=== PATIENT | female | born 1970 | race Caucasian/White ===

== ENCOUNTER 2020-06-26 12:10 | Outpatient (CLI) | payer MEDICARE, MEDICAID, SELFPAY ==
--- NOTE | 2020-06-26 12:26 | XRR_ITS ---
PROCEDURE INFORMATION: Exam: XR Chest, 2 Views Exam date and time: 06/26/2020 12:39 PM Age: 49 years old Clinical indication: Other: Hemoptysis; Prior surgery; Surgery type: Port; Patient HX: Lymphoma TECHNIQUE: Imaging protocol: XR of the chest Views: 2 views. COMPARISON: CR Chest 1 [place] [id number] 11/19/2018 3:25 PM FINDINGS: Lungs: Unremarkable. No consolidation. Pleural space: Unremarkable. No pleural effusion. No pneumothorax. Heart/Mediastinum: Unremarkable. No cardiomegaly. Bones/joints: Unremarkable. XR/XR chest 2V* [id number] IMPRESSION: No acute findings.
== END 2020-06-26 12:11 | disposition home or self-care (01) ==
PROVIDERS: PCP Family Medicine; Visit Provider Family Medicine
DX: R04.2 Hemoptysis (principal)
CPT/HCPCS: 71046

== ENCOUNTER 2020-07-06 11:19 | Outpatient (CLI) | payer MEDICARE, MEDICAID, SELFPAY ==
--- NOTE | 2020-07-06 11:27 | CT_ITS ---
WS: [id number] CT CHEST TECHNIQUE: Contrast enhanced CT of the chest with coronal and sagittal reformatted images. CLINICAL INFORMATION: HEMOPTYSIS COMPARISON: None. DLP: 555.[address] scans at [facility] use at least one of these dose optimization techniques: automat ed exposure control; mA and/or kV adjustment per patient size (includes targeted exams where dose is matched to clinical indication); or iterative reconstruction. FINDINGS: Cavitating thick-walled fluid-filled lesion in the superior segment right lower lobe posterior medial ly with air locules. Lobulated lesion measures approximately 1.5 x 2.5 x 2.3 CM. Small amount of surr ounding infiltrate. Additional adjacent small satellite nodules. Small amount of associated pleural t hickening. Mild chronic emphysematous changes. Slight bibasilar atelectasis. No other suspicious pulmonary paren chymal abnormalities. Normal caliber thoracic aorta. Proximal main pulmonary arteries are normal. A f ew prominent right hilar, peribronchial and AP window lymph nodes upper limits of normal. No axillary lymphadenopathy. Adrenal glands are normal. Mild diffuse fatty infiltration liver. CT/CT chest w con* [id number] IMPRESSION: 1. Cavitating centrally necrotic intraparenchymal mass in the super segment ri ght lower lobe posterior medially. Lesion measures 1.5 x 2.5 x 2.3 cm with a fe w locules of air. Primary consideration is pulmonary abscess. Additional consid erations include cavitary neoplasm, and fungal or granulomatous infection. Chang mmend correlation with clinical symptoms and follow-up to resolution. 2. A few prominent right hilar, peribronchial, and AP window lymph nodes upper limits of normal. 3. Mild chronic emphysematous changes. 4. Mild diffuse fatty infiltration liver.
[2020-07-06] MEDS: iohexol 300 mg/mL 100 mL Btl IV (11:56)
== END 2020-07-06 11:20 | disposition home or self-care (01) ==
PROVIDERS: PCP Family Medicine; Visit Provider Family Medicine
DX: R04.2 Hemoptysis (principal); R91.8 Other nonspecific abnormal finding of lung field; K76.0 Fatty (change of) liver, not elsewhere classified
CPT/HCPCS: 71260; Q9967

== ENCOUNTER 2020-08-10 09:50 | Outpatient (CLI) | payer MEDICARE, MEDICAID, SELFPAY ==
--- NOTE | 2020-08-10 09:58 | XR_ITS ---
WS: [id number] HIP WITH PELVIS LEFT TECHNIQUE: 3 views of the left hip with pelvis CLINICAL INFORMATION: LEFT HIP PAIN COMPARISON: None. FINDINGS: Osteopenia. Postoperative changes intramedullary warren and screw fixation left hip and proximal femur. No evidence of hardware loosening. Distal femoral warren is intact. XR/XR hip LT 2-3V wo/w pel* [id number] IMPRESSION: Stable intramedullary warren and screw fixation left hip and proximal femur. No ev idence of hardware loosening.
== END 2020-08-10 09:51 | disposition home or self-care (01) ==
PROVIDERS: PCP Family Medicine; Visit Provider Family Medicine
DX: M25.552 Pain in left hip (principal)
CPT/HCPCS: 73502

== ENCOUNTER → 2020-12-08 12:56 | Outpatient (BNVA) | payer MEDICARE, MEDICAID, SELFPAY | PROVIDERS: PCP Family Medicine; Visit Provider Internal Medicine Pulmonary Disease | DX: R06.02 Shortness of breath (principal); Z20.822 Contact with and (suspected) exposure to COVID-19 | CPT/HCPCS: 87635 ==

== ENCOUNTER 2020-12-14 13:24 | Outpatient (CLI) | payer MEDICARE, MEDICAID, SELFPAY ==
--- NOTE | 2020-12-14 13:30 | CT_ITS ---
WS: [id number] CT CHEST WITHOUT INTRAVENOUS CONTRAST HISTORY: Resolution of pneumonia vs mass lesion in RLL TECHNIQUE: Contiguous 5 mm axial imaging performed on the thorax. Coronal and sagittal reformats are submitted. All CT scans at [facility] use at least one of these dose optimization techniq ues: automated exposure control; mA and/or kV adjustment per patient size (includes targeted exams wh ere dose is matched to clinical indication); or iterative reconstruction. CONTRAST: None DLP: 515.55 mGy.cm COMPARISON: 07/06/2020 Lungs and central airway: There is been significant improvement in the recently described cavitary le radha in the RIGHT lower lobe. There is a small amount of scarring with pleural thickening and tetheri ng at the abscess site. No residual cavity or nodule. Stable 2 mm partially calcified nodule in the R IGHT lower lobe. No suspicious masses. No effusion. Pleura: Normal. No pleural effusion. Heart and pericardium: Normal size heart with no pericardial effusion. Mediastinum and viki: No mediastinum or hilar adenopathy. Vessels: Mild atherosclerosis aorta. Normal size pulmonary artery. Chest wall and lower neck: No soft tissue masses. Upper abdomen: No change. Osseous structures: No destructive process. CT/CT chest wo con [id number] IMPRESSION: 1. Resolution of the cavitary lesion in the RIGHT lower lobe seen on 0 consistent with an abscess. There is very minimal parenchymal scar remaining. 2. No adenopathy.
--- NOTE | 2020-12-14 14:44 | PFTS_ITS ---
Date of Study:12/14/20 Date of Dictation: MECHANICS: Forced vital capacity (FVC) is reduced. Forced expiratory volume in one second (FEV1) is normal. FEV1/FVC is normal. FLOW VOLUME LOOP: Normal. LUNG VOLUMES: Not measured DIFFUSING CAPACITY FOR CARBON MONOXIDE: Moderately reduced INTERPRETATION: The prebronchodilator spirometry is consistent with mild restriction. Lung volumes are not measured. Gas exchange (DLCO) is moderately reduced. MTDD
== END 2020-12-14 13:25 | disposition home or self-care (01) ==
LOC: RAD 13:27
PROVIDERS: PCP Family Medicine; Visit Provider Internal Medicine Pulmonary Disease
DX: J44.9 Chronic obstructive pulmonary disease, unspecified (principal); Z71.6 Tobacco abuse counseling; F17.200 Nicotine dependence, unspecified, uncomplicated; R91.8 Other nonspecific abnormal finding of lung field; J69.0 Pneumonitis due to inhalation of food and vomit; C14.0 Malignant neoplasm of pharynx, unspecified
CPT/HCPCS: 71250; 94010; 94729

== ENCOUNTER 2021-03-05 07:58 | Outpatient (CLI) | payer MEDICARE, MEDICAID, SELFPAY ==
--- NOTE | 2021-03-05 08:00 | CT_ITS ---
WS: [id number] CT ANGIOGRAPHY OF THE ABDOMINAL AORTA WITH RUNOFF TO THE ANKLES HISTORY: I25.10 - Atherosclerotic heart disease of [place] coronary... TECHNIQUE: Arterial injection is performed during imaging to evaluate the aorta and runoff vessels to the ankles. MIP and volume rendering imaging has also been performed. All images are reviewed. All C T scans at [facility] use at least one of these dose optimization techniques: automated ex posure control; mA and/or kV adjustment per patient size (includes targeted exams where dose is match ed to clinical indication); or iterative reconstruction. Contrast: Omnipaque 300; 75 mL IV. DLP: 1242.26 mGycm COMPARISON: None available. Abdominal aorta: Moderate atherosclerotic plaque in the suprarenal aorta. Below the level of the wisam l arteries there is significant intimal thickening measuring up to 7 mm along the LEFT lateral aorta. Complete occlusion of the distal aorta just prior to the bifurcation. RIGHT lower extremity arterial system: Dense calcified plaque and the common iliac artery is occluded . Reconstitution with flow identified in the internal iliac artery. There is reconstitution of rn utilization management um al iliac flow into the femoral artery over the acetabulum. There is calcified plaque with narrowing n ear 50% involving the femoral artery. Deep profunda and SFA are intact. Popliteal artery is intact. T here is three-vessel runoff to the ankle but the caliber of the vessels is small. LEFT lower extremity arterial system: LEFT common iliac artery is occluded with heavy calcified plaqu e. Reconstitution through smaller collaterals in the internal iliac artery. There is reconstitution i nto the LEFT femoral artery over the acetabulum. Small amount of calcified plaque in the common femor al artery. Deep profunda and SFA are intact although small caliber. Three-vessel runoff to the ankle but the arteries are small caliber. Chronic emphysematous changes at the lung bases. Heart is normal size. Liver, spleen, gallbladder, pa ncreas, adrenals and kidneys are negative for acute process or mass. No adenopathy or ascites or flui d. Moderate constipation. No GI tract obstruction. Normal urinary bladder. Fatty atrophy of the RIGHT va stus medialis. Intramedullary warren in the LEFT femur. CT/CT angio abd aorta runof [id number] IMPRESSION: 1. 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 2. Collateral reconstitution bilaterally in the distal common femoral arteries . 3. Three-vessel runoff to the ankles but the vessels are small caliber.
[2021-03-05] MEDS: iohexol 350 mg/mL 100 mL Btl IV (08:46)
== END 2021-03-05 07:59 | disposition home or self-care (01) ==
PROVIDERS: PCP Family Medicine; Visit Provider Internal Medicine Cardiovascular Disease
DX: I25.10 Atherosclerotic heart disease of native coronary artery without angina pectoris (principal); I73.9 Peripheral vascular disease, unspecified; I74.5 Embolism and thrombosis of iliac artery; I74.09 Other arterial embolism and thrombosis of abdominal aorta
CPT/HCPCS: 75635; Q9967

== ENCOUNTER → 2021-07-06 14:21 | Outpatient (BNVA) | payer MEDICARE, MEDICAID, SELFPAY | PROVIDERS: PCP Family Medicine; Visit Provider Surgery | DX: Z20.822 Contact with and (suspected) exposure to COVID-19 (principal) | CPT/HCPCS: 87635 ==

== ENCOUNTER 2021-07-11 09:37 | Day surgery (SDC) | payer MEDICARE, MEDICAID, SELFPAY ==
[2021-07-09 13:45] VITALS: BMI 21.5
--- NOTE | 2021-07-11 09:58 | ANES.PREANE2 ---
Pre-Anesthetic Assessment Pre-Anesthetic Assessment: Height/Weight: Height 1.57 m Weight 53.524 kg Preop Diagnosis: Screening colonoscopy Proposed Procedure: Operation Date: 07/11/21 10:45 Proposed Procedures p Colonoscopy 32304 Z12.11(Not Applicable) - Richard Meneses MD Was Beta Milly taken within 24 hours: Yes Was Clonidine taken within 24 hours: N/A Social: Social History: Tobacco and No alcohol Exam: Pre-Anes Outpt Exam: alert, oriented x 3 and regular rate & rhythm Airway: Submandibular: WNL Cervical ROM: WNL MP: 2 Dentition: Chipped Additional comments: Poor dentition Pulmonary: Pulmonary: COPD and Sleep apnea CV/HEM: CV/HEM: Anemia, CAD (stent), HTN and PVD GI: GI: GERD Metabolic: Metabolic: Hyperlipidemia Musc/skel: Comments: uses walker Neuropsych: Neuropsych: Neuropathy Anesthetic Plan: ASA status: 3 Anesthesia: MAC Risk of > 500 ml blood loss (7ml/kg in children): No PFSH Anesthesia PFSH: Medical History CAD (coronary artery disease) GERD (gastroesophageal reflux disease) History of femoral angiogram HTN (hypertension) Hypothyroidism Peripheral arterial disease Seizure disorder Throat cancer Surgical History H/O tubal ligation Family History Mother Osteoarthritis Sister Thyroid disease Social History Smoking and tobacco status: current every day smoker cigarettes Packs smoked per day: 0.5 Years cigarettes smoked: 37 Quit status (tobacco): considering quitting Second hand smoke exposure: Yes Smoking risk assessment/counseling performed?: Yes Alcohol intake: current Alcohol intake frequency: few times a week Caregiver/support person: Yes Lives independently: Yes Household members: none Housing: Manufactured/Mobile home Marital status: / Current occupational status: disabled Pets and animals: Yes History of recent travel: No Current gender identity: Female Data Anesthesia Cardiac Studies: No Data to Display
[2021-07-11 10:17] VITALS: BP 107/71; PULSE 115; RESP 18; TEMP 36.1; O2SAT 95
--- NOTE | 2021-07-11 10:24 | P.HP_ITS ---
Same Day Surgery H&P Indication for Procedure/HPI DATE OF PROCEDURE: July 11, 2021 CHIEF COMPLAINT/INDICATIONFOR SURGICAL PROCEDURE: Screening colonoscopy PREOP DIAGNOSIS: Screening colonoscopy PLANNED PROCEDRUE: Operation Date: 07/11/21 10:45 Proposed Procedures p Colonoscopy 65875 Z12.11(Not Applicable) - Richard Meneses MD ROS May 17, 2021 This is a pleasant 50 years old female patient referred to my practice to discuss screening colonoscopy. Patient denies any bleeding per rectum or hist ory of colon cancer yet she reports that she has history of lymphoma., Patient is referred for further evaluation for colonoscopy Interim history July 11, 2021. Patient comes today for screening colonoscopy Medications/Allergies* Home Medications Medication Instructions Recorded Confirmed Type alprazolam 2 mg tablet 2 mg PO BID 07/24/20 07/11/21 History cetirizine 10 mg capsule 10 mg PO DAILY 07/24/20 07/11/21 History clopidogrel 75 mg tablet 75 mg PO DAILY 07/24/20 07/11/21 History colchicine 0.6 mg tablet 0.6 mg PO DAILY 07/24/20 07/11/21 History cyclobenzaprine 10 mg tablet 10 mg PO TID 07/24/20 07/11/21 History ferrous sulfate 325 mg (65 mg 325 mg PO DAILY 07/24/20 07/11/21 History iron) tablet levothyroxine 112 mcg capsule 112 mcg PO DAILY 07/24/20 07/11/21 History mirtazapine 15 mg tablet 15 mg PO DAILY 07/24/20 07/11/21 History montelukast 10 mg tablet 10 mg PO DAILY 07/24/20 07/11/21 History omeprazole magnesium 20 mg 20 mg PO DAILY 07/24/20 07/11/21 History capsule,delayed release oxybutynin chloride 5 mg tablet 5 mg PO DAILY 07/24/20 07/11/21 History oxycodone 80 mg tablet,crush 80 mg PO BID 07/24/20 07/11/21 History resistant,extended release 12 hr prenat.vits,daniela,kza-nfaz-lpfyx 1 tab PO DAILY 07/24/20 07/11/21 History promethazine 25 mg tablet 25 mg PO TID PRN 07/24/20 07/11/21 History albuterol sulfate 90 mcg/actuation 2 inh INHALATION Q4H PRN 10/10/20 07/11/21 History breath activated powder inhaler oxycodone 15 mg tablet 15 mg PO Q4H PRN 10/10/20 07/11/21 History oxycodone 30 mg tablet 30 mg PO Q4H PRN 10/10/20 07/11/21 History oxycodone myristate 27 mg capsule 27 mg PO BID 10/10/20 07/11/21 History sprinkle extended release 12hr(DON'T CRUSH) potassium chloride 20 mEq 20 meq PO TID tab 11/29/20 07/11/21 History tablet,extended release bupropion HCl 100 mg tablet,12 hr 100 mg PO BID 12/27/20 07/11/21 History sustained-release gabapentin 1 unit PO DAILY 04/25/21 07/11/21 History Allergies/Adverse Reactions Allergy/AdvReac Type Severity Reaction Status Date / Time adhesive Allergy Unknown rash Verified 07/11/21 10:25 amoxicillin Allergy Unknown rash Verified 07/11/21 10:25 aspirin Allergy Unknown Verified 07/11/21 10:25 hydroxyzine Allergy rash Verified 07/11/21 10:25 morphine Allergy Unknown Verified 07/11/21 10:25 nicotine [From Nicotrol] Allergy Unknown Verified 07/11/21 10:25 nitrofurantoin Allergy ALGY-Wheezi Verified 07/11/21 10:25 [From Macrobid] ng petrolatum,white Allergy rash Verified 07/11/21 10:25 [From Vaseline] vancomycin Allergy rash Verified 07/11/21 10:25 Pertinent History/Comorbid Conditions* Medical History (Updated 05/20/21 @ 09:52 by Richard Meneses MD) CAD (coronary artery disease) GERD (gastroesophageal reflux disease) History of femoral angiogram HTN (hypertension) Hypothyroidism Peripheral arterial disease Seizure disorder Throat cancer Surgical History (Updated 01/24/21 @ 15:14 by Alexandra Alcala MD) H/O tubal ligation Family History (Updated 07/24/20 @ 16:20 by Chaz Read LPN) Osteoarthritis Mother Thyroid disease Sister Social History Smoking and tobacco status: current every day smoker cigarettes Packs smoked per day: 0.5 Years cigarettes smoked: 37 Quit status (tobacco): considering quitting Second hand smoke exposure: Yes Smoking risk assessment/counseling performed?: Yes Alcohol intake: current Alcohol intake frequency: few times a week Caregiver/support person: Yes Lives independently: Yes Household members: none Housing: Manufactured/Mobile home Marital status: / Current occupational status: disabled Pets and animals: Yes History of recent travel: No Current gender identity: Female Pertinent Exam Findings alert, oriented x 3, regular rate & rhythm and procedure specific exam findings (Abdominal examination nontender nondistended soft) Recommendations Surgery/Procedure today (Colonoscopy with possible biopsy) Coding Level of Care Code Acute Family Engagement Specialist for Luc Rivers
[2021-07-11] MEDS: sodium chloride 0.9% 1,000 ML 30 ML IV (10:25)
[2021-07-11 11:36] VITALS: BP 105/68; PULSE 105; RESP 16; TEMP 36.1; O2SAT 93
[2021-07-11 12:00] VITALS: BP 101/73; PULSE 97; RESP 18; O2SAT 92
--- NOTE | 2021-07-11 12:52 | ANES.PREANE2 ---
Pre-Anesthetic Assessment Pre-Anesthetic Assessment: Height/Weight: Height 1.57 m Weight 53.524 kg Temp Pulse Resp BP Pulse Ox 97.0 F L 97 18 101/73 92 07/11/21 11:36 07/11/21 12:00 07/11/21 12:00 07/11/21 12:00 07/11/21 12:00 Preop Diagnosis: Screening colonoscopy Proposed Procedure: Operation Date: 07/11/21 10:45 Proposed Procedures p Colonoscopy 03188 Z12.11(Not Applicable) - Richard Meneses MD Was Beta Milly taken within 24 hours: N/A Was Clonidine taken within 24 hours: N/A Last intake: Intake Last Liquid Date 07/10/21 Last Liquid Time 00:00 Last Solid Date 07/09/21 Last Solid Time 00:00 PFSH Anesthesia PFSH: Medical History CAD (coronary artery disease) GERD (gastroesophageal reflux disease) History of femoral angiogram HTN (hypertension) Hypothyroidism Peripheral arterial disease Seizure disorder Throat cancer Surgical History H/O tubal ligation Family History Mother Osteoarthritis Sister Thyroid disease Social History Smoking and tobacco status: current every day smoker cigarettes Packs smoked per day: 0.5 Years cigarettes smoked: 37 Quit status (tobacco): considering quitting Second hand smoke exposure: Yes Smoking risk assessment/counseling performed?: Yes Alcohol intake: current Alcohol intake frequency: few times a week Caregiver/support person: Yes Lives independently: Yes Household members: none Housing: Manufactured/Mobile home Marital status: / Current occupational status: disabled Pets and animals: Yes History of recent travel: No Current gender identity: Female Data Anesthesia Cardiac Studies: No Data to Display
--- NOTE | 2021-07-11 12:53 | ANE.PACU2 ---
Inpatient post-anesthesia follow up: Airway intact: Yes Vital signs: Temperature 97.0 F Pulse Rate 97 Respiratory Rate 18 Blood Pressure 101/73 Pulse Oximetry 92 Oxygen Delivery Me thod Room Air Oxygen Flow Rate Fraction of Inspir ed Oxygen Hydration adequate: Yes Nausea and vomiting: No Mental status: Baseline
== END 2021-07-11 12:26 | disposition home or self-care (01) ==
PROVIDERS: PCP Family Medicine; Visit Provider Surgery
PROC: 0DJD8ZZ Inspection of Lower Intestinal Tract, Via Natural or Artificial Opening Endoscopic (ICD-10-PCS; CPT 45378; principal; 2021-07-11 10:45)
DX: Z12.11 Encounter for screening for malignant neoplasm of colon (principal); I25.10 Atherosclerotic heart disease of native coronary artery without angina pectoris; K21.9 Gastro-esophageal reflux disease without esophagitis; I10 Essential (primary) hypertension; E03.9 Hypothyroidism, unspecified; Z85.89 Personal history of malignant neoplasm of other organs and systems; F17.210 Nicotine dependence, cigarettes, uncomplicated; J44.9 Chronic obstructive pulmonary disease, unspecified; G47.30 Sleep apnea, unspecified; Z95.5 Presence of coronary angioplasty implant and graft; E78.5 Hyperlipidemia, unspecified
CPT/HCPCS: 96360; 96361; G0121; J2704; J7030

== ENCOUNTER → 2021-07-23 16:20 | Outpatient (BNVA) | payer MEDICARE, MEDICAID, SELFPAY | PROVIDERS: PCP Family Medicine; Visit Provider Internal Medicine Pulmonary Disease | DX: Z20.822 Contact with and (suspected) exposure to COVID-19 (principal) | CPT/HCPCS: 87635 ==

== ENCOUNTER 2021-08-21 08:11 | Outpatient (CLI) | payer MEDICARE, MEDICAID, SELFPAY ==
[2021-08-21 08:30] VITALS: BMI 21.4
--- NOTE | 2021-08-21 08:32 | ECG_ITS ---
[facility] Test Date: 2021-08-21 Pat Name: Amanda Hutchinson Department: Room: Gender: Female It Support Analyst: : 1970 Requested By: Alexandra Alcala Order Number: [id number] Alexx MD: Alexandra Alcala M.D. Interpretive Statements NAME OF STUDY: LEXISCAN SESTAMIBI STRESS TEST INDICATION: Chest Pain; Shortness of Breath PROCEDURE: At the baseline, the blood pressure was 109/75 mmHg, oxygen saturation 93% with a heart rate of of 101 bpm. The electrocardiogram showed sinus tachycardia, normal axis. Poor anterior R wave progression. The Lexiscan was infused over a period of 20 seconds. A total of 0.4 milligrams of Lexiscan was infused. The stress phase was continued for a total of 5 minutes. Heart rate at the end of the stress phase was 119 bpm, oxygen saturation 93% with a blood pressure of 114/58 mmHg. The EKG at the peak infusion revealed sinus tachycardia with no significant ST-T wave changes. Sestamibi was injected 20 seconds after the Lexiscan infusion. Blood pressure at the end of the recovery phase was 109/56 mmHg, oxygen saturation 93% with a heart rate of 120 beats per minute. CONCLUSION: 1. No significant EKG changes with the LexiScan infusion. 2. No LexiScan induced chest pain or cardiac arrhythmia. 3. Normal blood pressure and heart rate response. 4. Sestamibi/sestamibi perfusion scan pending; see separate report. Electronically Signed On 08-24-2021 13:27:12 EMPLOYEE RELATIONS REPRESENTATIVE by Alexandra Alcala M.D. [id number]
--- NOTE | 2021-08-21 08:32 | NMCV_ITS ---
NM man perf SPECT r/s* [id number] Amanda Hutchinson Age: 50 Gender: F : 1970 Exam Date: 08/21/2021 08:32 Ordering Phys: Alexandra Alcala MD ([email or web address]) Technologist: ELIECER Vilchis Exam Location: [facility] Indications: HYPERTENSION STRESS TEST Please see separate stress test report in [facility] for full findings IMAGE PROTOCOL Rest/Stress 1 Lexiscan Day Radiopharmaceutical Dose (mCi) Administration Site Administered by Rest: Tc-99m 10.6 IV ELIECER Vilchis Sestamibi Stress:Tc-99m 32.5 IV ELIECER Villareal Sestamibi Rest: 21-Aug-2021 60 Discovery 630 Stress: 21-Aug-2021 30 Discovery 630 0.4mg Lexiscan. Images obtained in supine and prone position. SPECT RESULTS Technical Quality: Excellent Raw Data Analysis: Normal Image Corrections: No attenuation or motion correction applied Summed Stress Score: 8 Summed Rest Score: 4 Summed Difference Score: 4 PERFUSION FINDINGS Small sized perfusion abnormality of mild severity of apical inferior, apical lateral and apical jason on rest images with mild reversibility in apical lateral wall. There is improved tracer uptake on prone stress images. FUNCTIONAL RESULTS (calculated via Gated SPECT) Stress Image LV EF (%): 64 Stress EDV (mL):67 TID: 1.05 Stress ESV (mL):24 FUNCTIONAL FINDINGS: The left ventricle is normal in size. Transient Ischemia Dilatation of 1.1. There is normal left ventricular systolic function. The left ventricular ejection fraction is normal with a value of 64%. There is normal left ventricular wall thickening with no regional wall motion abnormality. IMPRESSIONS 1. Small sized perfusion abnormality of mild severity of apical inferior, apical lateral and apical jason. 2. This likely represent attenuation artifact. Old myocardial infarction in left anterior descending artery territory with mild johnnie-infarct ischemia cannot be completely ruled out. 3. Overall left ventricular systolic function is normal without regional wall motion abnormalities. 4. The left ventricular ejection fraction is normal with a value of 64%. 5. EKG portion of the study will be reported separately. Alexandra Alcala MD (Electronically Signed) Final Date: 23 August 2021 17:41 S
[2021-08-21] MEDS: regadenoson 0.4 Mg/5 ml Syringe IVP (10:23)
[2021-08-21 10:40] VITALS: BP 115/68; PULSE 120
== END 2021-08-21 08:12 | disposition home or self-care (01) ==
PROVIDERS: PCP Family Medicine; Visit Provider Internal Medicine Cardiovascular Disease
DX: R07.9 Chest pain, unspecified (principal); R06.02 Shortness of breath
CPT/HCPCS: 78452; 93017; A9500; J2785

== ENCOUNTER → 2022-03-08 09:29 | Outpatient (BNVA) | payer MEDICARE, MEDICAID, SELFPAY | PROVIDERS: PCP Family Medicine; Visit Provider Internal Medicine Pulmonary Disease | DX: J44.9 Chronic obstructive pulmonary disease, unspecified (principal); C14.0 Malignant neoplasm of pharynx, unspecified; J98.4 Other disorders of lung; R05.8 Other specified cough; F17.210 Nicotine dependence, cigarettes, uncomplicated; I10 Essential (primary) hypertension; K21.9 Gastro-esophageal reflux disease without esophagitis; E03.9 Hypothyroidism, unspecified | CPT/HCPCS: 99214 ==

== ENCOUNTER 2022-05-08 13:07 | Outpatient (CLI) | payer MEDICARE, MEDICAID, SELFPAY ==
--- NOTE | 2022-05-08 14:31 | PFTS_ITS ---
Date of Study:05/08/22 Date of Dictation: MECHANICS: Forced vital capacity (FVC) is reduced. Forced expiratory volume in one second (FEV1) is normal. FEV1/FVC is normal. FLOW VOLUME LOOP: Hesitation throughout the expiratory limb of flow volume loop. LUNG VOLUMES: Total lung capacity (TLC) is normal. Residual volume (RV) is increased. DIFFUSING CAPACITY FOR CARBON MONOXIDE: Moderately reduced. INTERPRETATION: The prebronchodilator spirometry is consistent with moderate restriction. The postbronchodilator spirometry is consistent with mild restriction. The patient had a significant postbronchodilator response. Lung volumes are consistent with air trapping. Gas exchange (DLCO) is moderately reduced. MTDD
== END 2022-05-08 13:08 | disposition home or self-care (01) ==
LOC: RT 13:09
PROVIDERS: PCP Family Medicine; Visit Provider Internal Medicine Pulmonary Disease
DX: J98.4 Other disorders of lung (principal); J44.9 Chronic obstructive pulmonary disease, unspecified
CPT/HCPCS: 94060; 94618; 94726; 94729

== ENCOUNTER → 2022-06-24 15:15 | Outpatient (BNVA) | payer MEDICARE, MEDICAID, SELFPAY | PROVIDERS: PCP Family Medicine; Visit Provider Internal Medicine Pulmonary Disease | DX: R06.02 Shortness of breath (principal); J44.9 Chronic obstructive pulmonary disease, unspecified; J98.4 Other disorders of lung; F17.210 Nicotine dependence, cigarettes, uncomplicated; R05.8 Other specified cough; I73.9 Peripheral vascular disease, unspecified; I25.10 Atherosclerotic heart disease of native coronary artery without angina pectoris; I74.5 Embolism and thrombosis of iliac artery; I74.09 Other arterial embolism and thrombosis of abdominal aorta; R13.10 Dysphagia, unspecified; Z85.819 Personal history of malignant neoplasm of unspecified site of lip, oral cavity, and pharynx; Z92.21 Personal history of antineoplastic chemotherapy | CPT/HCPCS: 99214 ==

== ENCOUNTER 2022-08-08 09:56 | Outpatient (CLI) | payer MEDICARE, MEDICAID, SELFPAY ==
--- NOTE | 2022-08-08 10:00 | CT_ITS ---
WS: [id number] LDCT LUNG CANCER SCREENING TECHNIQUE: Noncontrast CT of the chest with coronal and sagittal reformatted images. CLINICAL INFORMATION: lung screenin COMPARISON: CT chest November 16, 2020 DLP: 75.07 mGy.cm DIvol: Mean CTDIvol: 1.60 (mGy) All CT scans at [facility] use at least one of these dose optimization techniques: automat ed exposure control; mA and/or kV adjustment per patient size (includes targeted exams where dose is matched to clinical indication); or iterative reconstruction. FINDINGS: Moderate chronic emphysematous changes. No acute pulmonary infiltrates. No focal pneumonia or pleural fluid. Bibasilar atelectasis. No suspicious pulmonary parenchymal opacities. Aortic calcification. N o mediastinal or hilar lymphadenopathy. Coronary calcification. Normal GE junction. Adrenal glands are normal. CT/CT lung screening [id number] IMPRESSION: LUNG-RADS: 1-Negative FOLLOW UP: 12 Month: Continue annual screening with LDCT
== END 2022-08-08 09:57 | disposition home or self-care (01) ==
LOC: RAD 09:57
PROVIDERS: PCP Family Medicine; Visit Provider Internal Medicine Pulmonary Disease
DX: Z12.2 Encounter for screening for malignant neoplasm of respiratory organs (principal); F17.210 Nicotine dependence, cigarettes, uncomplicated
CPT/HCPCS: 71271

== ENCOUNTER → 2022-11-12 14:21 | Outpatient (BNVA) | payer MEDICARE, MEDICAID, SELFPAY | PROVIDERS: PCP Family Medicine; Visit Provider Nurse Practitioner Family | DX: I10 Essential (primary) hypertension (principal); I73.9 Peripheral vascular disease, unspecified; F17.210 Nicotine dependence, cigarettes, uncomplicated | CPT/HCPCS: 99214 ==

== ENCOUNTER → 2022-11-27 14:19 | Outpatient (BNVA) | payer MEDICARE, MEDICAID, SELFPAY | PROVIDERS: PCP Family Medicine; Referring Provider Family Medicine; Visit Provider Orthopaedic Surgery | DX: M87.052 Idiopathic aseptic necrosis of left femur (principal) | CPT/HCPCS: 73502; 99213 ==

== ENCOUNTER → 2023-03-11 15:15 | Outpatient (BNVA) | payer MEDICARE, MEDICAID, SELFPAY | PROVIDERS: PCP Family Medicine; Visit Provider Internal Medicine Pulmonary Disease | DX: J44.9 Chronic obstructive pulmonary disease, unspecified (principal); J98.4 Other disorders of lung; F17.210 Nicotine dependence, cigarettes, uncomplicated; R05.8 Other specified cough; Z85.89 Personal history of malignant neoplasm of other organs and systems; R49.0 Dysphonia; I73.9 Peripheral vascular disease, unspecified; I25.10 Atherosclerotic heart disease of native coronary artery without angina pectoris | CPT/HCPCS: 99214 ==

== ENCOUNTER → 2023-04-29 13:46 | Outpatient (BNVA) | payer MEDICARE, MEDICAID, SELFPAY | PROVIDERS: PCP Family Medicine; Visit Provider Internal Medicine Cardiovascular Disease | DX: I73.9 Peripheral vascular disease, unspecified (principal); E03.9 Hypothyroidism, unspecified; I10 Essential (primary) hypertension; I25.10 Atherosclerotic heart disease of native coronary artery without angina pectoris; J44.9 Chronic obstructive pulmonary disease, unspecified; F17.210 Nicotine dependence, cigarettes, uncomplicated | CPT/HCPCS: 99214 ==

== ENCOUNTER 2023-05-21 12:54 | Outpatient (CLI) | payer MEDICARE, MEDICAID, SELFPAY ==
--- NOTE | 2023-05-21 13:45 | USCV_ITS ---
Amanda Hutchinson Age: 52 Gender: F : 1970 Exam Date: 05/21/2023 13:15 Ordering Phys: Alexandra Alcala MD ([email or web address]) Technologist: MARCELLO [place] [facility] [place]ication: aneurysm HISTORY: No known history of aortic aneurysm Diameter (cm) AP x Transverse x Length Velocity (cm/s) Waveform Prox Aorta: 1.70 x 1.61 x 63.30 Mid Aorta: 1.84 x 1.86 x 83.00 Distal Aorta: 1.88 x 1.81 x 53.10 Right Iliac Prox: 0.79 x 1.07 x 90.70 Left Iliac Prox: 0.83 x 1.18 x 92.50 Stent Prox Landing x x Aneurysmal Sac Max x x Lt Lat Sac Dim Rt Lat Sac Dim Stent Dist Landing x x Right Iliac Stent x x Left Iliac Stent x x Right Renal Art Left Renal Art FINDINGS: Comparison: none available. No evidence of abdominal aortic or bilateral iliac aneurysm. No significant stenosis noted in the abdominal aorta. There is no evidence of a right common iliac artery aneurysm. There is no evidence of a left common iliac artery aneurysm. CONCLUSIONS No evidence of abdominal aortic or bilateral iliac aneurysm. Dr. Kaitlin Mercado DO (Electronically Signed) Final Date: 21 May 2023 16:03 S
--- NOTE | 2023-05-21 14:30 | USR_ITS ---
PROCEDURE INFORMATION: Exam: US Duplex Bilateral Lower Extremity Arteries Exam date and time: 05/21/2023 1:25 PM Age: 52 years old Clinical indication: Leg, lower; Bilateral; Patient HX: Cold and painful lower extremities. Patient states arterial cleaning into iliacs ; Additional info: Pvd TECHNIQUE: Imaging protocol: Real-time ultrasound scan of the arteries of the bilateral lower extremities with 2-D joyner scale, color Doppler flow and spectral waveform analysis. Images documented and saved. [id number](s) are provided. COMPARISON: No recent ultrasound comparison studies currently available. Lower extremity runoff report of 03/05/2021. Hip radiograph report of 11/27/2022. FINDINGS: Right external iliac artery: The systolic velocity measurement is 73 cm/s. No occlusion or significant stenosis is currently appreciated. There is a history of previous occlusion with collateralization to the common femoral from the inferior epigastric and abdominal wall vessels. Consider also if there is interval intervention as there is some subtle wall undulation. Right common femoral artery: The systolic velocity measurement is 71 cm/s. No occlusion or significant stenosis is appreciated. Right profunda femoris artery: Not included. Right superficial femoral artery: The systolic velocity measurement is 97 cm/s. No occlusion or significant stenosis is appreciated. Right popliteal artery: The systolic velocity measurement is 73 cm/s. No occlusion or significant stenosis is appreciated. Right calf/foot arteries: The systolic velocity measurement is 113 cm/s. No occlusion or significant stenosis is appreciated. The provided right ankle-brachial index is 1.16. Left external iliac artery: The systolic velocity measurement is 76 cm/s. No occlusion or significant stenosis is currently appreciated. There is history of previous occlusion with collateralization to the common femoral from the inferior epigastric and abdominal wall vessels. Consider also if there is interval intervention as there is some subtle wall undulation. Left common femoral artery: The systolic velocity measurement is 79 cm/s. No occlusion or significant stenosis is appreciated. Left profunda femoris artery: Not included. Left superficial femoral artery: The systolic velocity measurement is 135 cm/s. No occlusion or significant stenosis is appreciated. Left popliteal artery: The systolic velocity measurement is 73 cm/s. No occlusion or significant stenosis is appreciated. Left calf/foot arteries: The systolic velocity measurement is 71 cm/s. No occlusion or significant stenosis is appreciated. The provided left ankle-brachial index is 1.18. Soft tissues: No subcutaneous fluid collections are appreciated. Other findings: No other significant interval changes are appreciated. US/[place] [id number] IMPRESSION: There is patent overall lower extremity arterial color Doppler flow with relatively triphasic waveform appearance bilaterally. No focal velocity doubling to indicate localized hemodynamically significant stenosis is currently appreciated.
== END 2023-05-21 12:55 | disposition home or self-care (01) ==
PROVIDERS: PCP Family Medicine; Visit Provider Internal Medicine Cardiovascular Disease
DX: I73.9 Peripheral vascular disease, unspecified (principal); I71.9 Aortic aneurysm of unspecified site, without rupture; M79.605 Pain in left leg; M79.604 Pain in right leg
CPT/HCPCS: 93925; 93978

== ENCOUNTER → 2023-06-30 10:12 | Outpatient (BNVA) | payer MEDICARE, MEDICAID, SELFPAY | PROVIDERS: PCP Family Medicine; Visit Provider Specialist | DX: M25.552 Pain in left hip; T84.84XA Pain due to internal orthopedic prosthetic devices, implants and grafts, initial encounter; Y83.8 Other surgical procedures as the cause of abnormal reaction of the patient, or of later complication, without mention of misadventure at the time of the procedure; Y79.2 Prosthetic and other implants, materials and accessory orthopedic devices associated with adverse incidents | CPT/HCPCS: 73502; 99204 ==

== ENCOUNTER 2023-07-07 14:22 | Outpatient (CLI) | payer MEDICARE, MEDICAID, SELFPAY ==
--- NOTE | 2023-07-07 14:28 | CT_ITS ---
WS: [id number] CT chest w con* [id number] HISTORY: HX OF NON HODGKIN'S LYMPHOMA/LUNG NODULE TECHNIQUE: Axial imaging performed through the thorax. Coronal and sagittal reformats are submitted. All CT scans at [facility] use at least one of these dose optimization techniques: automated exposure control; mA and/or kV adjustment per patient size (includes targeted exams where dose is mat ched to clinical indication); or iterative reconstruction. CONTRAST: Omnipaque 350; 100 mL IV. DLP: 284.95 mGy.cm COMPARISON: 08/08/2022 and 12/14/2020 Lungs and central airway: Hyperinflated lungs, no mass or nodule. Pleura: Normal. No pleural effusion. Heart and pericardium: Normal size heart with no pericardial effusion. Mediastinum and viki: There are a few small mediastinal and hilar lymph nodes. These lymph nodes are similar in size as compared to 08/08/2022. Largest lymph nodes measure 10 mm. Vessels: Mild atherosclerosis aorta. No aneurysm. Normal size pulmonary artery. Chest wall and lower neck: No soft tissue masses. Upper abdomen: Normal. Osseous structures: No destructive process. IMPRESSION: 1. Mild emphysema. No mass or nodule. No pneumonia. 2. Stable mediastinal and hilar lymph nodes. No enlarged lymph nodes.
[2023-07-07] MEDS: iohexol 350 mg/mL 500 mL Btl (per mL) IV (14:51)
== END 2023-07-07 14:23 | disposition home or self-care (01) ==
LOC: RAD 14:23
PROVIDERS: PCP Family Medicine; Visit Provider Family Medicine
DX: Z85.72 Personal history of non-Hodgkin lymphomas (principal); R91.1 Solitary pulmonary nodule; J43.9 Emphysema, unspecified
CPT/HCPCS: 71260; Q9967

== ENCOUNTER 2023-07-16 09:10 | Outpatient (CLI) | payer MEDICARE, MEDICAID, SELFPAY ==
--- NOTE | 2023-07-16 09:30 | NM_ITS ---
WS: [id number] THREE-PHASE BONE SCAN HISTORY: post op left hip complications; poss avascular necrosis COMPARISON: Radiographs LEFT hip 06/30/2023, prior bone scan 07/26/2013 Patient is is injected with 24.6 mCi Tc99m HDP intravenously. Immediate angiographic phase imaging is performed over the area of concern. Static blood pool imaging also performed. Two-hour whole-body sc intigrams performed in anterior and posterior projections. Additional large field of view imaging sub mitted as necessary. Normal angiographic and static blood pool imaging. No photopenic defect or areas of increased uptake. On the delayed imaging there is focal area of increased uptake involving the superior lateral LEFT fe moral head at the site of the radiographic abnormality. There is an adjacent gamma nail through the L EFT femoral neck. Mild photopenic defect at the site of the gamma nail. Osteoarthritic type changes at the knees and the ankles. More severe uptake involving the LEFT distal tibia. Mild LEFT AC joint arthritis. Mild facet joint arthritis LEFT cervical spine near the C3-4 le sofie. Normal soft tissue uptake. Normal renal uptake. IMPRESSION: 1. Focal moderately intense uptake involving the superior lateral LEFT femoral head at the site of th e radiographic abnormality. This is probably the reparative phase of osteonecrosis. There is no photo penic defect at this site. 2. Additional multi joint areas of osteoarthritic disease most significant at the knees and ankles.
== END 2023-07-16 09:11 | disposition home or self-care (01) ==
LOC: RAD 09:11
PROVIDERS: PCP Family Medicine; Visit Provider Specialist
DX: T81.9XXA Unspecified complication of procedure, initial encounter (principal); Y83.8 Other surgical procedures as the cause of abnormal reaction of the patient, or of later complication, without mention of misadventure at the time of the procedure
CPT/HCPCS: 78315; A9561

== ENCOUNTER → 2023-07-28 13:59 | Outpatient (BNVA) | payer MEDICARE, MEDICAID, SELFPAY | PROVIDERS: PCP Family Medicine; Visit Provider Nurse Practitioner | DX: M87.052 Idiopathic aseptic necrosis of left femur; M16.52 Unilateral post-traumatic osteoarthritis, left hip | CPT/HCPCS: 99214 ==

== ENCOUNTER 2023-08-27 13:09 | Outpatient (CLI) | payer MEDICARE, MEDICAID, SELFPAY ==
--- NOTE | 2023-08-27 13:15 | CT_ITS ---
WS: [id number] LDCT LUNG CANCER SCREENING TECHNIQUE: Noncontrast CT of the chest with coronal and sagittal reformatted images. CLINICAL INFORMATION: Screening COMPARISON: CT lung screening [address] chest 2022 DLP: 51.11 mGy.cm DIvol: Mean CTDIvol: 0.90 (mGy),Mean CTDIvol: 1.00 (mGy) All CT scans at [facility] use at least one of these dose optimization techniques: automat ed exposure control; mA and/or kV adjustment per patient size (includes targeted exams where dose is matched to clinical indication); or iterative reconstruction. FINDINGS: Moderate chronic emphysematous changes. Tiny nodule LEFT upper lobe anteriorly. Slight bibasilar atel ectasis. Calcite granuloma RIGHT lower lobe. No new suspicious pulmonary parenchymal opacities. A few prominent anterior mediastinal and parabronchial lymph nodes unchanged from previous. No axillary ly mphadenopathy. Aortic calcification. No mediastinal or hilar lymphadenopathy. Coronary calcification. Tiny esophagea l hiatal hernia. Adrenal glands are normal. IMPRESSION: CT/CT lung screening [id number] LUNG-RADS: 1-Negative FOLLOW UP: 12 Month: Continue annual screening with LDCT
== END 2023-08-27 13:10 | disposition home or self-care (01) ==
LOC: RAD 13:09
PROVIDERS: PCP Family Medicine; Visit Provider Internal Medicine Pulmonary Disease
DX: Z12.2 Encounter for screening for malignant neoplasm of respiratory organs (principal); F17.200 Nicotine dependence, unspecified, uncomplicated
CPT/HCPCS: 71271

== ENCOUNTER → 2023-09-24 10:10 | Outpatient (BNVA) | payer MEDICARE, MEDICAID, SELFPAY | PROVIDERS: PCP Family Medicine; Visit Provider Nurse Practitioner | DX: M25.562 Pain in left knee (principal); S83.412A Sprain of medial collateral ligament of left knee, initial encounter; X50.1XXA Overexertion from prolonged static or awkward postures, initial encounter; Z46.89 Encounter for fitting and adjustment of other specified devices | CPT/HCPCS: 73562; 97760; 99214; L1812 ==

== ENCOUNTER 2023-09-24 11:22 | Outpatient (CLI) | payer MEDICARE, MEDICAID, SELFPAY | END 2023-09-24 11:23 | disposition home or self-care (01) | LOC: SPT 11:23 | PROVIDERS: PCP Family Medicine; Visit Provider Nurse Practitioner | DX: Z46.89 Encounter for fitting and adjustment of other specified devices (principal); M25.562 Pain in left knee | CPT/HCPCS: 97760; 99214; L1812 ==

== ENCOUNTER → 2023-10-17 11:37 | Outpatient (BNVA) | payer MEDICARE, MEDICAID, SELFPAY | PROVIDERS: PCP Family Medicine; Visit Provider Specialist | DX: M16.52 Unilateral post-traumatic osteoarthritis, left hip (principal); M87.052 Idiopathic aseptic necrosis of left femur | CPT/HCPCS: 73502; 99214 ==

== ENCOUNTER → 2023-10-30 14:01 | Outpatient (BNVA) | payer MEDICARE, MEDICAID, SELFPAY | PROVIDERS: PCP Family Medicine; Visit Provider Nurse Practitioner | DX: M17.12 Unilateral primary osteoarthritis, left knee (principal); S83.412A Sprain of medial collateral ligament of left knee, initial encounter; X50.1XXA Overexertion from prolonged static or awkward postures, initial encounter | CPT/HCPCS: 99213 ==

== ENCOUNTER 2023-11-17 11:49 | Outpatient (CLI) | payer MEDICARE, MEDICAID, SELFPAY ==
[2023-11-17 12:35] LABS: Basophils % 0.5 %; Eosinophils # 0.1 10^3/uL (0.0-0.8); Eosinophils % 1.3 %; Hematocrit 36.9 % (36-47); Lymphocytes # 3.5 10^3/uL (0.8-4.8); Lymphocytes % 42.3 %; Mean Corpuscular HGB Conc 32.2 g/dL (30-55); Mean Corpuscular Hemoglobin 29.2 pg (27-33); Mean Corpuscular Volume 90.4 fl (85-98); Mean Platelet Volume 9.1 fL (7.4-10.4); Monocytes # 0.7 10^3/uL (0.2-0.9); Monocytes % 7.9 %; Neutrophils # 3.92 10^3/uL (1.8-7.7); Neutrophils % 47.9 %; Nucleated Red Blood Cells % 0 %; Platelet Count 240 10^3/cmm (157-399); Red Blood Count 4.08 10^6/uL (3.85-5.65); Red Cell Distribution Width 13.9 % (12.1-15.1)
[2023-11-17 12:36] LABS: Add Urine Microscopic? NO; Charge for UA Resulting for Rev
[2023-11-17 12:39] LABS: Bilirubin Urine Neg (Negative); Blood Urine Neg (Negative); Glucose Urine UA Norm (Normal); Ketones Urine Negative (Negative); Leukocyte Esterase Urine Negative (Negative); Nitrate Urine Negative (Negative); Protein Urine Neg (Negative); Specific Gravity, Urine 1.005 (1.005-1.030); Urine Appearance Clear (CLEAR); Urine Color Yellow (Yellow); Urobilinogen Urine Neg (Negative); pH Urine 6.5 (5-7)
[2023-11-17 12:58] LABS: Alanine Aminotransferase 28 U/L (0-33); Alkaline Phosphatase 151 U/L (35-105); Anion Gap 14.8 (5-19); Aspartate Amino Transferase 22 U/L (0-32); Blood Urea Nitrogen 14 mg/dL (6-20); Calcium 9.4 mg/dL (8.5-10.5); Carbon Dioxide 23 mmol/L (22-29); Chloride 106 mmol/L (98-107); Globulin 3.7 g/dL (1.3-4.6); Glomerular Filtration Rate 87.9 mL/min (90-130); Glucose 84 mg/dL (65-115); Osmolality Calculated 290 mOsm/kg (285-295); Potassium 3.8 mmol/L (3.5-5.1); Sodium 140 mmol/L (136-145); Total Bilirubin 0.3 mg/dL (0.15-1.2); Total Protein 7.7 g/dL (6.6-8.7)
[2023-11-17 13:17] LABS: Chol HDL Ratio 3.09 mg/dL (0.0-4.40); Cholesterol 139 mg/dL (0-200); HDL Cholesterol 45 mg/dL (60-100); Iron 50 ug/dL (37-145); LDL Cholesterol Calculated 78 mg/dL (50-129); LDL HDL Ratio 1.73 RATIO (0.00-3.22); Percent Saturation 16.7 % (20-50); Thyroid Stimulating Hormone 2.02 uIU/mL (0.27-4.20); Total Iron Binding Capacity 298 mcg/dl; Triglycerides 79 mg/dL (0-150); Unsaturated Iron Binding 248 ug/dL (112-347); Vitamin B12 1347 pg/mL (232-1245)
== END 2023-11-17 11:50 | disposition home or self-care (01) ==
PROVIDERS: Nurse Practitioner; Absent Provider Family Medicine; PCP Family Medicine; Visit Provider Specialist
DX: E78.2 Mixed hyperlipidemia (principal); I10 Essential (primary) hypertension; I73.9 Peripheral vascular disease, unspecified; I25.10 Atherosclerotic heart disease of native coronary artery without angina pectoris; F17.210 Nicotine dependence, cigarettes, uncomplicated; M25.552 Pain in left hip; M25.551 Pain in right hip; M25.562 Pain in left knee; M25.561 Pain in right knee; E89.0 Postprocedural hypothyroidism; Z95.1 Presence of aortocoronary bypass graft
CPT/HCPCS: 80053; 80061; 81003; 82607; 83540; 83550; 84443; 85025; 99214

== ENCOUNTER → 2023-12-01 14:59 | Outpatient (BNVA) | payer MEDICARE, MEDICAID, SELFPAY | PROVIDERS: PCP Family Medicine; Visit Provider Family Medicine | DX: Z01.818 Encounter for other preprocedural examination (principal); Z79.899 Other long term (current) drug therapy | CPT/HCPCS: 81003 ==

== ENCOUNTER → 2023-12-02 07:11 | Outpatient (BNVA) | payer MEDICARE, MEDICAID, SELFPAY | PROVIDERS: PCP Family Medicine; Visit Provider Family Medicine | DX: Z01.818 Encounter for other preprocedural examination (principal); R82.71 Bacteriuria | CPT/HCPCS: 87086 ==

== ENCOUNTER 2023-12-08 11:57 | Outpatient (CLI) | payer MEDICARE, MEDICAID, SELFPAY ==
--- NOTE | 2023-12-08 11:59 | MM_ITS ---
WS: [id number] BILATERAL 3D TOMOSYNTHESIS DIGITAL SCREENING MAMMOGRAPHY WITH CAD CLINICAL INFORMATION: SCREENING HISTORY: Screening mammogram. No current complaints. COMPARISON: 2012 TECHNIQUE: Bilateral CC and MLO views. FINDINGS: Scattered fibroglandular densities bilaterally. No suspicious focal mass, asymmetry, calcifications, or architectural distortion. No evidence of malignancy. Vascular calcification. IMPRESSION: MM/[place] [id number] BI-RADS: 2-Benign FOLLOW UP: 1 Year Follow-up Recommend return to annual screening mammography.
== END 2023-12-08 11:58 | disposition home or self-care (01) ==
LOC: RAD 11:58
PROVIDERS: PCP Family Medicine; Visit Provider Family Medicine
DX: Z12.31 Encounter for screening mammogram for malignant neoplasm of breast (principal)
CPT/HCPCS: 77063; 77067

== ENCOUNTER 2023-12-09 16:13 | Inpatient (IN) | payer MEDICARE, MEDICAID, SELFPAY ==
[2023-12-09] VITALS (21 sets, daily range): BP systolic 85–134; BP diastolic 53–95; PULSE 84–99; RESP 11–23; TEMP 36.2–36.7; O2SAT 93–99; BMI 22.4; BMI 22.8
[2023-12-09] MEDS: sodium chloride 0.9% 1,000 ML 30 ML IV (11:32)
[2023-12-09] MEDS: CELEcoxib 200 mg Capsule 400 MG PO (11:33)
[2023-12-09] MEDS: acetaminophen 1,000 MG/100 ML PIGGYBACK 400 MG IV ×2 (11:33→18:01)
[2023-12-09] MEDS: gabapentin 300 mg Capsule PO (11:33)
--- NOTE | 2023-12-09 11:41 | P.ANESASSM_ITS ---
Pre-Anesthetic Assessment Height/Weight: Height 1.57 m Temp Pulse Resp BP Pulse Ox O2 Del Method 97.4 F L 99 16 116/65 95 Room Air 12/09/23 11:25 12/09/23 11:25 12/09/23 11:25 12/09/23 11:25 12/09/23 11:25 12/09/23 11:25 Operation Date: 12/09/23 12:25 Proposed Procedures p Hardware Removal Trochanteric Nail Gamma Nail Removal(Left) - Nayana Cerna MD s Hip Arthroplasty Revision Total Hip Arthroplasty Revision/ revision to left total hip arthroplasty with revision components(Left) - Nayana Cerna MD Familial anesthetic complications: NOne Was Beta Milly taken within 24 hours: N/A Was Clonidine taken within 24 hours: N/A Last intake: Intake Last Liquid Date 12/08/23 Last Liquid Time 20:00 Last Solid Date 12/08/23 Last Solid Time 19:00 Social Tobacco (encouraged smoking cessation) and No alcohol Airway Mallampati: Class II Dentition: other (missing) Pulmonary Chronic Obstructive Pulmonary Disease CV/HEM Coronary Artery Disease (stent 7 years ago - negative angiogram since, but difficult study, no complaints of CP, YOUNG, or syncope), Hypertension and Peripheral Vascular Disease Perfusion scan 2020 IMPRESSIONS 1. Small sized perfusion abnormality of mild severity of apical inferior, apical lateral and apical jason. 2. This likely represent attenuation artifact. Old myocardial infarction in left anterior descending artery territory with mild johnnie-infarct ischemia cannot be completely ruled out. 3. Overall left ventricular systolic function is normal without regional wall motion abnormalities. 4. The left ventricular ejection fraction is normal with a value of 64%. 5. EKG portion of the study will be reported separately. stress test 2020 CONCLUSION: 1. No significant EKG changes with the LexiScan infusion. 2. No LexiScan induced chest pain or cardiac arrhythmia. 3. Normal blood pressure and heart rate response. 4. Sestamibi/sestamibi perfusion scan pending; see separate report. GI Gastroesophageal Reflux Disease Metabolic Hyperlipidemia and Thyroid Disease [facility] [place] Anesthetic Plan ASA status: 3 Anesthesia: General Risk of > 500 ml blood loss (7ml/kg in children): Yes, adequate IV access and fluids planned Medications/Allergies Home Medications Medication Instructions Recorded Confirmed Last Taken Type cetirizine 10 mg capsule 10 mg PO DAILY 07/24/20 12/09/23 12/08/23 History clopidogrel 75 mg tablet 75 mg PO DAILY 07/24/20 12/09/23 12/03/23 History montelukast 10 mg tablet 10 mg PO DAILY 07/24/20 12/09/23 12/08/23 History promethazine 25 mg tablet 25 mg PO TID PRN Nausea And 07/24/20 12/09/23 12/08/23 History Vomiting albuterol sulfate 90 mcg/actuation 2 inh inhalation Q4H PRN Shortness 10/10/20 12/09/23 12/07/23 History breath activated powder inhaler Of Breath oxycodone 15 mg tablet 15 mg PO Q4H PRN Pain 10/10/20 12/09/23 12/09/23 History oxycodone myristate 27 mg capsule 27 mg PO BID 10/10/20 12/09/23 12/08/23 History sprinkle extended release 12hr(DON'T CRUSH) (Xtampza ER) guaifenesin 100 mg/5 mL oral 100 mg (5 mL) PO Q4H PRN cough 10/03/21 12/09/23 Unknown Rx liquid (Mucinex Fast-Max Chest #500 mL Congestion) fluticasone fur. 100 mcg-umeclid 1 inh inhalation DAILY #60 ea 02/11/22 12/09/23 12/08/23 Rx 62.5 mcg-vilant 25 mcg inhalat.powder (Trelegy Ellipta) ipratropium 0.5 mg-albuterol 3 mg 3 ml inhalation Q4H PRN wheezing 03/08/22 12/09/23 12/07/23 Rx (2.5 mg base)/3 mL nebulization #90 mL soln levothyroxine 112 mcg capsule 100 mcg PO DAILY 03/08/22 12/09/23 12/08/23 History naloxone 4 mg/actuation nasal 1 ea intranasal PRN PRN overdose 03/11/22 12/09/23 Unknown History spray (Narcan) nitroglycerin 0.4 mg sublingual 0.4 mg sublingual Q5M PRN chest 03/11/2211/20 Unknown Rx tablet pain #25 tabs acapella device #1 ea 06/25/22 12/09/23 Unknown Rx tizanidine 4 mg tablet 4 mg PO TID 03/11/23 12/09/23 12/08/23 History alprazolam 2 mg tablet 2 mg PO DAILY PRN Anxiety 04/29/23 12/09/23 12/07/23 History aspirin 81 mg tablet,delayed 81 mg PO DAILY 04/29/23 12/09/23 12/03/23 History release (Adult Low Dose Aspirin) bupropion HCl 100 mg tablet,12 hr 150 mg PO BID 04/29/23 12/09/23 12/08/23 History sustained-release (Wellbutrin SR) cholecalciferol (vitamin D3) 25 25 mcg PO DAILY 04/29/23 12/09/23 12/07/23 History mcg (1,000 unit) capsule colchicine 0.6 mg tablet (Colcrys) 0.6 mg PO BID 04/29/23 12/09/23 12/08/23 History gabapentin 800 mg tablet 800 mg PO TID 04/29/23 12/09/23 12/08/23 History metoprolol tartrate 25 mg tablet 50 mg PO BID 04/29/23 12/09/23 12/09/23 History mirtazapine 15 mg tablet 7.5 mg PO DAILY 04/29/23 12/09/23 12/08/23 History multivitamin 1 tab PO DAILY 04/29/23 12/09/23 12/08/23 History omeprazole magnesium 20 mg 20 mg PO BID 04/29/23 12/09/23 12/08/23 History capsule,delayed release Hinged Knee Brace #1 ea 09/24/23 12/09/23 Unknown Rx Bedside Commode #1 ea 12/03/23 12/09/23 Unknown Rx cilostazol 100 mg tablet 100 mg PO BID 12/08/23 12/09/23 12/08/23 History simvastatin 40 mg tablet 40 mg PO DAILY 12/08/23 12/09/23 12/08/23 History Allergies Allergy/AdvReac Type Severity Reaction Status Date / Time adhesive Allergy Unknown rash Verified 12/09/23 11:20 amoxicillin Allergy Unknown rash Verified 12/09/23 11:20 aspirin Allergy Unknown Verified 12/09/23 11:20 hydroxyzine Allergy rash Verified 12/09/23 11:20 morphine Allergy Unknown Verified 12/09/23 11:20 nicotine [From Nicotrol] Allergy Unknown Verified 12/09/23 11:20 nitrofurantoin Allergy ALGY-Wheezi Verified 12/09/23 11:20 [From Macrobid] ng petrolatum,white Allergy rash Verified 12/09/23 11:20 [From Vaseline] vancomycin Allergy rash Verified 12/09/23 11:20 Current Medications Generic Name Dose Route Start Last Admin Trade Name Freq PRN Reason Stop Dose Admin Sodium Chloride 1,000 mls @ 30 mls/hr 12/09/23 11:30 12/09/23 11:32 Sodium Chloride 0.9% IV 12/10/23 11:29 30 mls/hr .Q24H YONI Administration PFSH Anesthesia Medical History Primary osteoarthritis of left knee Injury caused by twisting MCL sprain of left knee Left anterior knee pain Osteoarthritis of left hip Seizure disorder GERD (gastroesophageal reflux disease) Hypothyroidism HTN (hypertension) Peripheral arterial disease History of femoral angiogram CAD (coronary artery disease) Throat cancer Surgical History H/O tubal ligation Family History Mother Osteoarthritis Sister Thyroid disease Social History Smoking and tobacco/nicotine status: current every day tobacco/nicotine user (0.5 ppd) cigarettes Packs smoked per day: 0.5 Years cigarettes smoked: 37 Quit status (tobacco/nicotine): considering quitting Second hand smoke exposure: Yes Alcohol intake: current Alcohol intake frequency: few times a week Substance/Drug Use: never Caregiver/support person: Yes Lives independently: Yes Household members: none Housing: Manufactured/Mobile home Marital status: / Current occupational status: disabled Pets and animals: Yes Do you think of yourself as: Straight/Heterosexual Current gender identity: Female Agree to transfusion: No Data Anesthesia Cardiac Studies: Sestamibi Stress Test (Cardiology) 08/21
--- NOTE | 2023-12-09 12:09 | W.PM.OPSUD ---
Surgery/Procedure H&P Update DATE OF PROCEDURE: December 09, 2023 DATE H&P PERFORMED: 11/25/23 H&P UPDATE INFORMATION: I have reviewed H&P completed within last 30 days, I have examined patient prior to procedure, No changes to prior documentation and H&P is in [facility] date indicated PLANNED PROCEDURE: Operation Date: 12/09/23 12:25 Proposed Procedures p Hardware Removal Trochanteric Nail Gamma Nail Removal(Left) - Nayana Cerna MD s Hip Arthroplasty Revision Total Hip Arthroplasty Revision/ revision to left total hip arthroplasty with revision components(Left) - Nayana Cerna MD Related Problem List Diagnoses (1) Avascular necrosis of bone of left hip: (2) Retained orthopedic hardware: Gamma nail.
[2023-12-09] MEDS: ceFAZolin 2,000 MG in sodium chloride 0.9% (plus) 50 ML 100 MG IV ×2 (13:03→20:12)
[2023-12-09] MEDS: ceFAZolin 1,000 mg SDV 1000 MG IRRIGATION (13:58)
[2023-12-09] MEDS: tranexamic acid 1,000 mg/10mL SDV 1000 MG IV (14:01)
--- NOTE | 2023-12-09 15:58 | P.OP_ITS ---
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 Post-op diagnosis: Avascular necrosis left femoral head with painful retained hardware Contracted adductor tendon Post-op findings: Avascular necrosis left femoral head with collapsed femoral head and normal- appearing acetabular cartilage Contracted adductor tendon Procedure done: Left hip arthroplasty with revision components following removal of gamma 3 nail, long, and with supplemental adductor tenotomy Implants: The Tres total hip system with the nondenominational modular hip system with a size 155 stem by 16 mm diameter, a 21 mm proximal cone with +0 and V40, a size 43 mm outer diameter by 26 mm inner diameter universal head bipolar component and a 26 mm +0 chrome cobalt femoral head Specimens removed/disposition: Femoral head, disposed of Pathology: None Surgeon: Nayana Cerna MD Recreation Therapy Aides Teacher: Miranda Green, nurse practitioner, who services were required for positioning, exposure, manipulation, retraction, and closure Anesthesia: General (Intubated, ASA 3) Estimated blood loss (mL): 130 IV fluids (mL): 1,500 Urine output (mL): 150 Complications: None Findings: Pristine appearing acetabular cartilage with avascular necrosis and deformity of the femoral head Condition: stable Disposition: PACU (Then to floor for postoperative rehabilitation and pain management) Brief History: This 52-year-old woman presents today with complaints of severe left hip pain. She previously had an intertrochanteric fracture in 2019 which underwent open reduction internal fixation with a long trochanteric nail by Dr. Hatch. The pain had been in her left hip since the time of her surgery. She was seen in my office and had difficulty standing and walking secondary to the pain. Previously, she had discussed left total hip arthroplasty with Dr. Hatch, and was interested in pursuing this route. At the time she was seen in the office, she was having significant issues with activities of daily living. She wished to proceed with removal of hardware and revision hip arthroplasty. In the office, consents were signed and questions were answered. Procedure: This 52-year-old woman was brought to the operating theater. She was transferred to the operating room table and administered a general anesthesia, intubated, ASA 3. Following induction of adequate anesthesia, the patient was placed in a full lateral position and held in place with a pegboard. The patient's left lower extremity was then prepped and draped in the usual fashion utilizing DuraPrep.? It was draped free. Following prepping and draping, a surgical pause was performed.? At the time of surgical pause, we identified the site and side of surgery.? We also identified the patient and preoperative surgical markings.?Confirmation was made of equipment availability.? Additionally, the patient's preoperative IV antibiotic, Ancef 2 g, and TXA administration was confirmed as well.? X-rays were also reviewed. Following the surgical pause, attention was directed to the site of the palpable distal screw in the gamma nail. Previous incision had been marked while the patient was in the preoperative holding area. This was entered after prepping and draping. Was able to place a screwdriver into the screw and the screw was r emoved uneventfully. Following removal of the distal screw, the stockinette was extended above the knee and wrapped in place as for routine hip arthroplasty. At that point, incision was made in a posterior lateral fashion. The patient's previous incisions including placement of the long gamma nail and the incision for the lag screw were incorporated into the current incision. Initially, attention was directed to the gamma nail. We remove the setscrew from the proximal aspect of the nail. We then removed the lag screw uneventfully under direct visualization. Once the lag screw had been removed, the jig system was placed onto the proximal aspect of the nail under direct visualization, and the nail was removed uneventfully. At this point, attention was directed then to the revision hip arthroplasty portion of the surgical procedure. Hemostasis was obtained using electrocautery. The tensor fascia aleah was identified and incised longitudinally.? Sciatic nerve was identified and protected throughout the surgical procedure.? A Charnley U retractor was placed after the tensor fascia aleah had been incised longitudinally, and the sciatic nerve had been identified.? The hip was inte rnally rotated, and the piriformis muscle was identified and tagged. Piriformis muscle along with the remaining short external rotators were then incised from the posterior aspect of the hip joint.? These were retracted posteriorly.? The capsule was entered in a T-type fashion with the edges being tagged, and subsequently the hip was dislocated.? The labrum was excised with further excision accomplished once the femoral head was removed.? Following hip dislocation, a femoral neck osteotomy was accomplished in the appropriate position.? The head was measured, but it was quite deformed.? We then evaluated the acetabulum. Cartilage in the acetabulum was noted to be pristine, and given the patient's age, the decision was made to place a universal bipolar head component rather than reaming the acetabulum and placing a total hip acetabular component. Trials were accomplished from the bipolar set. The universal head component chosen was a 43 mm outer diameter. The acetabulum was noted to be quite shallow, but it was felt that given her age, reaming of the acetabulum is not appropriate nor was total hip arthroplasty. Therefore we elected to proceed with the bipolar component. Plans were still made for the nondenominational modular hip stem as this was felt to bypass concerns from the patient's previous gamma nail in the potential for fracture following its removal from the trochanter and also removal of the lag screw. Attention was directed to the proximal femur.? The proximal femur was lifted out of the wound.? A canal finder was passed after the box chisel.? The reamer was used to lateralize.? Sequential reamers were then placed into the femur with some difficulty. There was noted to be a block at the area of the patient's previous lag screw but we were able to perforate this block and placed the reamers sequentially. We reamed with a size 16 reamer, and therefore, the stem chosen was a 155 mm x 16 mm stem. This was impacted into the wound and was felt to be solid. Following this, reaming was accomplished proximally to ream for the proximal cone. We reamed to a size 21 [address] to [address] a +0. A trial was accomplished with a 21 mm cone, +0, and femoral heads were trialed including the 43 and 44 at both a +0 and +4 mm offset. The +4 mm offset was noted to be very tight. Even with a +0 offset, there was noted to be tightness to the adductor tendon which precluded the patient from being able to adductor the leg. Additionally, the flexor tendons were noted to be quite tight. Stability was noted to be acceptable but marginal secondary to the shallowness of the patient's acetabulum, but again, it was felt that it would be more stable following the adductor tenotomy. Leg lengths were felt to be appropriately restored with this construct. We did have stability with 90 degrees of flexion and 80 degrees of internal rotation. We were also able to accomplish 20 degrees of adduction. Therefore, trial components were removed after the hip was dislocated.? The 21 mm +0 cone was impacted into position and screw was placed to tighten these 2 components together. Following this, we placed a +0 mm x 26 mm femoral head into the 43 mm outer diameter bipolar head component and impacted this into position. The hip was reduced and placed through range of motion. At that time, attention was directed to closure. Closure was accomplished with 0 Vicryl in the capsular tissues.? Piriformis was reattached with 0 Vicryl as well.? Tensor fascia aleah was closed with 0 Vicryl in an interrupted fashion.? The subcutaneous tissues were closed with combi nation of 0 Vicryl and 2-0 Monocryl.? Gelfoam thrombin mixture was placed into the wound as well.? The skin was closed with a running 3-0 Monocryl followed by Dermabond Prineo and Silverlon. The distal dressing was also covered with a Silverlon dressing. The patient was placed in an abduction pillow.? Patient was transferred to her bed where she was placed in a supine position while in the abduction pillow. The left leg was removed from the abduction pillow. The groin was prepped with Betadine, and an adductor tenotomy was accomplished with a 12 blade. This was an open adductor tenotomy. This gave much better range of motion of the hip, and a dressing was placed and the patient was placed back into the abductor pillow. Patient was then transferred to the PACU in satisfactory condition. She will be discharged to the floor for postoperative rehabilitation and pain management. There were no complications and no specimens. Related Problem List Diagnoses (1) Avascular necrosis of bone of left hip: (2) Retained orthopedic hardware:
[2023-12-09] MEDS: fentaNYL 50 mcg/mL INJ 2mL IVP (16:45)
--- NOTE | 2023-12-09 16:46 | XRR_ITS ---
PROCEDURE INFORMATION: Exam: XR Pelvis Exam date and time: 12/09/2023 3:50 PM Age: 52 years old Clinical indication: Device placement; Other: Surinder; Prior surgery; Surgery date: Post-operative (0-2 days); Additional info: S/P surinder, low ap pelvis TECHNIQUE: Imaging protocol: Radiologic exam of the pelvis. Views: 1 or 2 view. COMPARISON: CR XR hip LT 2-3V wo/w pel* [id number] 10/17/2023 11:38 AM FINDINGS: Bones/joints: A left hip prosthesis is well seated and well aligned. Soft tissues: Unremarkable. XR/XR pelvis 1-2V* [id number] IMPRESSION: Intact hip prosthesis
--- NOTE | 2023-12-09 16:50 | XRR_ITS ---
PROCEDURE INFORMATION: Exam: XR Left Femur Exam date and time: 12/09/2023 3:52 PM Age: 52 years old Clinical indication: Device placement; Joint replacement hardware; Prior surgery; Surgery date: Post-operative (0-2 days); Surgery type: Lt femoral nail; Additional info: Status post revision hip arthroplasty TECHNIQUE: Imaging protocol: Radiologic exam of the left femur. Views: 2 views. COMPARISON: CT angio abd aorta runof [id number] 03/05/2021 8:29 AM FINDINGS: Bones/joints: A left hip prosthesis is well seated and well aligned. Soft tissues: Unremarkable. XR/XR femur LT min 2V* [id number] IMPRESSION: Intact prosthesis
--- NOTE | 2023-12-09 17:05 | ANE.PACU2 ---
Inpatient post-anesthesia follow up: Airway intact: Yes Vital signs: Temperature 98.1 F Pulse Rate 100 Respiratory Rate 18 Blood Pressure 112/65 Pulse Oximetry 95 Oxygen Delivery Me thod Room Air Oxygen Flow Rate Fraction of Inspir ed Oxygen Hydration adequate: Yes Nausea and vomiting: No Pain level: 1 Mental status: Baseline
--- NOTE | 2023-12-09 17:18 | P.CONIM_ITS ---
Providers/Reason For Consult 2 Consulting Physician/Specialty*: Dr. Heath/internal medicine Reason for Consult*: Medical comorbidities Attending Physician: Nayana Cerna MD Primary Care Provider: Rose Beaver DO History of Present Illness History of Present Illness Amanda Hernandez is a 52 year old female with past medical history of severe peripheral vascular disease with obstructive distal aortic lesion, s/p aortobifemoral bypass in June 2022, lower extremity blood supply through collaterals, chronic active tobacco abuse, COPD, alcohol abuse, diffuse B-cell lymphoma on treatment with Dr. Lauren, positive stress test in April 2018 followed by a coronary angiogram which was suboptimal because of coronary and radial spasm though was thought to nonsignificant obstructive CAD who follows up with cardiology team as an outpatient who underwent left hip arthroplasty with revision components for avascular necrosis of the left femoral head with painful retained hardware. Hospital service was consulted for medical comorbidities. Patient's OR was unremarkable as per the report and had an external blood loss of 130 cc. Patient states she does not consume alcohol anymore and last drink was more than a year ago, smokes around a pack which lasts for 3 days. Currently denies any nausea vomiting, headache, chest pains. Review of Systems 2 General: Reports: 10 or more systems reviewed and unremarkable except in HPI and below Const: Denies: fever(s), chills, body aches, change in appetite, change in weight, malaise, night sweats, diaphoresis, change in sleep pattern, daytime sleepiness or snoring Eyes: Denies: change in vision, blurry vision, photophobia, eye discomfort or eye discharge ENMT: Denies: throat pain, enlarged tonsils, hoarseness, mouth pain, oral sores, dry mouth, tinnitus, nasal congestion or post nasal drip Card: Denies: chest pain, palpitations, irregular heart rhythm, edema, swelling of feet/ankles, lightheadedness, syncope, pre-syncope, dyspnea on exertion, orthopnea, leg pain with exertion or acrocyanosis Resp: Denies: dyspnea, productive cough, non-productive cough, wheezing, stridor, pain on inspiration, change in phlegm color, hemoptysis or chest congestion GI: Denies: abdominal pain, nausea, vomiting, hematemesis, coffee ground emesis, dysphagia, heartburn, diarrhea, constipation, bloating, GI cramping, change in bowel habits, pain on defecation, hematochezia or melena : Denies: flank pain, dysuria, urinary frequency, urinary urgency, urinary hesitancy, nocturia or hematuria Musc: Denies: neck pain, back pain, extremity pain, joint pain, joint swelling, joint redness, joint stiffness or limited range of motion Neuro: Denies: headache(s), numbness in extremities, weakness in extremities, sensory changes, lack of coordination, difficulty walking, frequent falls, dizziness, vertigo, confusion, Slurred speech present, difficulty communicating thoughts or seizure-like activity Psych: Denies: anxiety, depression, mood swings, panic attacks, hopelessness or irritability Endo: Denies: polyuria, polydipsia, tired all the time, cold intolerance, excessive sweating, flushing or heat intolerance Claude/Lymph: Denies: easy bruising or easy bleeding All/Imm: Denies: tongue swelling, facial swelling or acute wheezing Medications/Allergies Home Medications Medication Instructions Recorded Confirmed Last Taken Type cetirizine 10 mg capsule 10 mg PO DAILY 07/24/20 12/09/23 12/08/23 History clopidogrel 75 mg tablet 75 mg PO DAILY 07/24/20 12/09/23 12/03/23 History montelukast 10 mg tablet 10 mg PO DAILY 07/24/20 12/09/23 12/08/23 History promethazine 25 mg tablet 25 mg PO TID PRN Nausea And 07/24/20 12/09/23 12/08/23 History Vomiting albuterol sulfate 90 mcg/actuation 2 inh inhalation Q4H PRN Shortness 10/10/20 12/09/23 12/07/23 History breath activated powder inhaler Of Breath oxycodone 15 mg tablet 15 mg PO Q4H PRN Pain 10/10/20 12/09/23 12/09/23 History oxycodone myristate 27 mg capsule 27 mg PO BID 10/10/20 12/09/23 12/08/23 History sprinkle extended release 12hr(DON'T CRUSH) (Xtampza ER) guaifenesin 100 mg/5 mL oral 100 mg (5 mL) PO Q4H PRN cough 10/03/21 12/09/23 Unknown Rx liquid (Mucinex Fast-Max Chest #500 mL Congestion) fluticasone fur. 100 mcg-umeclid 1 inh inhalation DAILY #60 ea 02/11/22 12/09/23 12/08/23 Rx 62.5 mcg-vilant 25 mcg inhalat.powder (Trelegy Ellipta) ipratropium 0.5 mg-albuterol 3 mg 3 ml inhalation Q4H PRN wheezing 03/08/22 12/09/23 12/07/23 Rx (2.5 mg base)/3 mL nebulization #90 mL soln levothyroxine 112 mcg capsule 100 mcg PO DAILY 03/08/22 12/09/23 12/08/23 History naloxone 4 mg/actuation nasal 1 ea intranasal PRN PRN overdose 03/11/22 12/09/23 Unknown History spray (Narcan) nitroglycerin 0.4 mg sublingual 0.4 mg sublingual Q5M PRN chest 03/11/22 12/09/23 Unknown Rx tablet pain #25 tabs acapella device #1 ea 06/25/22 12/09/23 Unknown Rx tizanidine 4 mg tablet 4 mg PO TID 03/11/23 12/09/23 12/08/23 History alprazolam 2 mg tablet 2 mg PO DAILY PRN Anxiety 04/29/23 12/09/23 12/07/23 History aspirin 81 mg tablet,delayed 81 mg PO DAILY 04/29/23 12/09/23 12/03/23 History release (Adult Low Dose Aspirin) bupropion HCl 100 mg tablet,12 hr 150 mg PO BID 04/29/23 12/09/23 12/08/23 History sustained-release (Wellbutrin SR) cholecalciferol (vitamin D3) 25 25 mcg PO DAILY 04/29/23 12/09/23 12/07/23 History mcg (1,000 unit) capsule colchicine 0.6 mg tablet (Colcrys) 0.6 mg PO BID 04/29/23 12/09/23 12/08/23 History gabapentin 800 mg tablet 800 mg PO TID 04/29/23 12/09/23 12/08/23 History metoprolol tartrate 25 mg tablet 50 mg PO BID 04/29/23 12/09/23 12/09/23 History mirtazapine 15 mg tablet 7.5 mg PO DAILY 04/29/23 12/09/23 12/08/23 History multivitamin 1 tab PO DAILY 04/29/23 12/09/23 12/08/23 History omeprazole magnesium 20 mg 20 mg PO BID 04/29/23 12/09/23 12/08/23 History capsule,delayed release Hinged Knee Brace #1 ea 09/24/23 12/09/23 Unknown Rx Bedside Commode #1 ea 12/03/23 12/09/23 Unknown Rx cilostazol 100 mg tablet 100 mg PO BID 12/08/23 12/09/23 12/08/23 History simvastatin 40 mg tablet 40 mg PO DAILY 12/08/23 12/09/23 12/08/23 History Allergies Allergy/AdvReac Type Severity Reaction Status Date / Time adhesive Allergy Unknown rash Verified 12/09/23 11:20 amoxicillin Allergy Unknown rash Verified 12/09/23 11:20 aspirin Allergy Unknown Verified 12/09/23 11:20 hydroxyzine Allergy rash Verified 12/09/23 11:20 morphine Allergy Unknown Verified 12/09/23 11:20 nicotine [From Nicotrol] Allergy Unknown Verified 12/09/23 11:20 nitrofurantoin Allergy ALGY-Wheezi Verified 12/09/23 11:20 [From Macrobid] ng petrolatum,white Allergy rash Verified 12/09/23 11:20 [From Vaseline] vancomycin Allergy rash Verified 12/09/23 11:20 PFSH Acute 2 PFSH: Medical History (Updated 12/09/23 @ 17:26 by Terrence Heath MD) Pulmonary artery abnormality Primary osteoarthritis of left knee Injury caused by twisting MCL sprain of left knee Left anterior knee pain Osteoarthritis of left hip Seizure disorder GERD (gastroesophageal reflux disease) Hypothyroidism HTN (hypertension) Peripheral arterial disease History of femoral angiogram CAD (coronary artery disease) Throat cancer Surgical History (Updated 12/09/23 @ 17:26 by Terrence Heath MD) S/P aortobifemoral bypass surgery History of hip surgery H/O tubal ligation Family History Mother Osteoarthritis Sister Thyroid disease Social History Smoking and tobacco/nicotine status: current every day tobacco/nicotine user (0.5 ppd) cigarettes Packs smoked per day: 0.5 Years cigarettes smoked: 37 Quit status (tobacco/nicotine): considering quitting Second hand smoke exposure: Yes Alcohol intake: current Alcohol intake frequency: few times a week Substance/Drug Use: never Caregiver/support person: Yes Lives independently: Yes Household members: none Housing: Manufactured/Mobile home Marital status: / Current occupational status: disabled Pets and animals: Yes Do you think of yourself as: Straight/Heterosexual Current gender identity: Female Agree to transfusion: No Vitals/I&O/Wt Last Vital Signs Temp 97.2 F L 12/09/23 16:26 Pulse 86 12/09/23 17:06 Resp 18 12/09/23 17:06 BP 118/95 12/09/23 17:06 Pulse Ox 96 12/09/23 17:06 O2 Del Method Room Air 12/09/23 17:06 12/09/23 12/09/23 12/09/23 06:59 14:59 22:59 Intake Total 1150 / 1150 550 / 1700 Output Total 430 / 430 Balance 1150 / 1150 120 / 1270 Weight last 48 hrs Weight 55.792 kg Physical Exam 2 Narrative: General: No acute distress, AO x3,drowsy post operative, saturating well on room air HEENT: PERRLA, pupils bilaterally equal and reactive Chest: Normal vesicular breath sounds, no added sounds, equal good air entry bilaterally CVS: S1-S2 regular, no murmurs, no tachycardia, no gallops, no rubs Abdomen: Soft, nontender, no organomegaly, bowel sounds present Neuro: No focal deficits, no facial deformity, AO x3, power 5/5 in all limbs Urinary Catheter Management: Bullard: Cath Placed During This Visit: yes Urinary Catheter Date of Insertion: 12/09/23 Urinary Catheter Time of Insertion: 13:20 Data 12/10/23 05:29 12/10/23 05:29 A&P Assessment and plan (1) Encounter for postoperative care: Post left hip arthroplasty. Monitor hemoglobin. Check CBC, CMP. Monitor blood pressure. Normal saline at 50 cc/h. Physical therapy, weightbearing status, perioperative antibiotics, anticoagulation, diet advancement, pain medication as per primary team. Patient already takes gabapentin 800 mg 3 times daily, oxycodone 15 mg every 4 hours as needed, oxycodone sprinkles 27 mg twice daily at home. For now he will be safe to continue these medications to avoid withdrawal symptoms. Narcan as needed. (2) S/P total left hip arthroplasty: (3) Peripheral arterial disease: Significant past medical history with aortobifemoral bypass. Continue with home dose of aspirin, statin, cilostazol. (4) CAD (coronary artery disease): Qualifiers: Associated angina: without angina Coronary Disease-Associated Artery/Lesion type: [place] artery Hypothyroidism type: unspecified [place] vs. transplanted heart: [place] heart Qualified Code(s): I25.10 - Atherosclerotic heart disease of [place] coronary artery without angina pectoris (5) HTN (hypertension): Goal blood pressure less than 140/90 mmHg. Blood pressure stable. Continue with home dose of metoprolol 50 mg twice daily for now. Qualifiers: Hypertension type: primary hypertension Qualified Code(s): I10 - Essential (primary) hypertension Plan History of alcohol abuse: [facility] protocol History of chronic tobacco use: Nicotine patch as needed. Remove Bullard as early as possible. Full code Liquid diet, advance as per primary team Protonix for PUD prophylaxis Anticoagulation as per primary team Thank you for involving us in care of Ms. Hernandez. Please call back with any questions. Consult Attestations 2 Medical Necessity Statement: As per primary team. Diagnoses Encounter for postoperative care Z48.89 S/P total left hip arthroplasty Z96.642 Peripheral arterial disease I73.9 Coronary artery disease involving [place] coronary artery of [place] heart without angina pectoris I25.10 Associated angina: without angina Coronary Disease-Associated Artery/Lesion type: [place] artery Hypothyroidism type: unspecified [place] vs. transplanted heart: [place] heart Primary hypertension I10 Hypertension type: primary hypertension
[2023-12-09] MEDS: oxyCODONE 5 mg IR Tab/Cap 15 MG PO ×2 (17:31→21:29)
[2023-12-09] MEDS: mupirocin oint 22 gm 1 APPLIC NASAL (17:44)
[2023-12-09] MEDS: buPROPion SR (12 HR) 100 mg Tablet 150 MG PO (17:44)
[2023-12-09] MEDS: cilostazol 100 mg Tablet PO (17:45)
[2023-12-09] MEDS: iron polysaccharide complex 150 mg Capsule PO (17:45)
[2023-12-09] MEDS: colchicine 0.6 mg Tablet 0.599999999999999978 MG PO (17:45)
[2023-12-09] MEDS: metoprolol tartrate 25 mg Tablet 50 MG PO (17:45)
[2023-12-09] MEDS: pantoprazole DR 40 mg Tablet PO (17:45)
[2023-12-09] MEDS: sennosides-docusate Tablet 2 TAB PO (17:45)
[2023-12-09] MEDS: chlorhexidine gluconate 0.12% Btl 473 mL 30 ML MUCOUS MEM ×2 (17:46→20:11)
[2023-12-09 18:28] LABS: Alanine Aminotransferase 16 U/L (0-33); Albumin Level 3.1 g/dL (3.5-5.2); Alkaline Phosphatase 105 U/L (35-105); Anion Gap 14.9 (5-19); Aspartate Amino Transferase 18 U/L (0-32); Blood Urea Nitrogen 12 mg/dL (6-20); Calcium 8.1 mg/dL (8.5-10.5); Carbon Dioxide 20 mmol/L (22-29); Chloride 108 mmol/L (98-107); Creatinine Clr Calc Pharmacy 91.3176; Globulin 3.3 g/dL (1.3-4.6); Glucose 120 mg/dL (65-115); Osmolality Calculated 289 mOsm/kg (285-295); Potassium 3.9 mmol/L (3.5-5.1); Sodium 139 mmol/L (136-145); Total Bilirubin 0.3 mg/dL (0.15-1.2); Total Protein 6.4 g/dL (6.6-8.7)
[2023-12-09 19:06] LABS: Basophils % 0.3 %; Hematocrit 29.1 % (36-47); Lymphocytes # 1.6 10^3/uL (0.8-4.8); Lymphocytes % 13.4 %; Mean Corpuscular Volume 90.7 fl (85-98); Mean Platelet Volume 8.9 fL (7.4-10.4); Monocytes # 0.5 10^3/uL (0.2-0.9); Monocytes % 4.6 %; Neutrophils # 9.51 10^3/uL (1.8-7.7); Neutrophils % 81.4 %; Nucleated Red Blood Cells % 0 %; Platelet Count 217 10^3/cmm (157-399); Red Blood Count 3.21 10^6/uL (3.85-5.65); White Blood Count 11.68 10^3/uL (3.29-11.43)
[2023-12-09] MEDS: tizanidine 4 mg Tablet PO (20:12)
[2023-12-09] MEDS: gabapentin 400 mg Capsule 800 MG PO (20:12)
[2023-12-09] MEDS: budesonide 0.5 mg/2 mL Neb INHALATION (20:49)
[2023-12-09] MEDS: ipratropium-albuterol 3 mL Neb INHALATION (20:49)
[2023-12-09] MEDS: tranexamic acid 1,000 MG/100 ML PREMIX 600 MG IV (21:29)
[2023-12-10] VITALS (9 sets, daily range): BP systolic 93–112; BP diastolic 54–65; PULSE 84–106; RESP 16–18; TEMP 36.4–36.7; O2SAT 94–98; BMI 22.4
[2023-12-10] MEDS: acetaminophen 1,000 MG/100 ML PIGGYBACK 400 MG IV ×2 (02:39→11:33)
[2023-12-10] MEDS: ceFAZolin 2,000 MG in sodium chloride 0.9% (plus) 50 ML 100 MG IV ×2 (05:06→12:57)
[2023-12-10] MEDS: oxyCODONE 5 mg IR Tab/Cap 15 MG PO ×3 (06:01→15:54)
[2023-12-10 06:15] LABS: Basophils % 0.2 %; Hematocrit 26.8 % (36-47); Lymphocytes # 3.2 10^3/uL (0.8-4.8); Lymphocytes % 24.9 %; Mean Corpuscular Volume 90.5 fl (85-98); Mean Platelet Volume 9.1 fL (7.4-10.4); Monocytes # 1.3 10^3/uL (0.2-0.9); Monocytes % 10.3 %; Neutrophils # 8.16 10^3/uL (1.8-7.7); Neutrophils % 64.3 %; Nucleated Red Blood Cells % 0 %; Platelet Count 233 10^3/cmm (157-399); Red Blood Count 2.96 10^6/uL (3.85-5.65); Red Cell Distribution Width 14.4 % (12.1-15.1)
[2023-12-10 06:43] LABS: Alanine Aminotransferase 15 U/L (0-33); Albumin Level 3.1 g/dL (3.5-5.2); Alkaline Phosphatase 98 U/L (35-105); Anion Gap 11.8 (5-19); Aspartate Amino Transferase 21 U/L (0-32); Blood Urea Nitrogen 10 mg/dL (6-20); Calcium 8.8 mg/dL (8.5-10.5); Carbon Dioxide 22 mmol/L (22-29); Chloride 109 mmol/L (98-107); Creatinine Clr Calc Pharmacy 90.6895; Globulin 3.2 g/dL (1.3-4.6); Glucose 101 mg/dL (65-115); Osmolality Calculated 287 mOsm/kg (285-295); Potassium 3.8 mmol/L (3.5-5.1); Sodium 139 mmol/L (136-145); Total Bilirubin 0.2 mg/dL (0.15-1.2); Total Protein 6.3 g/dL (6.6-8.7)
[2023-12-10] MEDS: colchicine 0.6 mg Tablet 0.599999999999999978 MG PO (08:29)
[2023-12-10] MEDS: buPROPion SR (12 HR) 100 mg Tablet 150 MG PO (08:29)
[2023-12-10] MEDS: atorvastatin 40 mg Tablet 20 MG PO (08:29)
[2023-12-10] MEDS: gabapentin 400 mg Capsule 800 MG PO (08:30)
[2023-12-10] MEDS: metoprolol tartrate 25 mg Tablet 50 MG PO (08:30)
[2023-12-10] MEDS: cetirizine 10 mg Tablet PO (08:30)
[2023-12-10] MEDS: clopidogrel 75 mg Tablet PO (08:31)
[2023-12-10] MEDS: levothyroxine 100 mcg Tablet PO (08:31)
[2023-12-10] MEDS: mirtazapine 15 mg Tablet 7.5 MG PO (08:31)
[2023-12-10] MEDS: folic acid 1 mg Tablet PO (08:31)
[2023-12-10] MEDS: montelukast sodium 10 mg Tablet PO (08:31)
[2023-12-10] MEDS: aspirin 81 mg EC Tablet PO (08:31)
[2023-12-10] MEDS: tizanidine 4 mg Tablet PO (08:31)
[2023-12-10] MEDS: iron polysaccharide complex 150 mg Capsule PO (08:31)
[2023-12-10] MEDS: multivitamin therapeutic Tablet 1 TAB PO (08:31)
[2023-12-10] MEDS: cilostazol 100 mg Tablet PO (08:31)
[2023-12-10] MEDS: thiamine 100 mg Tablet PO (08:32)
[2023-12-10] MEDS: chlorhexidine gluconate 0.12% Btl 473 mL 30 ML MUCOUS MEM ×2 (08:32→12:57)
[2023-12-10] MEDS: sennosides-docusate Tablet 2 TAB PO (08:32)
[2023-12-10] MEDS: pantoprazole DR 40 mg Tablet PO (08:32)
[2023-12-10] MEDS: mupirocin oint 22 gm 1 APPLIC NASAL (08:33)
[2023-12-10] MEDS: ipratropium-albuterol 3 mL Neb INHALATION ×2 (08:35→11:40)
[2023-12-10] MEDS: budesonide 0.5 mg/2 mL Neb INHALATION (08:36)
[2023-12-10 09:40] LABS: Add Urine Microscopic? NO; Charge for UA Resulting for Rev
[2023-12-10] MEDS: sodium chloride 0.9% 250 ML IV (09:42)
[2023-12-10 10:07] LABS: Urine Appearance Clear (CLEAR); Urine Color Straw (Yellow)
[2023-12-10 10:08] LABS: Bilirubin Urine Neg (Negative); Blood Urine Neg (Negative); Glucose Urine UA Norm (Normal); Ketones Urine Negative (Negative); Leukocyte Esterase Urine Negative (Negative); Nitrate Urine Negative (Negative); Protein Urine Neg (Negative); Urobilinogen Urine Norm (Negative); pH Urine 7 (5-7)
--- NOTE | 2023-12-10 12:50 | P.PN_ITS ---
Subjective 2 Subjective: No acute vents overnight. Denies any nausea, vomiting, chest pain, headache. Worked with physical therapy. Denies any new complaints. Has remained hemodynamically stable and afebrile than slight soft blood pressure earlier today morning. Vitals/I&O/Wt Last Vital Signs Temp 98.1 F 12/10/23 08:00 Pulse 100 12/10/23 11:42 Resp 18 12/10/23 11:42 BP 112/65 12/10/23 08:00 Pulse Ox 95 12/10/23 11:42 O2 Del Method Room Air 12/10/23 11:42 12/09/23 12/10/23 12/10/23 22:59 06:59 14:59 Intake Total 1280 / 2430 830 / 3260 310 / 310 Output Total 430 / 430 800 / 1230 Balance 850 / 2000 2029 310 / 310 Weight last 48 hrs Weight 55.792 kg Weight 56.699 kg Weight 55.792 kg Physical Exam 2 Narrative: General: No acute distress, AO x3, on room air HEENT: PERRLA, pupils bilaterally equal and reactive Chest: Normal vesicular breath sounds, no added sounds, equal good air entry bilaterally CVS: S1-S2 regular, no murmurs, no tachycardia, no gallops, no rubs Abdomen: Soft, nontender, no organomegaly, bowel sounds present Neuro: No focal deficits, no facial deformity, AO x3, power 5/5 in all limbs Urinary Catheter Management: Bullard: Cath Placed During This Visit: yes, but has since been removed by the nurse Reason for Continuing Indwelling Catheter: Perioperative Use in Selected Surgeries Urinary Catheter Date of Insertion: 12/09/23 Urinary Catheter Time of Insertion: 13:20 Date Urinary Catheter Removed: 12/10/23 Time Urinary Catheter Discontinued: 05:19 Data 12/10/23 05:29 12/10/23 05:29 A&P Assessment and plan (1) Encounter for postoperative care: Post left hip arthroplasty. Monitor hemoglobin. Patient tolerating oral diet well. Stop IV fluids after 250 cc bolus. Hemoglobin slightly low today most likely postoperative. Repeat hemoglobin in next 24 hours. Physical therapy, weightbearing status, perioperative antibiotics, anticoagulation, pain medication as per primary team. Patient already takes gabapentin 800 mg 3 times daily, oxycodone 15 mg every 4 hours as needed, oxycodone sprinkles 27 mg twice daily at home. For now he will be safe to continue these medications to avoid withdrawal symptoms. Narcan as needed. (2) S/P total left hip arthroplasty: (3) Peripheral arterial disease: Significant past medical history with aortobifemoral bypass. Continue with home dose of aspirin, statin, cilostazol. (4) CAD (coronary artery disease): Qualifiers: Hypothyroidism type: unspecified Coronary Disease-Associated Artery/Lesion type: [place] artery [place] vs. transplanted heart: [place] heart Associated angina: without angina Qualified Code(s): I25.10 - Atherosclerotic heart disease of [place] coronary artery without angina pectoris (5) HTN (hypertension): Goal blood pressure less than 140/90 mmHg. Blood pressure stable. Continue with home dose of metoprolol 50 mg twice daily for now. Qualifiers: Hypertension type: primary hypertension Qualified Code(s): I10 - Essential (primary) hypertension Plan History of alcohol abuse: Last alcoholic drink in the last 1 year. History of chronic tobacco use: Nicotine patch as needed. Bullard to be removed today. Full code Cardiac diet. Protonix for PUD prophylaxis Anticoagulation as per primary team Discharge plan: Patient would like to go home with home health on discharge. States she has been disabled for many years she has all the equipment she needs. Will need physical therapy on discharge. Thank you for involving us in care of Ms. Hernandez. Please call back with any questions. Attestations 2 Medical Necessity Statement*: Requires further hospitalization for postoperative care as per primary team. Diagnoses Encounter for postoperative care Z48.89 S/P total left hip arthroplasty Z96.642 Peripheral arterial disease I73.9 Coronary artery disease involving [place] coronary artery of [place] heart without angina pectoris I25.10 Hypothyroidism type: unspecified Coronary Disease-Associated Artery/Lesion type: [place] artery [place] vs. transplanted heart: [place] heart Associated angina: without angina Primary hypertension I10 Hypertension type: primary hypertension
--- NOTE | 2023-12-10 15:58 | PC.NURSE ---
Pt's ride finally here to pick her up. Discharge instructions provided to pt with no questions or concerns at this time. Ice packs and ABD pillow sent with pt as well as loader engineer. All belongings with pt. To private vehicle via wheelchair.
--- NOTE | 2023-12-12 14:58 | PM.DCS ---
Discharge Providers Date of Admission: 12/09/23 16:13 Date of Discharge: December 10, 2023 Attending Provider at Admission: Nayana Cerna MD Attending Provider at Discharge: Nayana Cerna MD Consults: Dr. 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 and Contracted adductor tendon Procedure done: Left hip arthroplasty with revision components following removal of gamma 3 nail, long, and with supplemental adductor tenotomy Implants: The [place] total hip system with the christianity modular hip system with a size 155 stem by 16 mm diameter, a 21 mm proximal cone with +0 and V40, a size 43 mm outer diameter by 26 mm inner diameter universal head bipolar component and a 26 mm +0 chrome cobalt femoral head (3) Peripheral arterial disease: Status: Acute (4) CAD (coronary artery disease): Status: Acute Qualifiers: Associated angina: without angina Coronary Disease-Associated Artery/Lesion type: [place] artery Hypothyroidism type: unspecified [place] vs. transplanted heart: [place] heart Qualified Code(s): I25.10 - Atherosclerotic heart disease of [place] coronary artery without angina pectoris (5) HTN (hypertension): Status: Acute Qualifiers: Hypertension type: primary hypertension Qualified Code(s): I10 - Essential (primary) hypertension Reason for Visit Reason for Visit: M87.052 Brief History: This 52-year-old woman presents today with complaints of severe left hip pain. She previously had an intertrochanteric fracture in 2019 which underwent open reduction internal fixation with a long trochanteric nail by Dr. Hatch. The pain had been in her left hip since the time of her surgery. She was seen in my office and had difficulty standing and walking secondary to the pain. Previously, she had discussed left total hip arthroplasty with Dr. Hatch, and was interested in pursuing this route. At the time she was seen in the office, she was having significant issues with activities of daily living. She wished to proceed with removal of hardware and revision hip arthroplasty. In the office, consents were signed and questions were answered. Hospital Course Hospital Course Patient was admitted under observation status postoperatively following same-day surgery for left total hip arthroplasty with removal of prior gamma nail and placement of revision components for a revision hip arthroplasty. Postoperatively, the patient participated with physical therapy. She was doing well. She did require consultation with the medical service secondary to her multiple medical problems. On the first postoperative day, the patient was doing well. She wished to be discharged to home. She was monitored through the day and discharged in the evening. She will follow-up in the office as scheduled. Of note, there was concern with the anterior femur secondary to the patient's short stature and the straight stem of the femur. She will be touchdown weightbearing until we are able to better assess whether or not the thinning of the anterior cortex will become problematic. She will have home physical therapy. Physical Exam Const: COMMON NORMALS: no acute distress, average body habitus, patient oriented x3 and alert GENERAL APPEARANCE: cooperative and comfortable ORIENTATION/CONSCIOUSNESS: Yes awake HENMT: COMMON NORMALS: normocephalic and atraumatic HEAD & SCALP: normocephalic and atraumatic Eye: GENERAL EYE: appearance normal, both eyes and all related structures Chest: COMMONS NORMALS: normal inspection of the chest Resp: COMMON NORMALS: normal respiratory effort EFFORT & INSPECTION: Yes able to speak in complete sentences and Yes symmetric chest movement Extremity: LEFT LOWER EXTREMITY: Yes hip joint (Dressing is dry and intact.) Left hip: Yes ROM (Not evaluated.), Yes neurovascular exam (Intact distally.) and Yes other ( No tenderness anterior thigh) Neuro: COMMON NORMALS: patient oriented x3 SENSORIUM/ORIENTATION: Yes alert Psych: COMMON NORMALS: mental status grossly normal APPEARANCE: Yes grossly normal ATTITUDE: Yes calm and Yes engaged ATTENTION/CONCENTRATION: Yes attention grossly intact Skin: COMMON NORMALS: no rashes or lesions noted GENERAL SKIN EXAM: no rashes or lesions noted Urinary Catheter Management: Bullard: Cath Placed During This Visit: yes, but has since been removed by the nurse Reason for Continuing Indwelling Catheter: Perioperative Use in Selected Surgeries Urinary Catheter Date of Insertion: 12/09/23 Urinary Catheter Time of Insertion: 13:20 Date Urinary Catheter Removed: 12/10/23 Time Urinary Catheter Discontinued: 05:19 Discharge Data Studies Completed and Pending Completed Studies During Hospitalization Category Date Time Status XR femur LT min 2V* [id number] Routine Exams 12/09/23 16:50 Completed XR pelvis 1-2V* [id number] Routine Exams 12/09/23 16:46 Completed Radiology Impressions Pelvis X-Ray 12/09/23 16:46 IMPRESSION: Intact hip prosthesis Femur X-Ray 12/09/23 16:50 IMPRESSION: Intact prosthesis Laboratory Results WBC 12.70 10^3/uL (3.29-11.43) H 12/10/23 05:29 Corrected WBC Cancelled 12/09/23 18:00 RBC 2.96 10^6/uL (3.85-5.65) L 12/10/23 05:29 Hgb 8.30 g/dL (11.27-16.99) L 12/10/23 05:29 Hct 26.8 % (36-47) L 12/10/23 05:29 MCV 90.5 fl (85-98) 12/10/23 05:29 MCH 28.0 pg (27-33) 12/10/23 05:29 MCHC 31.0 g/dL (30-55) 12/10/23 05:29 RDW 14.4 % (12.1-15.1) 12/10/23 05:29 Plt Count 233 10^3/cmm (157-399) 12/10/23 05:29 MPV 9.1 fL (7.4-10.4) 12/10/23 05:29 Gran % Cancelled 12/09/23 18:00 Neut % (Auto) 64.3 % 12/10/23 05:29 Lymph % (Auto) 24.9 % 12/10/23 05:29 [place] % (Auto) 10.3 % 12/10/23 05:29 Eos % (Auto) 0.0 % 12/10/23 05:29 Baso % (Auto) 0.2 % 12/10/23 05:29 Neut # (Auto) 8.16 10^3/uL (1.8-7.7) H 12/10/23 05:29 Lymph # (Auto) 3.2 10^3/uL (0.8-4.8) 12/10/23 05:29 [place] # (Auto) 1.3 10^3/uL (0.2-0.9) H 12/10/23 05:29 Eos # (Auto) 0.0 10^3/uL (0.0-0.8) 12/10/23 05:29 Baso # (Auto) 0.0 10^3/uL (0.0-0.1) 12/10/23 05:29 Absolute Gran (auto) Cancelled 12/09/23 18:00 Nucleated RBC % (auto) 0 % 12/10/23 05:29 Nucleated RBCs # 0.0 /100WBC 12/10/23 05:29 Sodium 139 mmol/L (136-145) 12/10/23 05:29 Potassium 3.8 mmol/L (3.5-5.1) 12/10/23 05:29 Chloride 109 mmol/L (98-107) H 12/10/23 05:29 Carbon Dioxide 22 mmol/L (22-29) 12/10/23 05:29 Anion Gap 11.8 (5-19) 12/10/23 05:29 BUN 10 mg/dL (6-20) 12/10/23 05:29 Creatinine 0.6 mg/dL (0.5-0.9) 12/10/23 05:29 GFR Calculation 105.0 mL/min (90-130) 12/10/23 05:29 Glucose 101 mg/dL (65-115) 12/10/23 05:29 Calculated Osmolality 287 mOsm/kg (285-295) 12/10/23 05:29 Calcium 8.8 mg/dL (8.5-10.5) 12/10/23 05:29 Total Bilirubin 0.2 mg/dL (0.15-1.2) 12/10/23 05:29 AST 21 U/L (0-32) 12/10/23 05:29 ALT 15 U/L (0-33) 12/10/23 05:29 Alkaline Phosphatase 98 U/L (35-105) 12/10/23 05:29 Total Protein 6.3 g/dL (6.6-8.7) L 12/10/23 05:29 Albumin 3.1 g/dL (3.5-5.2) L 12/10/23 05:29 Globulin 3.2 g/dL (1.3-4.6) 12/10/23 05:29 Urine Color Straw (Yellow) 12/10/23 09:30 Urine Appearance Clear (CLEAR) 12/10/23 09:30 Urine pH 7 (5-7) 12/10/23 09:30 Ur Specific [place] 1.010 (1.005-1.030) 12/10/23 09:30 Urine Protein Neg (Negative) 12/10/23 09:30 Urine Glucose (UA) Norm (Normal) 12/10/23 09:30 Urine Ketones Negative (Negative) 12/10/23 09:30 Urine Blood Neg (Negative) 12/10/23 09:30 Urine Nitrate Negative (Negative) 12/10/23 09:30 Urine Bilirubin Neg (Negative) 12/10/23 09:30 Urine Urobilinogen Norm mg/dL (Negative) 12/10/23 09:30 Ur Leukocyte Esterase Negative (Negative) 12/10/23 09:30 Vitals Last Vital Signs Temp 97.5 F L 12/10/23 14:25 Pulse 106 H 12/10/23 14:25 Resp 18 12/10/23 15:54 BP 93/56 12/10/23 14:25 Pulse Ox 97 12/10/23 14:25 O2 Del Method Room Air 12/10/23 12:00 Discharge Plan Discharge Patient Disposition: Home Health Service Condition: Stable Prescriptions: New acetaminophen 500 mg Tablet 1,000 mg PO Q8H 15 Days Qty: 0 0RF Continued omeprazole magnesium 20 mg capsule,delayed release(DR/EC) 20 mg PO BID montelukast 10 mg tablet 10 mg PO DAILY clopidogrel 75 mg tablet 75 mg PO DAILY cetirizine 10 mg capsule 10 mg PO DAILY promethazine 25 mg tablet 25 mg PO TID PRN (Reason: Nausea And Vomiting) levothyroxine 112 mcg capsule 100 mcg PO DAILY alprazolam 2 mg tablet 2 mg PO DAILY PRN (Reason: Anxiety) mirtazapine 15 mg tablet 7.5 mg PO DAILY colchicine [Colcrys] 0.6 mg tablet 0.6 mg PO BID Xtampza ER 27 mg cap,sprinkl,ER12hr(DONT CRUSH) 27 mg PO BID Rx Instructions: must administer with a meal/food albuterol sulfate 90 mcg/actuation aerosol powdr breath activated 2 inh inhalation Q4H PRN (Reason: Shortness Of Breath) bupropion HCl [Wellbutrin SR] 100 mg tablet sustained-release 12 hr 150 mg PO BID guaifenesin [Mucinex Fast-Max Chest-Congest] 100 mg/5 mL liquid 100 mg PO Q4H PRN (Reason: cough) Qty: 500 2RF naloxone [Narcan] 4 mg/actuation spray,non-aerosol 1 ea intranasal PRN PRN (Reason: overdose) nitroglycerin 0.4 mg tablet, sublingual 0.4 mg sublingual Q5M PRN (Reason: chest pain) Qty: 25 3RF Rx Instructions: do not exceed 3 doses per episode tizanidine 4 mg tablet 4 mg PO TID ipratropium-albuterol 0.5 mg-3 mg(2.5 mg base)/3 mL solution for nebulization 3 ml inhalation Q4H PRN (Reason: wheezing) Qty: 90 3RF (DME) acapella device See Rx Instructions .Route .MEDSUPPLY Qty: 1 0RF Rx Instructions: As directed multivitamin Tablet 1 tab PO DAILY aspirin [Adult Low Dose Aspirin] 81 mg tablet,delayed release (DR/EC) 81 mg PO DAILY cholecalciferol (vitamin D3) 25 mcg (1,000 unit) capsule 25 mcg PO DAILY metoprolol tartrate 25 mg tablet 50 mg PO BID gabapentin 800 mg tablet 800 mg PO TID (DME) Hinged Knee Brace See Rx Instructions .Route .MEDSUPPLY Qty: 1 0RF Rx Instructions: As directed Trelegy Ellipta 100-62.5-25 mcg blister with device 1 inh inhalation DAILY Qty: 60 5RF (DME) Bedside Commode See Rx Instructions .Route .MEDSUPPLY Qty: 1 0RF Rx Instructions: As directed cilostazol 100 mg tablet 100 mg PO BID Rx Instructions: TAKE 1 tab BY MOUTH TWICE A DAY simvastatin 40 mg tablet 40 mg PO DAILY Rx Instructions: TAKE 1 TABLET BY MOUTH DAILY DOSE CHANGE No Action oxycodone 15 mg tablet 15 mg PO Q4H PRN (Reason: Pain) Qty: 10 0RF Discharge Orders: Discharge Order (Routine); Ordered 12/10/23 Ordered By: Nayana Cerna Referrals: [facility] [Outside] Nayana Cerna MD [Physician] - 12/22/23 9:15 am (FOLLOW UP APPOINTMENT IS JANUARY 29 AT 10:30) Rose Beaver DO [Primary Care Provider] - 12/23/23 10:00 am Discharge Diet: Advance as tolerated and Usual diet Discharge Activity: Limit activity as instructed, Use walker/crutches as instructed and As per PT/OT instructions Patient Instructions: Precautions after Total Joint Replacement Surgery (DC), Joint Replacement Surgery (DC), Opioid Safety Activity Restrictions/Additional Instructions: Ice and elevation to left lower extremity. Touchdown weightbearing. Return to office as scheduled. You may shower, but keep dressings in place at this point. Discharge Attestations Time Spent in Discharge Care*: greater than 30 min Specific Discharge Activities: educating patient, documenting/other paperwork and evaluating patient/reviewing data Quality Metrics Clinical Quality Measures [ No reported AMI, CVA or VTE this stay] Coding Level of Care Code Acute Code for Chg Fwd Diagnoses Encounter for postoperative care Z48.89 S/P total left hip arthroplasty Z96.642 Peripheral arterial disease I73.9 Coronary artery disease involving [place] coronary artery of [place] heart without angina pectoris I25.10 Associated angina: without angina Coronary Disease-Associated Artery/Lesion type: [place] artery Hypothyroidism type: unspecified [place] vs. transplanted heart: [place] heart Primary hypertension I10 Hypertension type: primary hypertension
== END 2023-12-10 15:59 | disposition home health service (06) | DRG 470 ==
LOC: MEDSURG 16:26
PROVIDERS: Nurse Practitioner; Student in an Organized Health Care Education/Training Program; Admitting Provider Specialist; PCP Family Medicine; Visit Provider Specialist
PROC: 0QP704Z Removal of Internal Fixation Device from Left Upper Femur, Open Approach (ICD-10-PCS; principal; 2023-12-09 11:55)
PROC: 0QP704Z Removal of Internal Fixation Device from Left Upper Femur, Open Approach (ICD-10-PCS; CPT 27125; 2023-12-09 11:55)
DX: M87.9 Osteonecrosis, unspecified (principal); C85.10 Unspecified B-cell lymphoma, unspecified site; I10 Essential (primary) hypertension; I25.10 Atherosclerotic heart disease of native coronary artery without angina pectoris; Z95.5 Presence of coronary angioplasty implant and graft; J44.9 Chronic obstructive pulmonary disease, unspecified; K21.9 Gastro-esophageal reflux disease without esophagitis; E03.9 Hypothyroidism, unspecified; F17.210 Nicotine dependence, cigarettes, uncomplicated; F10.11 Alcohol abuse, in remission; E78.5 Hyperlipidemia, unspecified; Z79.02 Long term (current) use of antithrombotics/antiplatelets; Z79.82 Long term (current) use of aspirin; I73.9 Peripheral vascular disease, unspecified
CPT/HCPCS: 36415; 51702; 72170; 73552; 77063; 77067; 80053; 81003; 85025; 94640; 96372; 97110; 97161; 97165; 97530; C1713; C1776; J0131; J0690; J1100; J1170; J2371; J2405; J2704; J2710; J3010; J3411; J3490; J7030; J7050; J7626

== ENCOUNTER 2023-12-14 19:19 | Emergency (ER) | payer MEDICARE, MEDICAID, SELFPAY ==
[2023-12-14] VITALS (17 sets, daily range): BP systolic 118–157; BP diastolic 74–87; PULSE 90–103; RESP 8–23; TEMP 36.6; O2SAT 96–100; BMI 26.2
--- NOTE | 2023-12-14 19:37 | XRR_ITS ---
PROCEDURE INFORMATION: Exam: XR Left Hip Exam date and time: 12/14/2023 8:04 PM Age: 52 years old Clinical indication: Left hip; Prior surgery; Surgery date: 3-7 days post-operative; Surgery type: Lt hip arthroplasty; Patient HX: Lt hip pain; Obvious deformity; Recent lt hip replacement TECHNIQUE: Imaging protocol: Radiologic exam of the left hip. Views: 2 or 3 views hip with pelvis when performed. COMPARISON: CR XR pelvis 1-2V* [id number] 12/09/2023 3:50 PM FINDINGS: Bones/joints: Superior dislocation of the acetabular and femoral components of the left total hip replacement. This is not well seen on the lateral view. Contour abnormality of the left acetabulum may represent fracture or may be chronic/postsurgical in nature. Soft tissues: There is edema, hematoma, and emphysema in the soft tissues of the visualized left hip/upper thigh. XR/XR hip LT 2-3V wo/w pel* [id number] IMPRESSION: 1. Superior dislocation of the acetabular and femoral components of the left total hip replacement. 2. Contour abnormality of the left acetabulum may represent fracture or may be chronic/postsurgical in nature. 3. There is edema, hematoma, and emphysema in the soft tissues of the visualized left hip/upper thigh.
[2023-12-14] MEDS: fentaNYL 50 mcg/mL INJ 2mL IVP ×2 (19:44→21:27)
[2023-12-14] MEDS: ondansetron 2 mg/ML SDV 2 mL 4 MG IVP (20:24)
--- NOTE | 2023-12-14 20:25 | XRR_ITS ---
PROCEDURE INFORMATION: Exam: XR Left Hip Exam date and time: 12/14/2023 8:34 PM Age: 52 years old Clinical indication: Hip pain; Left hip; Prior surgery; Surgery date: 3-7 days post-operative; Surgery type: Lt hip replacement; Additional info: Post reduction lt hip TECHNIQUE: Imaging protocol: Radiologic exam of the left hip. Views: 2 or 3 views hip with pelvis when performed. COMPARISON: CR (PELVIS, ) 12/14/2023 8:04 PM FINDINGS: Tubes, catheters and devices: There are surgical clips overlie the left hip region. Bones/joints: Status post reduction of the left total hip replacement. Currently the acetabular and femoral components appear to be in satisfactory alignment. Soft tissues: Soft tissue edema/hematoma/emphysema. XR/XR hip LT 2-3V wo/w pel* [id number] IMPRESSION: Status post reduction of the left total hip replacement. Currently the acetabular and femoral components appear to be in satisfactory alignment.
[2023-12-14] MEDS: propofol 10 mg/mL SDV 20 mL 150 MG IVP (20:26)
--- NOTE | 2023-12-14 20:35 | XRR_ITS ---
PROCEDURE INFORMATION: Exam: XR Left Tibia and Fibula Exam date and time: 12/14/2023 8:37 PM Age: 52 years old Clinical indication: Injury or trauma; Patient HX: Lt lower extremity injury during reduction; Dr felt pop around knee during reduction TECHNIQUE: Imaging protocol: Radiologic exam of the left tibia and fibula. Views: 2 views. COMPARISON: CT angio abd aorta runof [id number] 03/05/2021 8:29 AM FINDINGS: Bones/joints: There is a nondisplaced hairline fracture through the proximal fibular diaphysis with horizontal and oblique components. There are ill-defined lucencies through the lateral tibial plateau consistent with fractures of unknown chronicity. Soft tissues: There is edema in the soft tissues. XR/XR tibia fibula LT 2V [id number] IMPRESSION: 1. Nondisplaced hairline fracture through the proximal fibular diaphysis. 2. There are ill-defined lucencies through the lateral tibial plateau consistent with fractures of unknown chronicity.
--- NOTE | 2023-12-14 20:57 | PC.NURSE ---
attempted to call the pts daughter x3 without answer and unable to leave a voicemail at this time.
--- NOTE | 2023-12-14 21:07 | PC.NURSE ---
pt gave consent for me to speak with her brother Triston Rao.
--- NOTE | 2023-12-14 21:27 | W.ED.EXTPRO ---
HPI - Extremity Problem General: Chief complaint: Extremity Problem,Nontraumatic Stated complaint: HIP PAIN Time Seen by Provider: 12/14/23 19:25 History of Present Illness: 52-year-old female presenting with left hip pain. She had a recent arthroplasty of the left hip. She notes that she was on the couch, try to get up and felt a pop with immediate pain. She had shortening on arrival of EMS. She received 50 mcg of fentanyl en route, with some improvement in her pain. She is able to wiggle her toes she says. She can feel her foot. No other injury. Associated symptoms: Deny chest pain or fever(s) Review of Systems Const: Denies: fever(s) Card: Denies: chest pain Resp: Denies: dyspnea GI: Denies: abdominal pain or vomiting PFS ED PFSH: Medical History Pulmonary artery abnormality Primary osteoarthritis of left knee Injury caused by twisting MCL sprain of left knee Left anterior knee pain Osteoarthritis of left hip Seizure disorder GERD (gastroesophageal reflux disease) Hypothyroidism HTN (hypertension) Peripheral arterial disease History of femoral angiogram CAD (coronary artery disease) Throat cancer Surgical History S/P aortobifemoral bypass surgery History of hip surgery H/O tubal ligation Family History Mother Osteoarthritis Sister Thyroid disease Social History Smoking and tobacco/nicotine status: current every day tobacco/nicotine user (0.5 ppd) cigarettes Packs smoked per day: 0.5 Years cigarettes smoked: 37 Quit status (tobacco/nicotine): considering quitting Second hand smoke exposure: Yes Alcohol intake: current Alcohol intake frequency: few times a week Substance/Drug Use: never Caregiver/support person: Yes Lives independently: Yes Household members: none Housing: Manufactured/Mobile home Marital status: / Current occupational status: disabled Pets and animals: Yes Do you think of yourself as: Straight/Heterosexual Current gender identity: Female Agree to transfusion: No Physical Exam Const: GENERAL APPEARANCE: cooperative and frail appearing HENMT: COMMON NORMALS: normocephalic and atraumatic HEAD & SCALP: normocephalic and atraumatic Eye: COMMON NORMALS: Equal, round and reactive pupils present and EOMs intact bilaterally PUPIL: Yes Equal, round and reactive pupils present Neck/C-Spine: GENERAL: Yes trachea midline CERVICAL SPINE: Yes cervical ROM normal Chest: CHEST: Yes Symmetrical chest wall rise Resp: COMMON NORMALS: normal respiratory effort, No use of accessory muscles and clear to auscultation bilaterally AUSCULTATION: clear to auscultation bilaterally Cardio: COMMON NORMALS: regular rate and regular rhythm RATE: regular rate RHYTHM: regular rhythm GI: COMMON NORMALS: Soft to palpation PALPATION: Yes Soft to palpation Extremity: NARRATIVE EXTREMITY EXAM: Examination of the left lower extremity reveals shortening present. There is no significant rotation. Deformity is noted in the left hip with a bulge superiorly and laterally. Pulses are intact distally. Sensation is intact. Incisions are covered, and look excellent. Neuro: TALHA COMA SCALE: document GCS findings Talha coma scale eye opening: Spontaneous [place] coma scale verbal response: Orientated Talha coma scale motor response: Obey commands Talha coma scale total score: 15 Skin: COMMON NORMALS: no rashes or lesions noted GENERAL SKIN EXAM: no rashes or lesions noted Procedures Orthopedic Joint Reduction Joint #1: Time Out Performed: Yes Side: left Joint Reduction Location: hip Analgesia: procedural sedation Technique used: direct manipulation and other (After morning) Post-reduction neuro exam: intact Post-reduction vascular: intact Post Reduction X-Ray Obtained: Yes Post Reduction X-Ray Results: reduced Splint Applied: Yes Patient Tolerated Procedure: well Additional Comments: Nondisplaced fibular fracture, which occurred during bending at the knee for fulcrum pressure using Captain Leonidas technique to reduce hip Procedural Sedation Indication: fracture/dislocation reduction ASA Class: II Preparation: linoleum layer apprentice applied, pulse oximeter, supplemental O2 applied, suction/airway equipment at bedside and IV secured Fentanyl: IV Fentanyl dose (mcg): 50 IV Propofol dose (mg): 150 Patient Tolerated Procedure: well and no complications Complications: none Course Vital Signs: Vital signs: Vital Signs Temperature 97.9 F 12/14/23 19:24 Pulse Rate 93 12/14/23 22:46 Respiratory Rate 18 12/14/23 22:46 Blood Pressure 123/81 12/14/23 22:46 Pulse Oximetry 96 12/14/23 22:46 Oxygen Delivery Me thod Room Air 03/24/24 22:46 Oxygen Flow Rate 2 12/14/23 20:38 MDM - Extremity (Nontraumatic) Medical Decision Making 52-year-old female with a superior hip dislocation following arthroplasty. It was reduced in the ER to normal position under conscious sedation. During the process, complicated by a fibular fracture proximally that is nondisplaced. This patient does appear to have osteopenic bones on x-ray. I spoke with orthopedics. She will be placed in a knee immobilizer, mainly to prevent redislocation of the hip, but also to help stabilize the fibular fracture. She will be made nonweightbearing. She has an appointment in 1 week with orthopedics for follow-up. She sees her primary care physician tomorrow. Instructions were explained to her, and her family over the phone. She will be allowed discharge. Lab Data Radiology Impressions Hip/Pelvis X-Ray 12/14/23 20:25 IMPRESSION: Status post reduction of the left total hip replacement. Currently the acetabular and femoral components appear to be in satisfactory alignment. Tibia/Fibula X-Ray 12/14/23 20:35 IMPRESSION: 1. Nondisplaced hairline fracture through the proximal fibular diaphysis. 2. There are ill-defined lucencies through the lateral tibial plateau consistent with fractures of unknown chronicity. All radiology interpretation(s) finalized by discharge Discharge Plan Discharge Patient Disposition: Home Clinical Impression: Closed dislocation of left hip, Fracture of fibula, proximal Condition: Stable Prescriptions: Continued oxycodone 15 mg tablet 15 mg PO Q4H PRN (Reason: Pain) Qty: 10 0RF No Action omeprazole magnesium 20 mg capsule,delayed release(DR/EC) 20 mg PO BID montelukast 10 mg tablet 10 mg PO DAILY clopidogrel 75 mg tablet 75 mg PO DAILY cetirizine 10 mg capsule 10 mg PO DAILY promethazine 25 mg tablet 25 mg PO TID PRN (Reason: Nausea And Vomiting) levothyroxine 112 mcg capsule 100 mcg PO DAILY alprazolam 2 mg tablet 2 mg PO DAILY PRN (Reason: Anxiety) mirtazapine 15 mg tablet 7.5 mg PO DAILY colchicine [Colcrys] 0.6 mg tablet 0.6 mg PO BID Xtampza ER 27 mg cap,sprinkl,ER12hr(DONT CRUSH) 27 mg PO BID Rx Instructions: must administer with a meal/food albuterol sulfate 90 mcg/actuation aerosol powdr breath activated 2 inh inhalation Q4H PRN (Reason: Shortness Of Breath) bupropion HCl [Wellbutrin SR] 100 mg tablet sustained-release 12 hr 150 mg PO BID guaifenesin [Mucinex Fast-Max Chest-Congest] 100 mg/5 mL liquid 100 mg PO Q4H PRN (Reason: cough) Qty: 500 2RF naloxone [Narcan] 4 mg/actuation spray,non-aerosol 1 ea intranasal PRN PRN (Reason: overdose) nitroglycerin 0.4 mg tablet, sublingual 0.4 mg sublingual Q5M PRN (Reason: chest pain) Qty: 25 3RF Rx Instructions: do not exceed 3 doses per episode tizanidine 4 mg tablet 4 mg PO TID ipratropium-albuterol 0.5 mg-3 mg(2.5 mg base)/3 mL solution for nebulization 3 ml inhalation Q4H PRN (Reason: wheezing) Qty: 90 3RF (DME) acapella device See Rx Instructions .Route .MEDSUPPLY Qty: 1 0RF Rx Instructions: As directed multivitamin Tablet 1 tab PO DAILY aspirin [Adult Low Dose Aspirin] 81 mg tablet,delayed release (DR/EC) 81 mg PO DAILY cholecalciferol (vitamin D3) 25 mcg (1,000 unit) capsule 25 mcg PO DAILY metoprolol tartrate 25 mg tablet 50 mg PO BID gabapentin 800 mg tablet 800 mg PO TID (DME) Hinged Knee Brace See Rx Instructions .Route .MEDSUPPLY Qty: 1 0RF Rx Instructions: As directed Trelegy Ellipta 100-62.5-25 mcg blister with device 1 inh inhalation DAILY Qty: 60 5RF (DME) Bedside Commode See Rx Instructions .Route .MEDSUPPLY Qty: 1 0RF Rx Instructions: As directed cilostazol 100 mg tablet 100 mg PO BID Rx Instructions: TAKE 1 tab BY MOUTH TWICE A DAY simvastatin 40 mg tablet 40 mg PO DAILY Rx Instructions: TAKE 1 TABLET BY MOUTH DAILY DOSE CHANGE acetaminophen 500 mg Tablet 1,000 mg PO Q8H 15 Days Qty: 0 0RF Discharge Orders: Discharge ED (Routine); Ordered 03/24/24 Ordered By: Mohit Veloz Referrals: Rose Beaver DO [Primary Care Provider] - Patient Instructions: Leg Fracture (ED), Hip Dislocation (ED), Opioid Safety, Pain Management Activity Restrictions/Additional Instructions: Stay in your knee immobilizer until seen by orthopedics. Do not bear weight on the left side, until seen by orthopedics as well. Use crutches or a walker for any transfers or weightbearing. Ice will help with pain. Pain medication as directed. A prescription was sent to your pharmacy. Call the orthopedic clinic tomorrow and let them know you were seen here with a hip dislocation. Return for any problems. Coding Level of Care Code ED [employer] for [facility]
--- NOTE | 2023-12-14 22:47 | PC.NURSE ---
pts brother called and informed us that the pts daughter would not be able to pick her up tonight. pt informed of news and is currently looking for a ride
== END 2023-12-14 23:02 | disposition home or self-care (01) ==
PROVIDERS: Emergency Provider Emergency Medicine; PCP Family Medicine
DX: T84.021A Dislocation of internal left hip prosthesis, initial encounter (principal); S82.832A Other fracture of upper and lower end of left fibula, initial encounter for closed fracture; Z79.02 Long term (current) use of antithrombotics/antiplatelets; Z79.82 Long term (current) use of aspirin; F17.210 Nicotine dependence, cigarettes, uncomplicated; I10 Essential (primary) hypertension; I25.10 Atherosclerotic heart disease of native coronary artery without angina pectoris; Z85.89 Personal history of malignant neoplasm of other organs and systems; Z96.642 Presence of left artificial hip joint; X50.9XXA Other and unspecified overexertion or strenuous movements or postures, initial encounter
CPT/HCPCS: 27265; 73502; 73590; 96374; 96375; 99152; 99285; J2405; J2704; J3010

== ENCOUNTER 2023-12-21 11:01 | Emergency (ER) | payer MEDICARE, MEDICAID, SELFPAY ==
[2023-12-21] VITALS (11 sets, daily range): BP systolic 100–132; BP diastolic 59–78; PULSE 82–100; RESP 11–23; TEMP 37; O2SAT 95–98; BMI 22.4
--- NOTE | 2023-12-21 11:08 | XRR_ITS ---
PROCEDURE INFORMATION: Exam: XR Left Hip Exam date and time: 12/21/2023 11:24 AM Age: 53 years old Clinical indication: Hip pain; Left hip; Prior surgery; Surgery date: <1 month; Patient HX: Left leg pain; Lt total hip replacement 12/09/23; Previous dislocation x 3 days ago TECHNIQUE: Imaging protocol: Radiologic exam of the left hip. Views: 1 view hip with pelvis when performed. COMPARISON: CR XR hip LT 2-3V wo/w pel* [id number] 12/14/2023 8:34 PM FINDINGS: Bones/joints: Dislocation acetabular femoral components of left hip arthroplasty superiorly and laterally similar to 12/14/2023 at 8:06 p.m. Configuration left acetabulum appears similar to 12/14/2023. Soft tissues: Soft tissue swelling. Other findings: Limited study with only single AP image obtained. XR/XR hip LT 1V wo/w pel [id number] IMPRESSION: Dislocation left hip arthroplasty hardware similar to 12/14/2023.
[2023-12-21] MEDS: fentaNYL 50 mcg/mL INJ 2mL IVP ×2 (11:20→11:38)
[2023-12-21] MEDS: ondansetron 2 mg/ML SDV 2 mL 4 MG IVP (11:20)
--- NOTE | 2023-12-21 11:42 | CTR_ITS ---
PROCEDURE INFORMATION: Exam: CT Left Lower Extremity Without Contrast, Knee Exam date and time: 12/21/2023 12:01 PM Age: 53 years old Clinical indication: Pain; Knee; Left; Additional info: Recent tib/fib FX post hip reduction 1 week ago TECHNIQUE: Imaging protocol: CT of the left lower extremity without contrast was performed. Exam focused on the knee. Axial, coronal and sagittal reformatted images were created and reviewed. Radiation optimization: All CT scans at this facility use at least one of these dose optimization techniques: automated exposure control; mA and/or kV adjustment per patient size (includes targeted exams where dose is matched to clinical indication); or iterative reconstruction. COMPARISON: CT hip LT wo con* [id number] 12/21/2023 11:59 AM RADIATION DOSE METRICS: Total DLP (mGy-cm): 364.16 FINDINGS: Bones/joints: Osteopenia. Essentially nondisplaced fracture of the lateral tibial plateau, likely chronic. Suspected nondisplaced fracture of the proximal fibular metaphysis, age-indeterminate. Serpentine sclerosis in the distal femur, proximal tibia and proximal fibula, suggestive of avascular necrosis. Chronic appearing deformity of the medial tibial spine. Ghost tracks from prior orthopedic hardware in the distal tibia. No dislocation. Small suprapatellar effusion. Soft tissues: Mild subcutaneous edema. CT/CT knee LT wo con* [id number] IMPRESSION: 1. Essentially nondisplaced fracture of the lateral tibial plateau, likely chronic. 2. Suspected nondisplaced fracture of the proximal fibular metaphysis, age indeterminate. 3. Additional findings, as above.
--- NOTE | 2023-12-21 11:42 | CTR_ITS ---
PROCEDURE INFORMATION: Exam: CT Left Lower Extremity Without Contrast, Hip Exam date and time: 12/21/2023 11:59 AM Age: 53 years old Clinical indication: Pain; Left; Prior surgery; Surgery date: 3-7 days post-operative; Surgery type: Lt hip; Additional info: Dislocation post replacement TECHNIQUE: Imaging protocol: CT of the left lower extremity without contrast was performed. Exam focused on the hip. Radiation optimization: All CT scans at this facility use at least one of these dose optimization techniques: automated exposure control; mA and/or kV adjustment per patient size (includes targeted exams where dose is matched to clinical indication); or iterative reconstruction. COMPARISON: CT angio abd aorta runof [id number] 03/05/2021 8:29 AM RADIATION DOSE METRICS: Total DLP (mGy-cm): 329 FINDINGS: Limitations: Images degraded by artifact metallic hardware left hip arthroplasty. Bones/joints: Superior and lateral dislocation left total hip arthroplasty, acetabular and femoral components. Slight fragmentation lateral aspect, upper-outer left acetabulum. Slight fragmentation proximal femur, greater trochanter area adjacent to region of prior long intramedullary warren/nail, proximal portion femoral shaft component of current hardware. Lucent defect lateral aspect proximal femur near trochanteric, subtrochanteric area may be postoperative change. Fragmentation distal femoral shaft anteriorly level of distal end, tip of femoral component of hardware. 5 mm calcific density or fragment projects within posteromedial region mid to upper left acetabulum. Femoral head component appears to project eccentrically within acetabular cup component, suggesting disruption, displacement, narrowing, or loss of portion of the polyethylene liner of the acetabular cup component. Soft tissues: Irregular lobular hypodense collection projects soft tissues lateral to left hip region, possibly seroma, hematoma, Yates Jessica lesion. Also, lobular mixed density collection containing gas bubble projects medial to proximal femoral extending to medial musculature and tore left pubic bones, possibly hematoma, postoperative changes, though abscess or other process possible. Large, lobular heterogeneous, mixed density structure or collection projects posterior lateral left hip region, extending along proximal left femur, left hip joint, acetabulum, possibly hematoma. Abscess or other process possible. Vasculature: Arterial calcification, atherosclerotic disease. CT/CT hip LT wo con* [id number] IMPRESSION: 1. Evidence of fracture-dislocation left hip total hip arthroplasty. 2. Fracture, fragmentation left femur as described. 3. 5 mm calcific density or fragment projects within left acetabulum. 4. Femoral head component appears to project eccentrically within acetabular cup component, suggesting disruption, displacement, narrowing, or loss of portion of the polyethylene liner of the acetabular cup component. 5. Irregular, lobular hypodense, mixed density, heterogeneous structures or collections project about left hip, left femur, left hemipelvis with gas bubble. Correlate for hematoma, seroma, abscess, Yates Jessica lesion, or other process.
--- NOTE | 2023-12-21 11:54 | ED_ITS ---
HPI - Extremity Problem General: Chief complaint: Extremity Problem,Nontraumatic Stated complaint: LEFT HIP/LEG PAIN S/P FALL Time Seen by Provider: 12/21/23 11:07 History of Present Illness: Presents to the ER by EMS with complaints of her left hip dislocating. Patient says that she was laying on her couch and went to sit up and raise her left leg and she felt an immediate pop and pain. Patient just recently had surgery approximate 2 weeks ago for total hip replacement due to avascular necrosis, about 1 week ago her hip was dislocated and was reduced in the ER. She may have suffered a proximal fibular fracture during this episode, patient has known osteoporosis and the reason her hip was replaced was avascular necrosis. EMS gave her 50 mcg of fentanyl intranasally because they were unable to obtain IV access. Review of Systems General: Reports: 10 or more systems reviewed and unremarkable except in HPI and below PFSH ED PFSH: Medical History Pulmonary artery abnormality Primary osteoarthritis of left knee Injury caused by twisting MCL sprain of left knee Left anterior knee pain Osteoarthritis of left hip Seizure disorder GERD (gastroesophageal reflux disease) Hypothyroidism HTN (hypertension) Peripheral arterial disease History of femoral angiogram CAD (coronary artery disease) Throat cancer Surgical History S/P aortobifemoral bypass surgery History of hip surgery H/O tubal ligation Family History Mother Osteoarthritis Sister Thyroid disease Social History Smoking and tobacco/nicotine status: current every day tobacco/nicotine user (0.5 ppd) cigarettes Packs smoked per day: 0.5 Years cigarettes smoked: 37 Quit status (tobacco/nicotine): considering quitting Second hand smoke exposure: Yes Alcohol intake: current Alcohol intake frequency: few times a week Substance/Drug Use: never Caregiver/support person: Yes Lives independently: Yes Household members: none Housing: Manufactured/Mobile home Marital status: / Current occupational status: disabled Pets and animals: Yes Do you think of yourself as: Straight/Heterosexual Current gender identity: Female Agree to transfusion: No Physical Exam Const: COMMON NORMALS: no acute distress, average body habitus, patient oriented x3, no limitations, healthy appearing, alert and well nourished HENMT: COMMON NORMALS: normocephalic, atraumatic, hearing grossly normal bilaterally, external ears normal, Normal external nose present, moist oral mucous membranes and oropharynx normal HEAD & SCALP: normocephalic and atraumatic NOSE: Normal external nose present EXTERNAL EAR: Yes external ears normal Neck/C-Spine: COMMON NORMALS: no JVD Chest: COMMONS NORMALS: normal inspection of the chest and normal palpation of entire chest wall Resp: COMMON NORMALS: normal respiratory effort, No retractions, No use of accessory muscles and clear to auscultation bilaterally AUSCULTATION: clear to auscultation bilaterally Cardio: COMMON NORMALS: no JVD, regular rate, regular rhythm, S1 normal heart sound present, S2 normal heart sound present, No clicks present (Cardio), No murmurs present (Cardio) and No rub (Cardio) RATE: regular rate RHYTHM: regular rhythm HEART SOUNDS: S1 normal heart sound present and S2 normal heart sound present GI: COMMON NORMALS: Normal to inspection, nondistended, normoactive bowel sounds present, Soft to palpation, non-tender, No hepatosplenomegaly present and no masses PALPATION: Yes Soft to palpation and Yes No hepatosplenomegaly present Extremity: NARRATIVE EXTREMITY EXAM: Deformity noted with external rotation of the left hip, extreme pain to minimal palpation. Neuro: COMMON NORMALS: patient oriented x3 SENSORIUM/ORIENTATION: Yes alert Procedures Orthopedic Joint Reduction Joint #1: Time Out Performed: Yes Side: left Joint Reduction Location: hip Technique used: traction/counter-traction Post-reduction neuro exam: intact Post-reduction vascular: intact Post Reduction X-Ray Obtained: Yes Post Reduction X-Ray Results: reduced Patient Tolerated Procedure: well and no complications Additional Comments: Reduction performed by Dr. Mendosa orthopedics with my assist and my performing conscious sedation with propofol Procedural Sedation Presedation Evaluation: Dislocated left hip replacement ASA Class: II Time of Last PO Intake: 06:00 Preparation: cardiac rehabilitation program director applied, pulse oximeter, supplemental O2 applied and IV secured IV Propofol dose (mg): 100 Patient Tolerated Procedure: well and no complications Course Vital Signs: Vital signs: Vital Signs Temperature 98.6 F 12/21/23 11:06 Pulse Rate 91 12/21/23 13:11 Respiratory Rate 15 03/31/24 12:57 Blood Pressure 115/60 12/21/23 13:11 Pulse Oximetry 97 12/21/23 13:11 Oxygen Delivery Me thod Nasal Cannula 12/21/23 12:57 MDM - Extremity (Nontraumatic) Medical Decision Making Upon arrival patient was given a total of 100 mcg of fentanyl followed by half milligram of Dilaudid. Dr. Mendosa was consulted after x-rays and CT showed dislocation again. Patient was consciously sedated wit approximate 100 mg of propofol and Dr. Mendosa reduced the hip dislocation with ease with no complications. Post x-rays was obtained. Patient will be placed back in her knee immobilizer and a adductor pillow and instructed to follow-up with Miranda at the orthopedics office tomorrow as previously scheduled. Patient be nonweightbearing and instructed to be extremely careful. Differential Diagnosis Unlikely herpes zoster, gout, cellulitis, superficial thrombophlebitis, deep venous thrombosis of upper extremity, lower extremity edema or deep vein thrombosis of lower extremity Medical Records I reviewed the patient's medical records. Lab Data I reviewed the patient's lab results. Radiology Impressions Hip X-Ray 12/21/23 11:08 IMPRESSION: Dislocation left hip arthroplasty hardware similar to 12/14/2023. Hip CT 12/21/23 11:42 IMPRESSION: 1. Evidence of fracture-dislocation left hip total hip arthroplasty. 2. Fracture, fragmentation left femur as described. 3. 5 mm calcific density or fragment projects within left acetabulum. 4. Femoral head component appears to project eccentrically within acetabular cup component, suggesting disruption, displacement, narrowing, or loss of portion of the polyethylene liner of the acetabular cup component. 5. Irregular, lobular hypodense, mixed density, heterogeneous structures or collections project about left hip, left femur, left hemipelvis with gas bubble. Correlate for hematoma, seroma, abscess, Yates Jessica lesion, or other process. Knee CT 12/21/23 11:42 IMPRESSION: 1. Essentially nondisplaced fracture of the lateral tibial plateau, likely chronic. 2. Suspected nondisplaced fracture of the proximal fibular metaphysis, age indeterminate. 3. Additional findings, as above. All radiology interpretation(s) finalized by discharge Discharge Plan Discharge Patient Disposition: Home Clinical Impression: Closed dislocation of left hip Qualifiers: Encounter type: initial encounter Qualified Code(s): S73.005A - Unspecified dislocation of left hip, initial encounter Condition: Stable Prescriptions: No Action omeprazole magnesium 20 mg capsule,delayed release(DR/EC) 20 mg PO BID montelukast 10 mg tablet 10 mg PO DAILY clopidogrel 75 mg tablet 75 mg PO DAILY cetirizine 10 mg capsule 10 mg PO DAILY promethazine 25 mg tablet 25 mg PO TID PRN (Reason: Nausea And Vomiting) levothyroxine 112 mcg capsule 100 mcg PO DAILY alprazolam 2 mg tablet 2 mg PO DAILY PRN (Reason: Anxiety) mirtazapine 15 mg tablet 7.5 mg PO DAILY colchicine [Colcrys] 0.6 mg tablet 0.6 mg PO BID Xtampza ER 27 mg cap,sprinkl,ER12hr(DONT CRUSH) 27 mg PO BID Rx Instructions: must administer with a meal/food albuterol sulfate 90 mcg/actuation aerosol powdr breath activated 2 inh inhalation Q4H PRN (Reason: Shortness Of Breath) bupropion HCl [Wellbutrin SR] 100 mg tablet sustained-release 12 hr 150 mg PO BID guaifenesin [Mucinex Fast-Max Chest-Congest] 100 mg/5 mL liquid 100 mg PO Q4H PRN (Reason: cough) Qty: 500 2RF naloxone [Narcan] 4 mg/actuation spray,non-aerosol 1 ea intranasal PRN PRN (Reason: overdose) nitroglycerin 0.4 mg tablet, sublingual 0.4 mg sublingual Q5M PRN (Reason: chest pain) Qty: 25 3RF Rx Instructions: do not exceed 3 doses per episode tizanidine 4 mg tablet 4 mg PO TID ipratropium-albuterol 0.5 mg-3 mg(2.5 mg base)/3 mL solution for nebulization 3 ml inhalation Q4H PRN (Reason: wheezing) Qty: 90 3RF (DME) acapella device See Rx Instructions .Route .MEDSUPPLY Qty: 1 0RF Rx Instructions: As directed multivitamin Tablet 1 tab PO DAILY aspirin [Adult Low Dose Aspirin] 81 mg tablet,delayed release (DR/EC) 81 mg PO DAILY cholecalciferol (vitamin D3) 25 mcg (1,000 unit) capsule 25 mcg PO DAILY metoprolol tartrate 25 mg tablet 50 mg PO BID gabapentin 800 mg tablet 800 mg PO TID (DME) Hinged Knee Brace See Rx Instructions .Route .MEDSUPPLY Qty: 1 0RF Rx Instructions: As directed Trelegy Ellipta 100-62.5-25 mcg blister with device 1 inh inhalation DAILY Qty: 60 5RF (DME) Bedside Commode See Rx Instructions .Route .MEDSUPPLY Qty: 1 0RF Rx Instructions: As directed cilostazol 100 mg tablet 100 mg PO BID Rx Instructions: TAKE 1 tab BY MOUTH TWICE A DAY simvastatin 40 mg tablet 40 mg PO DAILY Rx Instructions: TAKE 1 TABLET BY MOUTH DAILY DOSE CHANGE acetaminophen 500 mg Tablet 1,000 mg PO Q8H 15 Days Qty: 0 0RF oxycodone 15 mg tablet 15 mg PO Q4H PRN (Reason: Pain) Qty: 10 0RF Discharge Orders: Discharge ED (Routine); Ordered 12/21/23 Ordered By: Liam Kenney Referrals: Rose Beaver DO [Primary Care Provider] - 1 week Patient Instructions: Opioid Safety, Pain Management Activity Restrictions/Additional Instructions: You dislocated your left hip prosthesis, Dr. Mendosa orthopedics reduced your dislocation under conscious sedation in the ER. Please do not remove your knee immobilizer and your knee abductor pillow. Please be total nonweightbearing on your left leg. Please keep your appointment already scheduled tomorrow with Miranda at the orthopedics office. Please be very careful and moving your left leg and with activities such as rolling over. If your left hip becomes dislocated again please return to the ER. Coding Level of Care Code ED Boring Machine Feeder for Luc Rivers
[2023-12-21] MEDS: HYDROmorphone 1 mg/mL INJ 1 mL 0.5 MG IVP ×2 (12:22→14:18)
[2023-12-21] MEDS: propofol 10 mg/mL SDV 20 mL 50 MG IVP ×2 (12:55→13:00)
--- NOTE | 2023-12-21 13:00 | P.CONIM_ITS ---
Providers/Reason For Consult Consulting Physician/Specialty*: Lalo Mendosa DO/orthopedic surgery Reason for Consult*: Left periprosthetic hip dislocation of left hip bipolar hemiarthroplasty Requesting Physician: Dr. Kenney Primary Care Provider: Rose Beaver DO History of Present Illness History of Present Illness Amanda Hutchinson is a 53 year old female who presents to the emergency department today for a second within the past week for a left hip hemiarth roplasty periprosthetic dislocation. Patient's history reveals 12/09/2023she underwent a left hip gamma nail removal with Dr. Cerna and conversion of that into a left hip hemiarthroplasty bipolar with res mod femur stem. Given her shoulder stature and straight femur stem there is concern for the anterior cortex and Dr. Cerna was having patient be touchdown weightbearing. Patient had presented to the emergency department on 12/14/2023 for a left hip periprosthetic dislocation time underwent reduction under conscious sedation placed in a knee immobilizer and sent for orthopedics for follow-up was concern for a proximal fibula fracture at that time given patient's poor bone quality likely from reduction. She is here today after she was on her couch and went to get up and felt her hip pop out of place again. Given patient's recurrent dislocation now within the week as well as proximal fibula fracture orthopedics was consulted for evaluation and assistance with reduction. Patient denies any fevers or chills or any wound drainage, or any shortness of breath or chest pain. Review of Systems General: Reports: 10 or more systems reviewed and unremarkable except in HPI and below Medications/Allergies Home Medications Medication Instructions Recorded Confirmed Last Taken Type cetirizine 10 mg capsule 10 mg PO DAILY 07/24/20 12/22/23 12/08/23 History clopidogrel 75 mg tablet 75 mg PO DAILY 07/24/20 12/22/23 12/03/23 History montelukast 10 mg tablet 10 mg PO DAILY 07/24/20 12/22/23 12/08/23 History promethazine 25 mg tablet 25 mg PO TID PRN Nausea And 07/24/20 12/22/23 12/08/23 History Vomiting albuterol sulfate 90 mcg/actuation 2 inh inhalation Q4H PRN Shortness 10/10/20 12/22/23 12/07/23 History breath activated powder inhaler Of Breath oxycodone myristate 27 mg capsule 27 mg PO BID 10/10/20 12/22/23 12/08/23 History sprinkle extended release 12hr(DON'T CRUSH) (Xtampza ER) guaifenesin 100 mg/5 mL oral 100 mg (5 mL) PO Q4H PRN cough 10/03/21 12/22/23 Unknown Rx liquid (Mucinex Fast-Max Chest #500 mL Congestion) fluticasone fur. 100 mcg-umeclid 1 inh inhalation DAILY #60 ea 02/11/22 12/22/23 12/08/23 Rx 62.5 mcg-vilant 25 mcg inhalat.powder (Trelegy Ellipta) ipratropium 0.5 mg-albuterol 3 mg 3 ml inhalation Q4H PRN wheezing 03/08/22 12/22/23 12/07/23 Rx (2.5 mg base)/3 mL nebulization #90 mL soln levothyroxine 112 mcg capsule 100 mcg PO DAILY 03/08/22 12/22/23 12/08/23 History naloxone 4 mg/actuation nasal 1 ea intranasal PRN PRN overdose 03/11/22 12/22/23 Unknown History spray (Narcan) nitroglycerin 0.4 mg sublingual 0.4 mg sublingual Q5M PRN chest 03/11/22 12/22/23 Unknown Rx tablet pain #25 tabs acapella device #1 ea 06/25/22 12/22/23 Unknown Rx tizanidine 4 mg tablet 4 mg PO TID 03/11/23 12/22/23 12/08/23 History alprazolam 2 mg tablet 2 mg PO DAILY PRN Anxiety 04/29/23 12/22/23 12/07/23 History aspirin 81 mg tablet,delayed 81 mg PO DAILY 04/29/23 12/22/23 12/03/23 History release (Adult Low Dose Aspirin) bupropion HCl 100 mg tablet,12 hr 150 mg PO BID 04/29/23 12/22/23 12/08/23 History sustained-release (Wellbutrin SR) cholecalciferol (vitamin D3) 25 25 mcg PO DAILY 04/29/23 12/22/23 12/07/23 History mcg (1,000 unit) capsule colchicine 0.6 mg tablet (Colcrys) 0.6 mg PO BID 04/29/23 12/22/23 12/08/23 History gabapentin 800 mg tablet 800 mg PO TID 04/29/23 12/22/23 12/08/23 History metoprolol tartrate 25 mg tablet 50 mg PO BID 04/29/23 12/22/23 12/09/23 History mirtazapine 15 mg tablet 7.5 mg PO DAILY 04/29/23 12/22/23 12/08/23 History multivitamin 1 tab PO DAILY 04/29/23 12/22/23 12/08/23 History omeprazole magnesium 20 mg 20 mg PO BID 04/29/23 12/22/23 12/08/23 History capsule,delayed release Hinged Knee Brace #1 ea 09/24/23 12/22/23 Unknown Rx Bedside Commode #1 ea 12/03/23 12/22/23 Unknown Rx cilostazol 100 mg tablet 100 mg PO BID 12/08/23 12/22/23 12/08/23 History simvastatin 40 mg tablet 40 mg PO DAILY 12/08/23 12/22/23 12/08/23 History oxycodone 15 mg tablet 15 mg PO Q4H PRN Pain #10 tabs 12/14/23 12/22/23 Unknown Rx Allergies Allergy/AdvReac Type Severity Reaction Status Date / Time adhesive Allergy Unknown rash Verified 12/22/23 13:26 amoxicillin Allergy Unknown rash Verified 12/22/23 13:26 aspirin Allergy Unknown Verified 12/22/23 13:26 hydroxyzine Allergy rash Verified 12/22/23 13:26 morphine Allergy Unknown Verified 12/22/23 13:26 nicotine [From Nicotrol] Allergy Unknown Verified 12/22/23 13:26 nitrofurantoin Allergy ALGY-Wheezi Verified 12/22/23 13:26 [From Macrobid] ng petrolatum,white Allergy rash Verified 12/22/23 13:26 [From Vaseline] vancomycin Allergy rash Verified 12/22/23 13:26 PFSH Acute PFSH: Medical History (Updated 12/25/23 @ 21:44 by Lalo Mendosa DO) Dislocation of hip joint prosthesis Pulmonary artery abnormality Primary osteoarthritis of left knee Injury caused by twisting MCL sprain of left knee Left anterior knee pain Osteoarthritis of left hip Seizure disorder GERD (gastroesophageal reflux disease) Hypothyroidism HTN (hypertension) Peripheral arterial disease History of femoral angiogram CAD (coronary artery disease) Throat cancer Surgical History (Updated 12/22/23 @ 21:26 by LOLLY Coto) History of left hip hemiarthroplasty Date of procedure: December 09, 2023. Pre-op diagnosis: Avascular necrosis left femoral head with painful retained hardware. Procedure done: Left hip arthroplasty with revision components following removal of gamma 3 nail, long, and with supplemental adductor tenotomy. Implants: The [employer] total hip system with the moravian modular hip system with a size 155 stem by 16 mm diameter, a 21 mm proximal cone with +0 and V40, a size 43 mm outer diameter by 26 mm inner diameter universal head bipolar component and a 26 mm +0 chrome cobalt femoral head. Surgeon: Nayana Cerna MD. S/P aortobifemoral bypass surgery History of hip surgery H/O tubal ligation Family History Mother Osteoarthritis Sister Thyroid disease Social History Smoking and tobacco/nicotine status: current every day tobacco/nicotine user (0.5 ppd) cigarettes Packs smoked per day: 0.5 Years cigarettes smoked: 37 Quit status (tobacco/nicotine): considering quitting Second hand smoke exposure: Yes Alcohol intake: current Alcohol intake frequency: few times a week Substance/Drug Use: never Caregiver/support person: Yes Lives independently: Yes Household members: none Housing: Manufactured/Mobile home Marital status: / Current occupational status: disabled Pets and animals: Yes Do you think of yourself as: Straight/Heterosexual Current gender identity: Female Agree to transfusion: No Vitals/I&O/Wt Last Vital Signs Temp 98.6 F 12/21/23 11:06 Pulse 97 12/21/23 21:16 Resp 17 12/21/23 21:16 BP 113/76 12/21/23 21:16 Pulse Ox 95 12/21/23 21:16 O2 Del Method Nasal Cannula 12/21/23 12:57 Weight last 48 hrs Weight 123 lb Physical Exam Narrative: Orthopedic specific examination: Examination left lower extremity is shortened and internally rotated. Knee immobilizer is on and in place. She has sensation intact to light touch distally to the left lower extremity. She is able to wiggle her toes as well as plantarflex and dorsiflex the ankle. Was able to have patient tolerate me taking off the knee immobilizer to examine the knee there was some mild tenderness over the proximal fibula and tibial plateau laterally. Patient's dressing was left on to the left hip but there is no erythema or any signs of any saturation or signs of infection to the left hip normal appearing swelling about the left hip given recent surgery as well as dislocations. Patient does have tenderness along the midshaft of the femur as well. Pain with logroll examination Data Xray Ortho: My impression: X-rays of the left hip reviewed in person interpreted myself demonstrating a modular stem component on the left femur with a bipolar component that is superiorly and posteriorly dislocated. Radiologist's impression: XR/XR hip LT 1V wo/w pel [id number] IMPRESSION: Dislocation left hip arthroplasty hardware similar to 12/14/2023. XR/XR hip LT 2-3V wo/w pel* [id number] IMPRESSION: 1. Interval reduction of the left hip arthroplasty. 2. Acute nondisplaced periprosthetic fracture of the femoral shaft. 3. Left gluteal hematoma. Other CT: Radiologist's impression: CT/CT hip LT wo con* [id number] IMPRESSION: 1. Evidence of fracture-dislocation left hip total hip arthroplasty. 2. Fracture, fragmentation left femur as described. 3. 5 mm calcific density or fragment projects within left acetabulum. 4. Femoral head component appears to project eccentrically within acetabular cup component, suggesting disruption, displacement, narrowing, or loss of portion of the polyethylene liner of the acetabular cup component. 5. Irregular, lobular hypodense, mixed density, heterogeneous structures or collections project about left hip, left femur, left hemipelvis with gas bubble. Correlate for hematoma, seroma, abscess, Yates Jessica lesion, or other process. CT/CT knee LT wo con* [id number] IMPRESSION: 1. Essentially nondisplaced fracture of the lateral tibial plateau, likely chronic. 2. Suspected nondisplaced fracture of the proximal fibular metaphysis, age indeterminate. 3. Additional findings, as above. A&P Assessment and plan (1) Dislocation of hip joint prosthesis: Qualifiers: Encounter type: initial encounter Qualified Code(s): T84.029A - Dislocation of unspecified internal joint prosthesis, initial encounter; Z96.649 - Presence of unspecified artificial hip joint (2) History of left hip hemiarthroplasty: (3) Fracture of fibula, proximal: (4) Tibial plateau fracture, left: Plan Conscious sedation and performance of closed reduction of left hip hemiarthroplasty dislocation, with confirmatory post reduction x-rays Placed in knee immobilizer to the left lower extremity NWB to LLE FOllowup with Ortho THis week Strict maintenance of knee immobilizer and recommend no flexion of the knee Posterior hip precautions Pain control CT scans prior to reduction were reviewed and demonstrate proximal fibula lateral plateau fracture that is nondisplaced would recommend nonoperative treatment there does appear to be disruption of the anterior cortex. Case was discussed in detail with Dr. Cerna her surgeon. Procedure in detail: Closed hip reduction CPT code Patient seen and examined in the emergency department confirmed to having a left posterior superior hip dislocation status post hip hemiarthroplasty. At this point in time pt understands diagnosis agrees to proceed with hip reduction. Patient underwent conscious sedation by the emergency department team once appropriately anesthetized ED physician assisted with stabilization of the hemipelvis and subsequently performed a reduction maneuver of the left hip with hip flexion adduction and internal rotation followed by gross traction and subsequent external rotation with palpable reduction. I then brought in the x- ray and confirmed with multiple orthogonal images the left periprosthetic hip dislocation was satisfactorily reduced. Patient was placed into a knee immobilizer given appropriate discharge instructions to the emergency department and will follow-up in the orthopedic office in this week. Patient tolerated pr ocedure without any complications. MDM: Patient is a 53-year-old female with an unfortunate complicated course postoperatively after a hip nail removal transition to a left hip hemiarthroplasty. She has had her second hip dislocation and on my examination during conscious sedation had noticeable instability. She did have CT scans performed prior to just today violation/disruption of the anterior cortex of the femur the stem given the straight stem as well as patient's shorter stature. This was originally being monitored by her surgeon Dr. Nair and just patient was following posterior hip precautions and touchdown weightbearing to left lower extremity. Unfortunately just getting out of her cast she has dislocated her hip twice now. She successfully underwent closed reduction of the left hip hemiarthroplasty today. She is placed in a knee immobilizer and understands. Knee immobilizer abduction pillow as well as nonweightbearing to the left lower extremity. She is set to follow-up with Dr. Cerna's nurse practitioner Miranda this week. I did discuss the case in detail with Dr. Cerna as well will defer to her discretion for further management for this patient. Patient understands and agrees with current plan. All questions answered. Coding Level of Care Code Acute Code for Chg Fwd Diagnoses Dislocation of hip joint prosthesis, initial encounter T84.029A; Z96.649 Encounter type: initial encounter History of left hip hemiarthroplasty Z96.642 Fracture of fibula, proximal S82.839A Tibial plateau fracture, left S82.142A
--- NOTE | 2023-12-21 13:21 | XRR_ITS ---
PROCEDURE INFORMATION: Exam: XR Left Hip Exam date and time: 12/21/2023 1:02 PM Age: 53 years old Clinical indication: Hip pain; Left hip; Prior surgery; Surgery date: 3-7 days post-operative; Surgery type: Lt hip; Additional info: Post reduction lt hip TECHNIQUE: Imaging protocol: Radiologic exam of the left hip. Views: 2 or 3 views hip with pelvis when performed. COMPARISON: CT hip LT wo con* [id number] 12/21/2023 11:59 AM FINDINGS: Bones/joints: Interval reduction of the long-stem total left hip arthroplasty. There is eccentric positioning of the distal femoral stem the tip in the subcortical region and an associated nondisplaced fracture of the anterior femoral shaft (for example, image 23 of series [address] of the hip). Visualized left hemipelvis is grossly intact. There is mild fragmentation in the region of the greater trochanter. Soft tissues: Soft tissue edema. Please see report of recent hip for findings regarding gluteal hematoma. XR/XR hip LT 2-3V wo/w pel* [id number] IMPRESSION: 1. Interval reduction of the left hip arthroplasty. 2. Acute nondisplaced periprosthetic fracture of the femoral shaft. 3. Left gluteal hematoma.
--- NOTE | 2023-12-21 13:34 | PC.PT ---
Order not filled. Therapy does not stock abduction pillows. Order was for abduction pillow placement.
[2023-12-21] MEDS: oxyCODONE-APAP 5-325 mg Tablet 1 TAB PO ×2 (17:32→21:13)
--- NOTE | 2023-12-24 10:16 | PC.SOCIAL ---
HH referral Consult received to arrange HH. Patient recently d/c from the hospital and HH was set up with [facility]; called and spoke with [facility], they still have patient on services.
== END 2023-12-21 21:19 | disposition home or self-care (01) ==
PROVIDERS: Emergency Provider Emergency Medicine; PCP Family Medicine
DX: T84.021A Dislocation of internal left hip prosthesis, initial encounter (principal); Z79.02 Long term (current) use of antithrombotics/antiplatelets; Z79.82 Long term (current) use of aspirin; S82.145A Nondisplaced bicondylar fracture of left tibia, initial encounter for closed fracture; F17.210 Nicotine dependence, cigarettes, uncomplicated; I10 Essential (primary) hypertension; I25.10 Atherosclerotic heart disease of native coronary artery without angina pectoris; Z85.89 Personal history of malignant neoplasm of other organs and systems; Z96.642 Presence of left artificial hip joint
CPT/HCPCS: 27265; 73501; 73502; 73700; 96374; 96375; 96376; 99285; J1170; J2405; J2704; J3010

== ENCOUNTER → 2023-12-22 13:23 | Outpatient (BNVA) | payer MEDICARE, MEDICAID, SELFPAY | PROVIDERS: PCP Family Medicine; Visit Provider Nurse Practitioner | DX: Z96.642 Presence of left artificial hip joint (principal); Y79.2 Prosthetic and other implants, materials and accessory orthopedic devices associated with adverse incidents; T84.021A Dislocation of internal left hip prosthesis, initial encounter | CPT/HCPCS: 99024 ==

== ENCOUNTER 2024-01-01 18:42 | Inpatient (IN) | payer MEDICARE, MEDICAID, SELFPAY ==
[2024-01-01] VITALS (19 sets, daily range): BP systolic 91–142; BP diastolic 57–90; PULSE 99–125; RESP 15–18; TEMP 36.1–37.2; O2SAT 95–100; BMI 22.4
[2024-01-01] MEDS: gabapentin 300 mg Capsule PO (14:09)
[2024-01-01] MEDS: CELEcoxib 200 mg Capsule 400 MG PO (14:09)
[2024-01-01] MEDS: sodium chloride 0.9% 1,000 ML 30 ML IV (14:10)
[2024-01-01] MEDS: acetaminophen 1,000 MG/100 ML PIGGYBACK 400 MG IV (14:13)
[2024-01-01] MEDS: HYDROmorphone 1 mg/mL INJ 1 mL 0.5 MG IVP ×2 (14:20→23:09)
--- NOTE | 2024-01-01 15:07 | P.ANESASSM_ITS ---
Pre-Anesthetic Assessment Height/Weight: Height 1.57 m Weight 55.792 kg Temp Pulse Resp BP Pulse Ox O2 Del Method 97.6 F 99 18 142/71 96 Room Air 01/01/24 13:43 01/01/24 13:43 01/01/24 13:43 01/01/24 13:43 01/01/24 13:43 01/01/24 14:34 Operation Date: 01/01/24 14:35 Proposed Procedures p CONVERSION FROM LEFT HEMIARTHROPLASTY TO TOTAL HIP ARTHROPLASTY(Left) - Nayana Cerna MD Familial anesthetic complications: none Was Beta Milly taken within 24 hours: Yes Was Clonidine taken within 24 hours: N/A Last intake: Intake Last Liquid Date 01/01/24 Last Liquid Time 08:00 Last Solid Date 12/31/23 Last Solid Time 19:00 Social Tobacco and No alcohol Exam alert, oriented x 3 and regular rate & rhythm Airway Submandibular: within normal limits Cervical ROM: within normal limits Mallampati: Class II Dentition: chipped Pulmonary Chronic Obstructive Pulmonary Disease CV/HEM Coronary Artery Disease, Hypertension, Myocardial Infarction and Peripheral Vascular Disease GI Gastroesophageal Reflux Disease [facility] [place] Osteoarthritis/DJD Anesthetic Plan ASA status: 3 Anesthesia: Regional (specify below) (SAB) Medications/Allergies Home Medications Medication Instructions Recorded Confirmed Last Taken Type cetirizine 10 mg capsule 10 mg PO DAILY 07/24/20 12/31/23 12/31/23 History clopidogrel 75 mg tablet 75 mg PO DAILY 07/24/20 12/31/23 12/26/23 History montelukast 10 mg tablet 10 mg PO DAILY 07/24/20 12/31/23 12/31/23 History promethazine 25 mg tablet 25 mg PO TID PRN Nausea And 07/24/20 12/31/23 12/31/23 History Vomiting albuterol sulfate 90 mcg/actuation 2 inh inhalation Q4H PRN Shortness 10/10/20 12/31/23 12/31/23 History breath activated powder inhaler Of Breath oxycodone myristate 27 mg capsule 27 mg PO BID 10/10/20 12/31/23 01/01/24 08:00 History sprinkle extended release 12hr(DON'T CRUSH) (Xtampza ER) guaifenesin 100 mg/5 mL oral 100 mg (5 mL) PO Q4H PRN cough 10/03/21 12/31/23 Unknown Rx liquid (Mucinex Fast-Max Chest #500 mL Congestion) fluticasone fur. 100 mcg-umeclid 1 inh inhalation DAILY #60 ea 02/11/22 12/31/23 12/31/23 Rx 62.5 mcg-vilant 25 mcg inhalat.powder (Trelegy Ellipta) ipratropium 0.5 mg-albuterol 3 mg 3 ml inhalation Q4H PRN wheezing 03/08/22 12/31/23 12/31/23 Rx (2.5 mg base)/3 mL nebulization #90 mL soln levothyroxine 112 mcg capsule 100 mcg PO DAILY 03/08/22 12/31/23 12/31/23 History naloxone 4 mg/actuation nasal 1 ea intranasal PRN PRN overdose 03/11/22 12/31/23 Unknown History spray (Narcan) nitroglycerin 0.4 mg sublingual 0.4 mg sublingual Q5M PRN chest 03/11/22 12/31/23 Unknown Rx tablet pain #25 tabs acapella device #1 ea 06/25/22 12/22/23 Unknown Rx tizanidine 4 mg tablet 4 mg PO TID 03/11/23 12/31/23 12/31/23 History alprazolam 2 mg tablet 2 mg PO DAILY PRN Anxiety 04/29/23 12/31/23 12/31/23 History aspirin 81 mg tablet,delayed 81 mg PO DAILY 04/29/23 12/31/23 12/31/23 08:00 History release (Adult Low Dose Aspirin) bupropion HCl 100 mg tablet,12 hr 150 mg PO BID 04/29/23 12/31/23 12/31/23 History sustained-release (Wellbutrin SR) cholecalciferol (vitamin D3) 25 25 mcg PO DAILY 04/29/23 12/31/23 12/31/23 History mcg (1,000 unit) capsule colchicine 0.6 mg tablet (Colcrys) 0.6 mg PO BID 04/29/23 12/31/23 12/31/23 History gabapentin 800 mg tablet 800 mg PO TID 04/29/23 12/31/23 12/31/23 History metoprolol tartrate 25 mg tablet 50 mg PO BID 04/29/23 12/31/23 12/31/23 History mirtazapine 15 mg tablet 7.5 mg PO DAILY 04/29/23 12/31/23 12/31/23 History multivitamin 1 tab PO DAILY 04/29/23 12/31/23 12/31/23 History omeprazole magnesium 20 mg 20 mg PO BID 04/29/23 12/31/23 12/31/23 History capsule,delayed release Hinged Knee Brace #1 ea 09/24/23 12/22/23 Unknown Rx Bedside Commode #1 ea 12/03/23 12/22/23 Unknown Rx cilostazol 100 mg tablet 100 mg PO BID 12/08/23 12/31/23 12/31/23 History simvastatin 40 mg tablet 40 mg PO DAILY 12/08/23 12/31/23 12/31/23 History oxycodone 15 mg tablet 15 mg PO Q4H PRN Pain #10 tabs 12/14/23 12/31/23 01/01/24 08:00 Rx Allergies Allergy/AdvReac Type Severity Reaction Status Date / Time adhesive Allergy Unknown rash Verified 12/22/23 13:26 amoxicillin Allergy Unknown rash Verified 12/22/23 13:26 aspirin Allergy Unknown Verified 12/22/23 13:26 hydroxyzine Allergy rash Verified 12/22/23 13:26 morphine Allergy Unknown Verified 12/22/23 13:26 nicotine [From Nicotrol] Allergy Unknown Verified 12/22/23 13:26 nitrofurantoin Allergy ALGY-Wheezi Verified 12/22/23 13:26 [From Macrobid] ng petrolatum,white Allergy rash Verified 12/22/23 13:26 [From Vaseline] vancomycin Allergy rash Verified 12/22/23 13:26 Current Medications Generic Name Dose Route Start Last Admin Trade Name Freq PRN Reason Stop Dose Admin Hydromorphone HCl 0.5 mg 01/01/24 13:05 01/01/24 14:20 Hydromorphone 1 Mg/Ml Inj 1 Ml IVP 0.5 mg ONCE PRN Administration For preop pain/anxiety Sodium Chloride 1,000 mls @ 30 mls/hr 01/01/24 13:15 01/01/24 14:10 Sodium Chloride 0.9% IV 01/02/24 13:14 30 mls/hr .Q24H YONI Administration PFSH Anesthesia Medical History (Updated 12/25/23 @ 21:44 by Lalo Mendosa DO) Dislocation of hip joint prosthesis Pulmonary artery abnormality Primary osteoarthritis of left knee Injury caused by twisting MCL sprain of left knee Left anterior knee pain Osteoarthritis of left hip Seizure disorder GERD (gastroesophageal reflux disease) Hypothyroidism HTN (hypertension) Peripheral arterial disease History of femoral angiogram CAD (coronary artery disease) Throat cancer Surgical History (Updated 12/22/23 @ 21:26 by LOLLY Coto) History of left hip hemiarthroplasty Date of procedure: December 09, 2023. Pre-op diagnosis: Avascular necrosis left femoral head with painful retained hardware. Procedure done: Left hip arthroplasty with revision components following removal of gamma 3 nail, long, and with supplemental adductor tenotomy. Implants: [employer] total hip system with the spiritism modular hip s ystem with a size 155 stem by 16 mm diameter, a 21 mm proximal cone with +0 and V40, a size 43 mm outer diameter by 26 mm inner diameter universal head bipolar component and a 26 mm +0 chrome cobalt femoral head. Surgeon: Nayana Cerna MD. S/P aortobifemoral bypass surgery History of hip surgery H/O tubal ligation Family History Mother Osteoarthritis Sister Thyroid disease Social History Smoking and tobacco/nicotine status: current every day tobacco/nicotine user (0.5 ppd) cigarettes Packs smoked per day: 0.5 Years cigarettes smoked: 37 Quit status (tobacco/nicotine): considering quitting Second hand smoke exposure: Yes Alcohol intake: current Alcohol intake frequency: few times a week Substance/Drug Use: never Caregiver/support person: Yes Lives independently: Yes Household members: none Housing: Manufactured/Mobile home Marital status: / Current occupational status: disabled Pets and animals: Yes Do you think of yourself as: Straight/Heterosexual Current gender identity: Female Agree to transfusion: No Data Anesthesia Cardiac Studies: Sestamibi Stress Test (Cardiology) 08/21
--- NOTE | 2024-01-01 15:47 | W.PM.OPSUD ---
Surgery/Procedure H&P Update DATE OF PROCEDURE: January 01, 2024 DATE H&P PERFORMED: 12/22/23 H&P UPDATE INFORMATION: I have reviewed H&P completed within last 30 days, I have examined patient prior to procedure, No changes to prior documentation and [place] is [place] [facility] [place] indicated PLANNED PROCEDURE: Operation Date: 01/01/24 14:35 Proposed Procedures p CONVERSION FROM LEFT HEMIARTHROPLASTY TO TOTAL HIP ARTHROPLASTY(Left) - Nayana Cerna MD Related Problem List Diagnoses (1) Dislocation of hip joint prosthesis: Qualifiers: Encounter type: initial encounter Qualified Code(s): T84.029A - Dislocation of unspecified internal joint prosthesis, initial encounter; Z96.649 - Presence of unspecified artificial hip joint
[2024-01-01] MEDS: ceFAZolin 2,000 MG in sodium chloride 0.9% (plus) 50 ML 100 MG IV ×2 (18:10→22:53)
[2024-01-01] MEDS: tranexamic acid 1,000 mg/10mL SDV 1000 MG IV (18:30)
[2024-01-01] MEDS: ceFAZolin 1,000 mg SDV 1000 MG IRRIGATION (21:40)
--- NOTE | 2024-01-01 22:41 | XR_ITS ---
WS: [id number] Pelvis,, AP and lateral views of the left thigh and femur, 01/01/2024 Clinical Data: Status post revision left total hip Comparison: Left thigh and femur, 12/21/2023 Findings: The left hip arthroplasty shows that the acetabular portion is in good position and is not dislocated . The long stem of the arthroplasty is occupying the proximal three quarters of the intramedullary ca nal of the femur. The small cortical fracture at the distal tip of the long stem of the arthroplasty prosthesis is not visualized on this exam. There is subcutaneous air adjacent to the femoral neck and in the lateral alaniz bcutaneous tissue adjacent to the greater trochanter. Impression: Satisfactory revision of left hip arthroplasty.
--- NOTE | 2024-01-01 22:51 | P.OP_ITS ---
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 from gamma nail with anterior cortical violation Post-op diagnosis: Recurrent left hip dislocation following revision hip arthroplasty from gamma nail with anterior cortical violation Post-op findings: No obvious instability of the left hip Procedure done: Revision left hip total arthroplasty utilizing the [employer] mandaen modular total hip system Implants: The [employer] total hip system with the mandaen modular hip system with a size 235 mm curved stem by 14 mm diameter, a 23 mm proximal cone with +0 and V40, a size 46 mm with C alpha code Trident 2 TriTanium solid back acetabular shell, and MDM cementless liner size 36 mm inner diameter by C alpha code, and MDM insert for the MDM liner with a 22.2 mm inner diameter by a 36 mm outer diameter fitting the size 36 C cementless liner, and a +0 mm offset by 22.2 mm outer diameter femoral head Specimens removed/disposition: Prior prosthesis removed Pathology: Cultures sent Surgeon: Nayana Cerna MD Remote Control Mirror Installer: [facility] operating room technicians Anesthesia: Spinal (Converted to general per LMA, ASA 3) Estimated blood loss (mL): 200 IV fluids (mL): 1,700 IV fluids: 250 mL liters albumin Urine output (mL): 1,100 Findings: There is no obvious instability to the hip. Following revision, the hip was stable at 90 degrees of flexion with 80 degrees of internal rotation and 20 degrees of adduction. It was also stable to toe hang and external rotation. Leg lengths appear to be restored. Was some concern about the anterior cortex of the distal femur and spite of the curved prosthesis utilized. Condition: stable Disposition: PACU (Then to floor for postoperative rehabilitation and pain management) Brief History: This 53-year-old woman presented initially with complaints of severe left hip pain. The patient had previously undergone open reduction internal fixation of an intertrochanteric fracture in 2019 utilizing a long trochanteric gamma 3 nail. This was placed by Dr. Hatch. The patient complained of pain in her left hip since the time of her surgery. She was seen in my office and demonstrated difficulty standing and walking. She was having significant limitations in her activities of daily living. Therefore, on December 09, 2023, she underwent left hip arthroplasty with revision components following removal of the gamma 3 nail and supplemental adductor tenotomy. Unfortunately, the patient suffered 2 dislocations following this revision. It was noted at the time of her initial surgery that her acetabulum was quite shallow, but her cartilage was good and given her young age, it was elected to proceed with bipolar hip arthroplasty. Also of note, the patient had significant curvature to her femur which was accentuated by her short stature. It was noted that she had violated the cortex anteriorly and a small location with her previous stem, therefore, decision was made to remove the stem and replace it with a longer curved stem. Procedure: Patient was brought to the operating theater. She was transferred to the operating room table and subsequently administered a spinal anesthetic which was subsequently converted to a general per LMA, ASA 3. Following administration of adequate anesthesia, the patient was placed in full lateral position and held in position with a pegboard. The patient's left lower extremity was then prepped and draped in usual fashion utilizing DuraPrep. It was draped free. Following prepping and draping a surgical pause was performed. At the time of surgical pause, we identified the site and side of surgery. We also identified the patient and preoperative surgical markings. Confirmation was made of equipment availability. Additionally, the patient's preoperative IV antibiotic, Ancef 2 g, was confirmed as being given in a timely fashion and being the appropriate antibiotic. Following the surgical pause, an incision was made through the patient's previous incision which was over the greater trochanter. The incision continued proximally and distally as necessary to allow access to the hip joint. Hemostasis was obtained using electrocautery. The tensor fascia aleah was incised longitudinally. There was clear fluid in the area consistent with the patient's postoperative trauma, but there was no evidence of purulence. Sciatic nerve was identified and protected throughout the surgical procedure. A Charnley U retractor was placed after the tensor fascia aleah had been incised longitudinally, and the sciatic nerve had been identified. The hip was internally rotated, and the patient's posterior scar tissue as well as the short external rotators were incised to enter the hip joint. There was no longer piriformis muscle identifiable. The capsule was entered in a T-type fashion with the edges being tagged, and the hip was dislocated. The patient's previous implant was removed with the mandaen modular extraction system. This was able to be removed in 1 piece. Once the bipolar hip implant was removed, attention was directed to the femur to prepare it for a curved mandaen modular stem. Fluoroscopy was used while this was prepared. Initially, a guidewire was passed and flexible reamers were to be utilized. The flexible reamers however wanted to further compromise the anterior cortex of the femur, therefore, reaming was not accomplished in this area. [employer] modular reamers were noted to be straight, and these were also not utilized. Decision was made to use the 195 mm x 16 mm curved mandaen modular stem. Attempt was made to pass this, but under fluoroscopic guidance, there again was concern for compromise of the anterior cortex as the curve was not sufficient to match the patient's femur. Therefore, the stem was removed, and after careful thought, the decision was made to decrease the size of the stem from a 16 mm diameter to a 14 mm diameter and also to increase the length from 195 mm to 235 mm to assure that we passed the compromised area of the anterior cortex. The stem was passed under fluoroscopic guidance. There is still was concerned regarding the anterior cortex, but it was not felt that the stem had penetrated the cortex. Once the stem was in position. Attention was directed to the acetabulum. The femur was retracted anteriorly. Soft tissues were retracted. We then began reaming. As noted at the time of the patient's previous surgery, the acetabulum was quite small. The smallest cup available was a 46 mm, and we were able to ream to a 45 mm and subsequently touch the rim with a 46 mm. The size 46 Trident solid back acetabular shell was then impacted into position. This had a see alpha code. Once this was in position, the cementless liner matching the acetabulum with a 36 mm inner diameter and see alpha code was impacted carefully into position. Care was taken to make sure that it did not seat incorrectly. The liner was noted to seat nicely, and at that time, we elected to begin trial reductions. Once again, we elected to increase the size of the proximal cone from a 21 mm to a 23 mm. This site was a +0. We reamed for this, and placed a trial cone. Trial reductions were accomplished, and there was significant manipulation of the proximal colon as well as leg lengths to provide the patient appropriate range of motion and stability. The muscles were quite tight secondary to the patient's long-term avascular process and lack of use of this leg. We were, however, able to obtain stability and leg length that was felt to be appropriate. This was accomplished with the 23 mm +0 mandaen modular cone with appropriate version. The trial was removed and the actual implant was impacted into position and tightened appropriately. At that time, the combination of the 22.2 mm femoral head with a +0 mm offset was impacted into the MDM liner with a 22.2 mm inner diameter by 36 mm outer diameter matching the MDM cementless liner. This was impacted into position and the hip was reduced. Once again was placed through range of motion and found to be stable. Leg lengths were also felt to be satisfactory. Being satisfied with the prosthesis, attention was directed to closure. Closure was accomplished with 0 Vicryl in the capsular tissues. Tensor fascia aleah was closed with 0 Vicryl in an interrupted fashion. The subcutaneous tissues were closed the combination of 0 Vicryl and 2-0 Monocryl. Vancomycin powder and a Gelfoam thrombin mixture was placed into the wound as well. The skin was closed with a running 3-0 Monocryl followed by Dermabond Phi and Tami. The patient was placed in an abduction pillow. She was returned the Recovery Room in a satisfactory condition and will be discharged to the floor for postoperative rehabilitation and pain management. There were no complications. Related Problem List Diagnoses (1) Dislocation of hip joint prosthesis: (2) S/P total left hip arthroplasty: (3) Avascular necrosis of bone of left hip:
[2024-01-02] VITALS (31 sets, daily range): BP systolic 90–113; BP diastolic 45–67; PULSE 102–133; RESP 14–21; TEMP 35.8–37.5; O2SAT 94–100; BMI 21.7; BMI 22.1
[2024-01-02] MEDS: acetaminophen 1,000 MG/100 ML PIGGYBACK 400 MG IV ×3 (00:14→15:02)
[2024-01-02] MEDS: ALPRAZolam 0.5 mg Tablet 2 MG PO ×2 (00:16→22:58)
[2024-01-02] MEDS: ondansetron 2 mg/ML SDV 2 mL 4 MG IVP (00:21)
--- NOTE | 2024-01-02 01:07 | ANE.PACU2 ---
Inpatient post-anesthesia follow up: Airway intact: Yes Vital signs: Temperature 96.4 F Pulse Rate 117 Respiratory Rate 19 Blood Pressure 95/59 Pulse Oximetry 97 Oxygen Delivery Me thod Room Air Oxygen Flow Rate 6 Fraction of Inspir ed Oxygen Hydration adequate: Yes Nausea and vomiting: No Pain level: 3 Mental status: Altered (sedated)
[2024-01-02] MEDS: oxyCODONE 5 mg IR Tab/Cap 10 MG PO (01:58)
[2024-01-02] MEDS: ketorolac 30 mg/mL INJ IVP (04:03)
[2024-01-02] MEDS: oxyCODONE 5 mg IR Tab/Cap 15 MG PO ×4 (04:03→18:35)
--- NOTE | 2024-01-02 04:52 | PC.NURSE ---
BREAKTHROUGH PAIN patient was writhing, crying out that she was in pain. press writer had administered 10mg oxycodone an hour and a half earlier. dosing was q4hour. contacted surgeon Dr Cerna in regard to uncontrolled pain. received telephone order for IVP toradol x one, po toradol prn, and increase po oxy dose to home dose of 15mg q4 prn with early one time dose 15mg oxy now. press writer administered IVP toradol and po oxy, then placed a heat pack on patients back at her request. patient plan of care continued at this time.
[2024-01-02 05:03] LABS: Basophils # 0.1 10^3/uL (0.0-0.1); Basophils % 0.6 %; Eosinophils % 0.3 %; Hematocrit 26.2 % (36-47); Lymphocytes # 2.7 10^3/uL (0.8-4.8); Lymphocytes % 27.2 %; Mean Corpuscular HGB Conc 29.4 g/dL (30-55); Mean Corpuscular Hemoglobin 28.9 pg (27-33); Mean Corpuscular Volume 98.5 fl (85-98); Mean Platelet Volume 8.9 fL (7.4-10.4); Monocytes # 0.9 10^3/uL (0.2-0.9); Monocytes % 8.9 %; Neutrophils # 6.31 10^3/uL (1.8-7.7); Neutrophils % 62.5 %; Nucleated Red Blood Cells % 0 %; Platelet Count 230 10^3/cmm (157-399); Red Blood Count 2.66 10^6/uL (3.85-5.65); Red Cell Distribution Width 17.2 % (12.1-15.1); White Blood Count 10.09 10^3/uL (3.29-11.43)
[2024-01-02 05:22] LABS: Anion Gap 9.8 (5-19); Blood Urea Nitrogen 9 mg/dL (6-20); Calcium 8.3 mg/dL (8.5-10.5); Carbon Dioxide 23 mmol/L (22-29); Chloride 110 mmol/L (98-107); Creatinine Clr Calc Pharmacy 92.7354; Glomerular Filtration Rate 104.6 mL/min (90-130); Glucose 109 mg/dL (65-115); Osmolality Calculated 287 mOsm/kg (285-295); Potassium 3.8 mmol/L (3.5-5.1); Sodium 139 mmol/L (136-145)
[2024-01-02] MEDS: ceFAZolin 2,000 MG in sodium chloride 0.9% (plus) 50 ML 100 MG IV ×3 (06:44→22:57)
[2024-01-02] MEDS: levothyroxine 100 mcg Tablet PO (06:47)
[2024-01-02] MEDS: colchicine 0.6 mg Tablet 0.599999999999999978 MG PO ×2 (08:29→17:05)
[2024-01-02] MEDS: multivitamin therapeutic Tablet 1 TAB PO (08:29)
[2024-01-02] MEDS: buPROPion SR (12 HR) 100 mg Tablet 150 MG PO ×2 (08:29→17:05)
[2024-01-02] MEDS: pantoprazole DR 40 mg Tablet PO ×2 (08:29→17:05)
[2024-01-02] MEDS: cholecalciferol (vitamin D3) 1,000 unit Tablet 1000 UNIT PO (08:29)
[2024-01-02] MEDS: tizanidine 4 mg Tablet PO ×3 (08:29→21:11)
[2024-01-02] MEDS: metoprolol tartrate 25 mg Tablet 50 MG PO (08:30)
[2024-01-02] MEDS: montelukast sodium 10 mg Tablet PO (08:30)
[2024-01-02] MEDS: calcium carbonate 500 mg Chew Tablet 1000 MG PO ×2 (08:30→17:05)
[2024-01-02] MEDS: loratadine 10 mg Tablet PO (08:30)
[2024-01-02] MEDS: iron polysaccharide complex 150 mg Capsule PO ×2 (08:31→17:05)
[2024-01-02] MEDS: [UNRECOGNIZED DRUG - REMARK] 27 EACH PO (08:31)
[2024-01-02] MEDS: aspirin 325 mg EC Tablet PO (08:31)
[2024-01-02] MEDS: cilostazol 100 mg Tablet PO (08:31)
[2024-01-02] MEDS: sennosides-docusate Tablet 2 TAB PO ×2 (08:31→17:05)
[2024-01-02] MEDS: atorvastatin 40 mg Tablet 20 MG PO (08:31)
[2024-01-02] MEDS: gabapentin 400 mg Capsule 800 MG PO (08:31)
[2024-01-02] MEDS: clopidogrel 75 mg Tablet PO (08:49)
--- NOTE | 2024-01-02 09:11 | PC.CHAP ---
Pastoral Care Encounter/Spiritual Assessment Type of Contact [] Declined polishing machine operator visit [] Patient/Family/Request visit [] Outpatient visit [] Follow-up visit [] Physician referral [] Code/Alert [x] Routine visit [] Staff referral [] Actively dying [] Patient sleeping [] Family support [] [] Out of room [] Palliative care [] [] Receiving care in room [] Pre-surgical visit [] Trauma [] Long length of stay [] ICU visit [] Other: Relational/Emotional Strength [x] Patient feels connected with others/family/visitors/staff [] Distress [] Loneliness/isolation [] Abandonment Spirituality of Patient [x] Person of Beatriz [] Attends Anglican of their Beatriz [x] Believes in Prayer [] Reads Bible or Samaritan materials [] There are Spiritual issues to be addressed Electronic Musical Instrument Repairer Interventions x] Prayer [x] Active listening [] Non-anxious presence [x] Spiritual/emotional support [] Crisis/trauma care [] Spiritual counseling [] Bereavement support [] Provided bereavement packet [] Provided Bible/devotional materials [] Provided toy/stuffed animal, coloring book to patient or family member [] Provided Communion [] Anointing/[place] [] Salvation [x] Completed spiritual assessment [] Other: Impact on Illness or Injury [] Angry [] Fearful [] Anxious [] Often cries [] Exhaustion [] Unable to work [] Unable to attend hinduism [] Unable to walk/stand [] Unable to read [] Unable to drive [] Unable to eat/drink [] Unable to sleep [] Unable to be with family [] Patient intubated [] Other: Summary Time spent with patient 5 min
--- NOTE | 2024-01-02 11:00 | ECG_ITS ---
[facility] Test Date: 2024-01-02 Pat Name: Amanda Hutchinson Department: Room: 261 Gender: Female Book Sewer: : 1970 Requested By: Jorge Nina Order Number: [id number] Alexx MD: Didier Calloway M.D. Measurements Intervals Albert Rate: 97 P: 60 ME: 158 QRS: 33 QRSD: 87 T: 52 QT: 354 QTc: 451 Interpretive Statements SINUS RHYTHM Compared to ECG 11/19/2018 17:32:26 Sinus tachycardia no longer present T-wave abnormality no longer present Electronically Signed On 01-02-2024 17:07:05 CDT by Didier Calloway M.D. [email or web address]
--- NOTE | 2024-01-02 11:01 | P.CONIM_ITS ---
Providers/Reason For Consult 2 Consulting Physician/Specialty*: Jorge Hardy MD, Hospitalist Reason for Consult*: Medical management Requesting Physician: Dr. Cerna Attending Physician: Lalo Mendosa DO Primary Care Provider: Rose Beaver DO History of Present Illness History of Present Illness Amanda Hutchinson is a 53 year old female who I been asked to participate in care for medical management. She was admitted December 31, and underwent a left hip revision secondary to instability of the left hip. Left hip total arthroplasty was done without significant complication. Estimated blood loss 200 cc. Since that time she reports some dizziness today. Nurses have related some lower blood pressures, and higher heart rate. She denies any nausea, chest pain or shortness of breath. I reviewed some of her medicines with her and she is convinced her Neurontin should only be 300 mg 3 times daily. Review of Systems 2 General: Reports: 10 or more systems reviewed and unremarkable except in HPI and below Card: Denies: chest pain Resp: Denies: dyspnea GI: Denies: abdominal pain, nausea, hematochezia or melena Medications/Allergies Home Medications Medication Instructions Recorded Confirmed Last Taken Type cetirizine 10 mg capsule 10 mg PO DAILY 07/24/20 01/02/24 12/31/23 History clopidogrel 75 mg tablet 75 mg PO DAILY 07/24/20 01/02/24 12/26/23 History montelukast 10 mg tablet 10 mg PO DAILY 07/24/20 01/02/24 12/31/23 History promethazine 25 mg tablet 25 mg PO TID PRN Nausea And 07/24/20 01/02/24 12/31/23 History Vomiting albuterol sulfate 90 mcg/actuation 2 inh inhalation Q4H PRN Shortness 10/10/20 12/31/23 12/31/23 History breath activated powder inhaler Of Breath oxycodone myristate 27 mg capsule 27 mg PO BID 10/10/20 01/02/24 01/01/24 History sprinkle extended release 12hr(DON'T CRUSH) (Xtampza ER) fluticasone fur. 100 mcg-umeclid 1 inh inhalation DAILY #60 ea 02/11/22 01/02/24 12/31/23 Rx 62.5 mcg-vilant 25 mcg inhalat.powder (Trelegy Ellipta) ipratropium 0.5 mg-albuterol 3 mg 3 ml inhalation Q4H PRN wheezing 03/08/22 01/02/24 12/31/23 Rx (2.5 mg base)/3 mL nebulization #90 mL soln levothyroxine 112 mcg capsule 100 mcg PO DAILY 03/08/22 01/02/24 12/31/23 History naloxone 4 mg/actuation nasal 1 ea intranasal PRN PRN overdose 03/11/22 01/02/24 Unknown History spray (Narcan) nitroglycerin 0.4 mg sublingual 0.4 mg sublingual Q5M PRN chest 03/11/22 01/02/24 Unknown Rx tablet pain #25 tabs acapella device #1 ea 06/25/22 01/02/24 Unknown Rx tizanidine 4 mg tablet 4 mg PO TID PRN MUSCLE SPASMS 03/11/23 01/02/24 12/08/23 History alprazolam 2 mg tablet 2 mg PO DAILY PRN Anxiety 04/29/23 01/02/24 12/31/23 History aspirin 81 mg tablet,delayed 81 mg PO DAILY 04/29/23 01/02/24 12/31/23 History release (Adult Low Dose Aspirin) cholecalciferol (vitamin D3) 25 25 mcg PO DAILY 04/29/23 01/02/24 12/31/23 History mcg (1,000 unit) capsule colchicine 0.6 mg tablet (Colcrys) 0.6 mg PO BID 04/29/23 01/02/24 12/31/23 History mirtazapine 15 mg tablet 15 mg PO BEDTIME 04/29/23 01/02/24 12/31/23 History multivitamin 1 tab PO DAILY 04/29/23 01/02/24 12/31/23 History omeprazole magnesium 20 mg 20 mg PO BID 04/29/23 01/02/24 12/31/23 History capsule,delayed release Hinged Knee Brace #1 ea 09/24/23 01/02/24 Unknown Rx Bedside Commode #1 ea 12/03/23 01/02/24 Unknown Rx cilostazol 100 mg tablet 100 mg PO BID 12/08/23 01/02/24 12/31/23 History simvastatin 40 mg tablet 40 mg PO DAILY 12/08/23 01/02/2424 History oxycodone 15 mg tablet 15 mg PO Q4H PRN Pain #10 tabs 12/14/23 01/02/24 01/01/24 Rx bupropion HCl 150 mg tablet,12 hr 150 mg PO BID 01/02/24 01/02/24 12/31/23 History sustained-release gabapentin 300 mg capsule 300 mg PO TID 01/02/24 01/02/24 12/31/23 History guaifenesin 100 mg/5 mL oral liquid 200 mg PO Q4H PRN COUGH AND 01/02/24 01/02/24 Unknown History CONGESTION metoprolol tartrate 50 mg tablet 50 mg PO BID 01/02/24 01/02/24 12/31/23 History Allergies Allergy/AdvReac Type Severity Reaction Status Date / Time adhesive Allergy Unknown rash Verified 12/22/23 13:26 amoxicillin Allergy Unknown rash Verified 12/22/23 13:26 aspirin Allergy Unknown Verified 12/22/23 13:26 hydroxyzine Allergy rash Verified 12/22/23 13:26 morphine Allergy Unknown Verified 12/22/23 13:26 nicotine [From Nicotrol] Allergy Unknown Verified 12/22/23 13:26 nitrofurantoin Allergy ALGY-Wheezi Verified 12/22/23 13:26 [From Macrobid] ng petrolatum,white Allergy rash Verified 12/22/23 13:26 [From Vaseline] vancomycin Allergy rash Verified 12/22/23 13:26 Current Medications Generic Name Dose Route Start Last Admin Trade Name Freq PRN Reason Stop Dose Admin Albuterol/Ipratropium 1 ml 01/02/24 08:00 01/02/24 08:32 Ipratropium-Albuterol 3 Ml Neb INHALATION Not Given QID.RESPIRATORY YONI Alprazolam 2 mg 01/01/24 23:58 01/02/24 00:16 Alprazolam 0.5 Mg Tablet PO 2 mg DAILY PRN Administration Anxiety Aspirin 325 mg 01/02/24 09:00 01/02/24 08:31 Aspirin 325 Mg Ec Tablet PO 325 mg DAILY YONI Administration Atorvastatin Calcium 20 mg 01/02/24 09:00 01/02/24 08:31 Atorvastatin 40 Mg Tablet PO 20 mg DAILY YONI Administration Budesonide 0.5 mg 01/02/24 08:00 01/02/24 08:32 Budesonide 0.5 Mg/2 Ml Neb INHALATION Not Given BID.RESPIRATORY YONI Bupropion HCl 150 mg 01/02/24 09:00 01/02/24 08:29 Bupropion Sr (12 Hr) 100 Mg Tablet PO 150 mg BID YONI Administration Calcium Carbonate 1,000 mg 01/02/24 09:00 01/02/24 08:30 Calcium Carbonate 500 Mg Chew Tablet PO 1,000 mg BID YONI Administration Clopidogrel Bisulfate 75 mg 01/02/24 09:00 01/02/24 08:49 Clopidogrel 75 Mg Tablet PO 75 mg DAILY YONI Administration Colchicine 0.6 mg 01/02/24 09:00 01/02/24 08:29 Colchicine 0.6 Mg Tablet PO 0.6 mg BID YONI Administration Acetaminophen 1,000 mg in 100 mls @ 400 mls/hr 01/01/24 23:53 01/02/24 10:35 Acetaminophen IV 01/02/24 16:07 Infused Q8H YONI Infusion Cefazolin Sodium 2,000 mg/ 50 mls @ 100 mls/hr 01/02/24 07:00 01/02/24 07:34 Sodium Chloride IV 01/02/24 23:29 Infused Q8H YONI Infusion Protocol Levothyroxine Sodium 100 mcg 01/02/24 07:00 01/02/24 06:47 Levothyroxine 100 Mcg Tablet PO 100 mcg DAILY@0700 YONI Administration Loratadine 10 mg 01/02/24 09:00 01/02/24 08:30 Loratadine 10 Mg Tablet PO 10 mg DAILY YONI Administration Metoprolol Tartrate 50 mg 01/02/24 09:00 01/02/24 08:30 Metoprolol Tartrate 25 Mg Tablet PO 50 mg BID YONI Administration Montelukast Sodium 10 mg 01/02/24 09:00 01/02/24 08:30 Montelukast Sodium 10 Mg Tablet PO 10 mg DAILY YONI Administration Multivitamins Therapeutic 1 tab 01/02/24 09:00 01/02/24 08:29 Multivitamin Therapeutic Tablet PO 1 tab DAILY YONI Administration Non-Formulary Medication 27 mg 01/02/24 09:00 01/02/24 08:31 Oxycodone Myristate [Xtampza Er] PO 27 mg BID YONI Administration Ondansetron HCl 4 mg 01/01/24 23:53 01/02/24 00:21 Ondansetron 2 Mg/Ml Sdv 2 Ml IVP 4 mg Q6H PRN Administration NAUSEA AND VOMITING Oxycodone HCl 15 mg 01/02/24 03:57 01/02/24 08:30 Oxycodone 5 Mg Ir Tab/Cap PO 15 mg Q4H PRN Administration SEVERE PAIN Pantoprazole Sodium 40 mg 01/02/24 09:00 01/02/24 08:[address] 40 Mg Tablet PO 40 mg BID YONI Administration Polysaccharide Iron Complex 150 mg 01/02/24 08:00 01/02/24 08:31 Iron Polysaccharide Complex 150 Mg Capsule PO 150 mg BIDWM YONI Administration Senna/Docusate Sodium 2 tab 01/02/24 09:00 01/02/24 08:31 Sennosides-Docusate Tablet PO 2 tab BID YONI Administration Tizanidine HCl 4 mg 01/02/24 09:00 01/02/24 08:29 Tizanidine 4 Mg Tablet PO 4 mg TID YONI Administration Vitamin D 1,000 unit 01/02/24 09:00 01/02/24 08:29 Cholecalciferol (Vitamin D3) 1,000 Unit Tablet PO 1,000 unit DAILY YONI Administration PFSH Acute 2 PFSH: Medical History Dislocation of hip joint prosthesis Pulmonary artery abnormality Primary osteoarthritis of left knee Injury caused by twisting MCL sprain of left knee Left anterior knee pain Osteoarthritis of left hip Seizure disorder GERD (gastroesophageal reflux disease) Hypothyroidism HTN (hypertension) Peripheral arterial disease History of femoral angiogram CAD (coronary artery disease) Throat cancer Surgical History History of left hip hemiarthroplasty Date of procedure: December 09, 2023. Pre-op diagnosis: Avascular necrosis left femoral head with painful retained hardware. Procedure done: Left hip arthroplasty with revision components following removal of gamma 3 nail, long, and with supplemental adductor tenotomy. Implants: The [employer] total hip system with the taoist modular hip system with a size 155 stem by 16 mm diameter, a 21 mm proximal cone with +0 and V40, a size 43 mm outer diameter by 26 mm inner diameter universal head bipolar component and a 26 mm +0 chrome cobalt femoral head. Surgeon: Nayana Cerna MD. S/P aortobifemoral bypass surgery History of hip surgery H/O tubal ligation Family History Mother Osteoarthritis Sister Thyroid disease Social History Smoking and tobacco/nicotine status: current every day tobacco/nicotine user (0.5 ppd) cigarettes Packs smoked per day: 0.5 Years cigarettes smoked: 37 Quit status (tobacco/nicotine): considering quitting Second hand smoke exposure: Yes Alcohol intake: current Alcohol intake frequency: few times a week Substance/Drug Use: never Caregiver/support person: Yes Lives independently: Yes Household members: none Housing: Manufactured/Mobile home Marital status: / Current occupational status: disabled Pets and animals: Yes Do you think of yourself as: Straight/Heterosexual Current gender identity: Female Agree to transfusion: No Vitals/I&O/Wt Last Vital Signs Temp 97.5 F L 01/02/24 07:20 Pulse 133 H 01/02/24 08:32 Resp 20 H 01/02/24 08:32 BP 99/61 01/02/24 07:20 Pulse Ox 98 01/02/24 08:32 O2 Del Method Nasal Cannula 01/02/24 08:32 O2 Flow Rate 1 01/02/24 08:32 01/01/24 01/02/24 01/02/24 22:59 06:59 14:59 Intake Total 1750 / 1850 350 / 2200 150 / 150 Output Total 1300 / 1300 1275 / 2575 Balance 450 / 550 -925 / -375 150 / 150 Weight last 48 hrs Weight 56.835 kg Weight 55.792 kg Weight 55.792 kg Physical Exam 2 Narrative: General exam no distress Neck is supple Cardiovascular regular, tachycardic, no murmur Lungs clear Abdomen is soft nontender positive bowel sounds exams deferred Extremities no cyanosis clubbing edema, cap refill brisk Neuro no focal deficits. Urinary Catheter Management: Bullard: Cath Placed During This Visit: yes, but has since been removed by the nurse Reason for Continuing Indwelling Catheter: Decision to DC Catheter Urinary Catheter Date of Insertion: 01/01/24 Urinary Catheter Time of Insertion: 18:40 Date Urinary Catheter Removed: 01/02/24 Time Urinary Catheter Discontinued: 06:51 Data 01/02/24 04:23 01/02/24 04:23 Other Labs: Preoperative urinalysis was negative EKG which I ordered demonstrated a sinus rhythm of about 100 and nonspecific T wave changes. [place] was normal. A&P Assessment and plan (1) Dislocation of hip joint prosthesis: Patient is postoperative day #1 status post revision for hip dislocation Qualifiers: Encounter type: initial encounter Qualified Code(s): T84.029A - Dislocation of unspecified internal joint prosthesis, initial encounter; Z96.649 - Presence of unspecified artificial hip joint (2) Postoperative anemia due to acute blood loss: She has symptomatic anemia Transfusion 1 unit packed red blood cells CBC and BMP tomorrow Discontinue Pletal Discontinue NSAIDs Secondary to tachycardia baseline EKG was performed see results above. Placed on telemetry. Plan Chronic pain. Continue current narcotics Multiple other medical problems as listed in past medical history DVT prophylaxis as per primary Thank you for this consultation Consult Attestations 2 Medical Necessity Statement: As per primary Diagnoses Dislocation of hip joint prosthesis, initial encounter T84.029A; Z96.649 Encounter type: initial encounter Postoperative anemia due to acute blood loss D62 Time Spent (min) 44
[2024-01-02] MEDS: mupirocin oint 22 gm 1 APPLIC NASAL ×2 (12:05→17:10)
[2024-01-02] MEDS: chlorhexidine gluconate 0.12% Btl 473 mL 30 ML MUCOUS MEM ×3 (12:06→21:13)
--- NOTE | 2024-01-02 13:19 | PC.NURSE ---
Juan Manuel Hillman RN brought a concern to me regarding patient's Xtampza, listed and being used as a home medication, and where to store the medication securely. After discussion with Cheryl Pina, marine biologist, it was decided to change the patient to Oxycodone ER, count the meds per protocol with a 2nd nurse as witness, and store in the Pyxis with home meds. This was performed with Juan Manuel Hillman RN.
--- NOTE | 2024-01-02 13:27 | PC.SOCIAL ---
IMM Update pg 2 of IMM updated and reviewed w/ patient. Copy provided and copy dated, initialed and placed in chart.
[2024-01-02] MEDS: gabapentin 300 mg Capsule PO ×2 (15:02→21:09)
--- NOTE | 2024-01-02 15:34 | P.PN_ITS ---
Subjective 2 Subjective: Patient is seen in her room. She has had significant pain postoperatively, but she is on high levels of pain medication chronically. Today, she seems more comfortable. She has worked with physical therapy as well. Medications: Reviewed: Yes Vitals/I&O/Wt Last Vital Signs Temp 97.8 F 01/02/24 15:28 Pulse 106 H 01/02/24 15:28 Resp 15 01/02/24 15:28 BP 92/53 01/02/24 15:28 Pulse Ox 98 01/02/24 15:28 O2 Del Method Room Air 01/02/24 15:28 O2 Flow Rate 1 01/02/24 08:32 01/02/24 01/02/24 01/02/24 06:59 14:59 22:59 Intake Total 350 / 2200 390 / 390 Output Total 1275 / 2575 Balance -925 / -375 390 / 390 Weight last 48 hrs Weight 125 lb 4.8 oz Weight 123 lb Weight 123 lb Physical Exam 2 Const: COMMON NORMALS: no acute distress, average body habitus, patient oriented x3 and alert GENERAL APPEARANCE: cooperative and comfortable O RIENTATION/CONSCIOUSNESS: Yes awake HENMT: COMMON NORMALS: normocephalic and atraumatic HEAD & SCALP: n ormocephalic and atraumatic Eye: GENERAL EYE: appearance normal, both eyes and all related structures Chest: COMMONS NORMALS: normal inspection of the chest Resp: COMMON NORMALS: normal respiratory effort EFFORT & INSPECTION: Yes able to speak in complete sentences and Yes symmetric chest movement Extremity: LEFT LOWER EXTREMITY: Yes hip joint (Dressing is dry and intact.) Left hip: Yes ROM (Not evaluated.) and Yes neurovascular exam (No evidence of DVT.) Neuro: COMMON NORMALS: patient oriented x3 SENSORIUM/ORIENTATION: Yes alert Psych: COMMON NORMALS: mental status grossly normal APPEARANCE: Yes grossly normal ATTITUDE: Yes calm and Yes engaged ATTENTION/CONCENTRATION: Yes attention grossly intact Skin: COMMON NORMALS: no rashes or lesions noted GENERAL SKIN EXAM: no rashes or lesions noted Urinary Catheter Management: Bullard: Cath Placed During This Visit: yes, but has since been removed by the nurse Reason for Continuing Indwelling Catheter: Decision to DC Catheter Urinary Catheter Date of Insertion: 01/01/24 Urinary Catheter Time of Insertion: 18:40 Date Urinary Catheter Removed: 01/02/24 Time Urinary Catheter Discontinued: 06:51 Data 01/02/24 04:23 01/02/24 04:23 Micro: Microbiology 01/01/24 19:00 Gram Stain - Final Hip - #2 01/01/24 19:00 Gram Stain - Final Hip - #1 A&P Assessment and plan (1) History of revision of total replacement of left hip joint: Patient underwent total hip arthroplasty revision last evening with a longstem uatsdin modular construct. She had significant pain postoperatively, but this has improved over the day today. She will continue to work with physical therapy, but it is likely that she will require inpatient rehabilitation given her revision surgery as well as her overall health. The patient is in agreement with this plan. (2) Dislocation of hip joint prosthesis: Patient underwent bipolar hip arthroplasty for avascular necrosis following a long gamma nail. Postoperatively, she dislocated twice secondary to a shallow acetabulum which was noted at the time of initial surgery. Her cartilage at that time was noted to be good, and decision was made not to proceed with total hip arthroplasty because of this. Unfortunately, this has remained unstable for her and she presents for revision total hip arthroplasty. Qualifiers: Encounter type: initial encounter Qualified Code(s): T84.029A - Dislocation of unspecified internal joint prosthesis, initial encounter; Z96.649 - Presence of unspecified artificial hip joint (3) S/P total left hip arthroplasty: (4) Avascular necrosis of bone of left hip: Attestations 2 Medical Necessity Statement*: Patient requires ongoing medical care including medical consultation following left total hip revision Coding Level of Care Code Acute Code for Chg Fwd Diagnoses History of revision of total replacement of left hip joint Z96.642 Dislocation of hip joint prosthesis, initial encounter T84.029A; Z96.649 Encounter type: initial encounter S/P total left hip arthroplasty Z96.642 Avascular necrosis of bone of left hip M87.052
[2024-01-02] MEDS: ipratropium-albuterol 3 mL Neb 1 ML INHALATION (16:05)
[2024-01-02] MEDS: sodium chloride 0.9% 100 mL Bag 50 ML IV (16:34)
[2024-01-02] MEDS: ipratropium-albuterol 3 mL Neb INHALATION (20:28)
[2024-01-02] MEDS: budesonide 0.5 mg/2 mL Neb INHALATION (20:28)
[2024-01-02] MEDS: oxyCODONE 10 mg ER (12 HR) Tablet 30 MG PO (21:08)
[2024-01-02] MEDS: mirtazapine 15 mg Tablet 7.5 MG PO (21:09)
[2024-01-02] MEDS: acetaminophen 500 mg Tablet 1000 MG PO (22:58)
[2024-01-03] VITALS (14 sets, daily range): BP systolic 90–104; BP diastolic 50–66; PULSE 91–115; RESP 15–19; TEMP 36.3–36.9; O2SAT 96–99
[2024-01-03] MEDS: metoprolol tartrate 50 mg Tablet PO (01:52)
[2024-01-03 03:46] LABS: Basophils # 0.1 10^3/uL (0.0-0.1); Basophils % 0.5 %; Eosinophils % 0.4 %; Hematocrit 26.9 % (36-47); Lymphocytes # 3.3 10^3/uL (0.8-4.8); Lymphocytes % 29.4 %; Mean Corpuscular HGB Conc 31.2 g/dL (30-55); Mean Corpuscular Hemoglobin 29.2 pg (27-33); Mean Corpuscular Volume 93.4 fl (85-98); Mean Platelet Volume 9.3 fL (7.4-10.4); Monocytes # 1.2 10^3/uL (0.2-0.9); Monocytes % 10.5 %; Neutrophils # 6.51 10^3/uL (1.8-7.7); Neutrophils % 58.7 %; Nucleated Red Blood Cells % 0 %; Platelet Count 202 10^3/cmm (157-399); Red Blood Count 2.88 10^6/uL (3.85-5.65); Red Cell Distribution Width 18.1 % (12.1-15.1); White Blood Count 11.07 10^3/uL (3.29-11.43)
[2024-01-03 04:05] LABS: Anion Gap 11.5 (5-19); Blood Urea Nitrogen 12 mg/dL (6-20); Calcium 8.9 mg/dL (8.5-10.5); Carbon Dioxide 23 mmol/L (22-29); Chloride 109 mmol/L (98-107); Creatinine Clr Calc Pharmacy 114.0777; Glomerular Filtration Rate 129.1 mL/min (90-130); Glucose 125 mg/dL (65-115); Osmolality Calculated 291 mOsm/kg (285-295); Potassium 3.5 mmol/L (3.5-5.1); Sodium 140 mmol/L (136-145)
[2024-01-03] MEDS: acetaminophen 500 mg Tablet 1000 MG PO ×3 (06:10→23:11)
[2024-01-03] MEDS: levothyroxine 100 mcg Tablet PO (06:11)
[2024-01-03] MEDS: ipratropium-albuterol 3 mL Neb INHALATION ×2 (07:50→20:46)
[2024-01-03] MEDS: budesonide 0.5 mg/2 mL Neb INHALATION ×2 (07:51→20:46)
[2024-01-03 08:44] LABS: Ferritin 295 ng/mL (15-150); Iron 188 ug/dL (37-145)
[2024-01-03] MEDS: buPROPion SR (12 HR) 100 mg Tablet 150 MG PO ×2 (08:55→17:13)
[2024-01-03] MEDS: calcium carbonate 500 mg Chew Tablet 1000 MG PO ×2 (08:55→17:11)
[2024-01-03] MEDS: pantoprazole DR 40 mg Tablet PO ×2 (08:56→17:11)
[2024-01-03] MEDS: clopidogrel 75 mg Tablet PO (08:56)
[2024-01-03] MEDS: iron polysaccharide complex 150 mg Capsule PO ×2 (08:56→17:11)
[2024-01-03] MEDS: loratadine 10 mg Tablet PO (08:56)
[2024-01-03] MEDS: multivitamin therapeutic Tablet 1 TAB PO (08:56)
[2024-01-03] MEDS: atorvastatin 40 mg Tablet 20 MG PO (08:56)
[2024-01-03] MEDS: sennosides-docusate Tablet 2 TAB PO ×2 (08:56→17:11)
[2024-01-03] MEDS: aspirin 81 mg EC Tablet PO (08:56)
[2024-01-03] MEDS: gabapentin 300 mg Capsule PO ×3 (08:56→20:28)
[2024-01-03] MEDS: tizanidine 4 mg Tablet PO ×3 (08:56→20:27)
[2024-01-03] MEDS: montelukast sodium 10 mg Tablet PO (08:57)
[2024-01-03] MEDS: colchicine 0.6 mg Tablet 0.599999999999999978 MG PO ×2 (08:57→17:11)
[2024-01-03] MEDS: cholecalciferol (vitamin D3) 1,000 unit Tablet 1000 UNIT PO (08:57)
[2024-01-03] MEDS: oxyCODONE 10 mg ER (12 HR) Tablet 30 MG PO ×2 (08:57→20:29)
[2024-01-03 08:58] LABS: Vitamin B12 791 pg/mL (232-1245)
[2024-01-03] MEDS: chlorhexidine gluconate 0.12% Btl 473 mL 30 ML MUCOUS MEM ×4 (08:59→20:32)
[2024-01-03] MEDS: mupirocin oint 22 gm 1 APPLIC NASAL ×2 (09:00→17:13)
[2024-01-03 09:02] LABS: Folate Level 14.8 ng/mL (4.8-37.3)
[2024-01-03 09:28] LABS: Total Iron Binding Capacity 188 mcg/dl; Unsaturated Iron Binding 0 ug/dL (112-347)
[2024-01-03 09:38] LABS: Basophils # 0.1 10^3/uL (0.0-0.1); Basophils % 0.5 %; Eosinophils # 0.3 10^3/uL (0.0-0.8); Eosinophils % 2.8 %; Hematocrit 26.9 % (36-47); Lymphocytes % 38.1 %; Mean Corpuscular HGB Conc 30.9 g/dL (30-55); Mean Corpuscular Hemoglobin 29.1 pg (27-33); Mean Corpuscular Volume 94.4 fl (85-98); Mean Platelet Volume 9.4 fL (7.4-10.4); Monocytes # 1.2 10^3/uL (0.2-0.9); Monocytes % 11.4 %; Neutrophils # 4.94 10^3/uL (1.8-7.7); Neutrophils % 46.7 %; Nucleated Red Blood Cells % 0 %; Platelet Count 198 10^3/cmm (157-399); Red Blood Count 2.85 10^6/uL (3.85-5.65); Red Cell Distribution Width 18.5 % (12.1-15.1); White Blood Count 10.58 10^3/uL (3.29-11.43)
--- NOTE | 2024-01-03 09:47 | ECG_ITS ---
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 Measurements Intervals [place] Rate: 96 P: 36 UT: 154 QRS: 22 QRSD: 92 T: 49 QT: 357 QTc: 451 Interpretive Statements SINUS RHYTHM NONSPECIFIC T-WAVE ABNORMALITY Compared to ECG 01/02/2024 11:17:59 T-wave abnormality now present Electronically Signed On 01-03-2024 13:43:53 CDT by Bethanie Osborne M.D. [id number]
[2024-01-03 09:51] LABS: Troponin(5th) Baseline 28 ng/L (0-10)
[2024-01-03 09:52] LABS: Lactate (Lactic Acid level) 1.4 mmol/L (0.5-2.2)
--- NOTE | 2024-01-03 10:25 | PC.OT ---
OT attempted this AM at 0920. Patient was asleep upon therapist arrival. She was awoken and pleasantly declines therapy due to lethargy. Therapist returned to room at 1020 where patient remained asleep. She recently received 30mg of Oxycodone. Will attempt later if able or continue plan of care with tx tomorrow. Gino Cuellar, OTR/L
[2024-01-03] MEDS: sucralfate 1 gm/10 mL Oral Liq UDC PO ×3 (12:19→20:27)
[2024-01-03 12:22] LABS: Troponin 5 2HR 24.11 ng/L (0-10); Troponin 5 2HR Delta -3.89 ABS# (0-10)
--- NOTE | 2024-01-03 13:55 | P.PN_ITS ---
Subjective 2 Subjective: - Patient was seen this morning, she sit ting in bed, reporting weakness, fatigue, ? Overnight she remained hypotensive, maps between 60-65, ? She received 1 unit of blood yesterday, ? She does report she had an EGD and colonoscopy in the past no acute findings, next?does report history of blood transfusions in the past, ? We discussed her hemoglobin being 8.3 today we will continue to monitor her ? Will order further blood work, monitor her for the next 24 hours ? She denies any bloody or black stools, ? She denies any chest pain but does report a history of CAD Vitals/I&O/Wt Last Vital Signs Temp 97.5 F L 01/03/24 12:24 Pulse 105 H 01/03/24 12:24 Resp 17 01/03/24 12:24 BP 99/62 01/03/24 12:24 Pulse Ox 99 01/03/24 12:24 O2 Del Method Room Air 01/03/24 12:24 O2 Flow Rate 1 01/02/24 08:32 01/02/24 01/03/24 01/03/24 22:59 06:59 14:59 Intake Total 400 / 790 200 / 990 480 / 480 Balance 400 / 790 200 / 990 480 / 480 Weight last 48 hrs Weight 60.237 kg Weight 56.835 kg Weight 55.792 kg Physical Exam 2 Urinary Catheter Management: Bullard: Cath Placed During This Visit: yes, but has since been removed by the nurse Reason for Continuing Indwelling Catheter: Decision to DC Catheter Urinary Catheter Date of Insertion: 01/01/24 Urinary Catheter Time of Insertion: 18:40 Date Urinary Catheter Removed: 01/02/24 Time Urinary Catheter Discontinued: 06:51 Data 01/03/24 09:24 01/03/24 03:03 Micro: Microbiology 01/01/24 19:00 Gram Stain - Final Hip - #2 01/01/24 19:00 Gram Stain - Final Hip - #1 A&P Assessment and plan (1) Dislocation of hip joint prosthesis: Patient is postoperative day #2 status post revision for hip dislocation ? Decrease aspirin to 81 mg for DVT prophylaxis, ?patient is on Plavix 75 mg ? Due to postoperative anemia, hold off on Lovenox ? Qualifiers: Encounter type: initial encounter Qualified Code(s): T84.029A - Dislocation of unspecified internal joint prosthesis, initial encounter; Z96.649 - Presence of unspecified artificial hip joint (2) Postoperative anemia due to acute blood loss: She has symptomatic anemia Transfusion 1 unit packed red blood cells Colonoscopy in 2020 no acute findings ? No history of EGD CBC and BMP tomorrow Discontinue Pletal Discontinue NSAIDs Secondary to tachycardia baseline EKG was performed see results above. Placed on telemetry. Monitor tele did receive metoprolol last night ? Monitor hemoglobin (3) Postoperative hypotension: ? Component related to anesthetic ? Component related to postoperative anemia ? Holding metoprolol, although she received metoprolol last night -Workup as below ? Metoprolol hold (4) HTN (hypertension): Qualifiers: Hypertension type: primary hypertension Qualified Code(s): I10 - Essential (primary) hypertension (5) CAD (coronary artery disease): Qualifiers: Hypothyroidism type: unspecified Coronary Disease-Associated Artery/Lesion type: [place] artery [place] vs. transplanted heart: [place] heart Associated angina: without angina Qualified Code(s): I25.10 - Atherosclerotic heart disease of [place] coronary artery without angina pectoris (6) Peripheral arterial disease: (7) COPD (chronic obstructive pulmonary disease): Qualifiers: COPD type: unspecified COPD Qualified Code(s): J44.9 - Chronic obstructive pulmonary disease, unspecified Plan History of B-cell lymphoma, status post R-CHOP in 2010 History of peripheral neuropathy secondary chemotherapy History of chronic pain on chronic opiates History of CAD, status post stenting History of COPD History of hypothyroidism Chronic pain. Continue current narcotics Multiple other medical problems as listed in past medical history DVT prophylaxis as per primary Thank you for this consultation Plan for today, reviewed Dr. Hardy's notes, reviewed Dr. Hardy's blood work and workup, ? Reviewed Dr. Nair's notes, reviewed prior notes and medical record ordered CBC for noon, iron studies B12 folate, lactic acid series, troponin series, continue to monitor blood pressures closely, spoke to patient, spoke to nursing staff, repeat UA, cortisol, reviewed colonoscopy report from 2020 Attestations 2 Medical Necessity Statement*: Patient requires hospitalization for postoperative anemia postoperative hypotension, Diagnoses Dislocation of hip joint prosthesis, initial encounter T84.029A; Z96.649 Encounter type: initial encounter Postoperative anemia due to acute blood loss D62 Postoperative hypotension I95.81 Primary hypertension I10 Hypertension type: primary hypertension Coronary artery disease involving [place] coronary artery of [place] heart without angina pectoris I25.10 Hypothyroidism type: unspecified Coronary Disease-Associated Artery/Lesion type: [place] artery [place] vs. transplanted heart: [place] heart Associated angina: without angina Peripheral arterial disease I73.9 Chronic obstructive pulmonary disease, unspecified COPD type J44.9 COPD type: unspecified COPD
[2024-01-03] MEDS: oxyCODONE 5 mg IR Tab/Cap 15 MG PO (14:12)
[2024-01-03 16:19] LABS: Troponin 5 6HR 23.37 ng/L (0-10)
[2024-01-03 16:20] LABS: Troponin 5 6HR Delta -4.63 ng/L (0-12)
[2024-01-03 16:27] LABS: Cortisol Random 6.16 ug/dL (2.47-19.5)
--- NOTE | 2024-01-03 18:03 | P.PN_ITS ---
Subjective 2 Subjective: Patient was seen this evening in her room. She has been up several times through the day and is feeling much better. Medications: Reviewed: Yes Vitals/I&O/Wt Last Vital Signs Temp 97.7 F 01/03/24 16:55 Pulse 113 H 01/03/24 16:55 Resp 18 01/03/24 16:55 BP 100/62 01/03/24 16:55 Pulse Ox 98 01/03/24 16:55 O2 Del Method Room Air 01/03/24 16:55 O2 Flow Rate 1 01/02/24 08:32 01/03/24 01/03/24 01/03/24 06:59 14:59 22:59 Intake Total 200 / 990 480 / 480 Balance 200 / 990 480 / 480 Weight last 48 hrs Weight 132 lb 12.8 oz Weight 125 lb 4.8 oz Weight 123 lb Physical Exam 2 Const: COMMON NORMALS: no acute distress, average body habitus, patient oriented x3 and alert GENERAL APPEARANCE: cooperative and comfortable O RIENTATION/CONSCIOUSNESS: Yes awake HENMT: COMMON NORMALS: normocephalic and atraumatic HEAD & SCALP: n ormocephalic and atraumatic Eye: GENERAL EYE: appearance normal, both eyes and all related structures Chest: COMMONS NORMALS: normal inspection of the chest Resp: COMMON NORMALS: normal respiratory effort EFFORT & INSPECTION: Yes able to speak in complete sentences and Yes symmetric chest movement Extremity: LEFT LOWER EXTREMITY: Yes hip joint (Dressing is dry and intact.) Left hip: Yes inspection (Minimal swelling.), Yes palpation (Minimal to no tenderness), Yes ROM (Not evaluated) and Yes neurovascular exam (Intact with no evidence of DVT) Neuro: COMMON NORMALS: patient oriented x3 SENSORIUM/ORIENTATION: Yes alert Psych: COMMON NORMALS: mental status grossly normal APPEARANCE: Yes grossly normal ATTITUDE: Yes calm and Yes engaged ATTENTION/CONCENTRATION: Yes attention grossly intact Skin: COMMON NORMALS: no rashes or lesions noted GENERAL SKIN EXAM: no rashes or lesions noted Urinary Catheter Management: Bullard: Cath Placed During This Visit: yes, but has since been removed by the nurse Reason for Continuing Indwelling Catheter: Decision to DC Catheter Urinary Catheter Date of Insertion: 01/01/24 Urinary Catheter Time of Insertion: 18:40 Date Urinary Catheter Removed: 01/02/24 Time Urinary Catheter Discontinued: 06:51 Data 01/03/24 09:24 01/03/24 03:03 Micro: Microbiology 01/01/24 19:00 Gram Stain - Final Hip - #2 Anaerobic Culture - Preliminary Wound Culture - Preliminary 01/01/24 19:00 Gram Stain - Final Hip - #1 Anaerobic Culture - Preliminary Wound Culture - Preliminary A&P Assessment and plan (1) History of revision of total replacement of left hip joint: Patient underwent total hip arthroplasty revision with a longstem gnosticist modular construct. Patient continues to improve in function and pain level. Plans will be made either for her discharge home with a caregiver or nursing home. She continues to work with physical therapy, and she is becoming more comfortable with her ambulation. (2) Dislocation of hip joint prosthesis: Patient underwent bipolar hip arthroplasty for avascular necrosis following a long gamma nail. Postoperatively, she dislocated twice secondary to a shallow acetabulum which was noted at the time of initial surgery. Her cartilage at that time was noted to be good, and decision was made not to proceed with total hip arthroplasty because of this. Unfortunately, this has remained unstable for her and she presents for revision total hip arthroplasty. Qualifiers: Encounter type: initial encounter Qualified Code(s): T84.029A - Dislocation of unspecified internal joint prosthesis, initial encounter; Z96.649 - Presence of unspecified artificial hip joint (3) S/P total left hip arthroplasty: (4) Avascular necrosis of bone of left hip: Attestations 2 Medical Necessity Statement*: Ongoing care following hip revision surgery Coding Level of Care Code Acute Code for Chg Fwd Diagnoses History of revision of total replacement of left hip joint Z96.642 Dislocation of hip joint prosthesis, initial encounter T84.029A; Z96.649 Encounter type: initial encounter S/P total left hip arthroplasty Z96.642 Avascular necrosis of bone of left hip M87.052
[2024-01-03] MEDS: mirtazapine 15 mg Tablet 7.5 MG PO (20:28)
[2024-01-03] MEDS: ALPRAZolam 0.5 mg Tablet 2 MG PO (20:31)
[2024-01-03 20:56] LABS: Add Urine Microscopic? NO; Charge for UA Resulting for Rev
[2024-01-03 21:02] LABS: Bilirubin Urine Neg (Negative); Blood Urine Neg (Negative); Glucose Urine UA Norm (Normal); Ketones Urine Negative (Negative); Leukocyte Esterase Urine Negative (Negative); Nitrate Urine Negative (Negative); Protein Urine Neg (Negative); Urine Appearance Clear (CLEAR); Urine Color Yellow (Yellow); Urobilinogen Urine Neg (Negative); pH Urine 7 (5-7)
[2024-01-04] VITALS (18 sets, daily range): BP systolic 86–116; BP diastolic 46–72; PULSE 92–128; RESP 14–18; TEMP 36.3–37.1; O2SAT 96–99
[2024-01-04] MEDS: oxyCODONE 5 mg IR Tab/Cap 15 MG PO ×2 (03:23→15:06)
[2024-01-04 03:33] LABS: Basophils # 0.1 10^3/uL (0.0-0.1); Basophils % 0.5 %; Eosinophils # 0.3 10^3/uL (0.0-0.8); Eosinophils % 2.5 %; Lymphocytes # 3.7 10^3/uL (0.8-4.8); Lymphocytes % 34.6 %; Mean Corpuscular HGB Conc 30.8 g/dL (30-55); Mean Corpuscular Hemoglobin 29.1 pg (27-33); Mean Corpuscular Volume 94.3 fl (85-98); Mean Platelet Volume 9.5 fL (7.4-10.4); Monocytes # 0.9 10^3/uL (0.2-0.9); Monocytes % 8.7 %; Neutrophils # 5.73 10^3/uL (1.8-7.7); Neutrophils % 53.2 %; Nucleated Red Blood Cells % 0 %; Platelet Count 207 10^3/cmm (157-399); Red Blood Count 2.65 10^6/uL (3.85-5.65); Red Cell Distribution Width 18.3 % (12.1-15.1); White Blood Count 10.77 10^3/uL (3.29-11.43)
[2024-01-04 03:49] LABS: Anion Gap 11.8 (5-19); Blood Urea Nitrogen 12 mg/dL (6-20); Calcium 9.1 mg/dL (8.5-10.5); Carbon Dioxide 24 mmol/L (22-29); Chloride 108 mmol/L (98-107); Glomerular Filtration Rate 104.6 mL/min (90-130); Glucose 108 mg/dL (65-115); Osmolality Calculated 290 mOsm/kg (285-295); Potassium 3.8 mmol/L (3.5-5.1); Sodium 140 mmol/L (136-145)
[2024-01-04] MEDS: acetaminophen 500 mg Tablet 1000 MG PO ×3 (06:11→22:48)
[2024-01-04] MEDS: levothyroxine 100 mcg Tablet PO (06:11)
[2024-01-04] MEDS: sucralfate 1 gm/10 mL Oral Liq UDC PO ×4 (06:11→20:31)
[2024-01-04] MEDS: buPROPion SR (12 HR) 100 mg Tablet 150 MG PO ×2 (08:39→17:38)
[2024-01-04] MEDS: oxyCODONE 10 mg ER (12 HR) Tablet 30 MG PO ×2 (08:39→20:29)
[2024-01-04] MEDS: sennosides-docusate Tablet 2 TAB PO ×2 (08:39→17:39)
[2024-01-04] MEDS: loratadine 10 mg Tablet PO (08:39)
[2024-01-04] MEDS: calcium carbonate 500 mg Chew Tablet 1000 MG PO ×2 (08:39→17:38)
[2024-01-04] MEDS: montelukast sodium 10 mg Tablet PO (08:40)
[2024-01-04] MEDS: tizanidine 4 mg Tablet PO ×3 (08:40→20:30)
[2024-01-04] MEDS: pantoprazole DR 40 mg Tablet PO (08:40)
[2024-01-04] MEDS: colchicine 0.6 mg Tablet 0.599999999999999978 MG PO ×2 (08:40→17:38)
[2024-01-04] MEDS: iron polysaccharide complex 150 mg Capsule PO ×2 (08:40→17:39)
[2024-01-04] MEDS: gabapentin 300 mg Capsule PO ×3 (08:40→20:30)
[2024-01-04] MEDS: aspirin 81 mg EC Tablet PO (08:40)
[2024-01-04] MEDS: cholecalciferol (vitamin D3) 1,000 unit Tablet 1000 UNIT PO (08:40)
[2024-01-04] MEDS: multivitamin therapeutic Tablet 1 TAB PO (08:40)
[2024-01-04] MEDS: clopidogrel 75 mg Tablet PO (08:40)
[2024-01-04] MEDS: atorvastatin 40 mg Tablet 20 MG PO (08:40)
[2024-01-04] MEDS: chlorhexidine gluconate 0.12% Btl 473 mL 30 ML MUCOUS MEM ×4 (08:41→20:31)
[2024-01-04] MEDS: mupirocin oint 22 gm 1 APPLIC NASAL ×2 (08:41→17:40)
[2024-01-04] MEDS: budesonide 0.5 mg/2 mL Neb INHALATION ×2 (08:57→19:48)
--- NOTE | 2024-01-04 10:29 | PC.OT ---
OT reviewed recent lab results with patient noting to have HGB at 7.7 which is not in therapeutic range. Will hold OT tx until patient is appropriate. Gino Cuellar, OTR/L
[2024-01-04] MEDS: pantoprazole 40 mg SDV IVP ×2 (12:10→22:48)
--- NOTE | 2024-01-04 15:36 | P.PN_ITS ---
Subjective 2 Subjective: Patient was seen this morning, she continues to complain of dizziness and weakness, Vitals/I&O/Wt Last Vital Signs Temp 98.3 F 01/04/24 15:20 Pulse 110 H 01/04/24 15:20 Resp 16 01/04/24 15:20 BP 104/62 01/04/24 15:20 Pulse Ox 98 01/04/24 15:20 O2 Del Method Room Air 01/04/24 08:55 O2 Flow Rate 1 01/02/24 08:32 01/04/24 01/04/24 01/04/24 06:59 14:59 22:59 Intake Total 240 / 1080 480 / 480 0 / 480 Balance 240 / 680 480 / 480 0 / 480 Weight last 48 hrs Weight 60.192 kg Weight 60.237 kg Physical Exam 2 Const: COMMON NORMALS: no acute distress and patient oriented x3 Resp: COMMON NORMALS: normal respiratory effort, No retractions, No use of accessory muscles and clear to auscultation bilaterally AUSCULTATION: clear to auscultation bilaterally Cardio: COMMON NORMALS: regular rate, regular rhythm, S1 normal heart sound present and S2 normal heart sound present RATE: regular rate RHYTHM: r egular rhythm HEART SOUNDS: S1 normal heart sound present and S2 normal heart sound present GI: COMMON NORMALS: Normal to inspection, nondistended, normoactive bowel sounds present and non-tender Extremity: COMMON NORMALS: no pedal edema Neuro: COMMON NORMALS: patient oriented x3 Psych: COMMON NORMALS: mental status grossly normal Urinary Catheter Management: Bullard: Cath Placed During This Visit: yes, but has since been removed by the nurse Reason for Continuing Indwelling Catheter: Decision to DC Catheter Urinary Catheter Date of Insertion: 01/01/24 Urinary Catheter Time of Insertion: 18:40 Date Urinary Catheter Removed: 01/02/24 Time Urinary Catheter Discontinued: 06:51 Data 01/04/24 13:12 01/04/24 03:00 Micro: Microbiology 01/01/24 19:00 Gram Stain - Final Hip - #2 Anaerobic Culture - Preliminary Wound Culture - Preliminary 01/01/24 19:00 Gram Stain - Final Hip - #1 Anaerobic Culture - Preliminary Wound Culture - Preliminary 01/04/24 09:15 Occult Blood (FIT) - Final Stool A&P Assessment and plan (1) Dislocation of hip joint prosthesis: Patient is postoperative status post revision for hip dislocation ? Decrease aspirin to 81 mg for DVT prophylaxis, ?patient is on Plavix 75 mg ? Due to postoperative anemia, hold off on Lovenox Qualifiers: Encounter type: initial encounter Qualified Code(s): T84.029A - Dislocation of unspecified internal joint prosthesis, initial encounter; Z96.649 - Presence of unspecified artificial hip joint (2) Postoperative anemia due to acute blood loss: She has symptomatic anemia Transfusion 1 unit packed red blood cells Colonoscopy in 2020 no acute findings ? No history of EGD hgb 7.1 today, hemmocult positive for blood concern for gi bleed, transfuse 1 unit prbc General surgery consulted ? For EGD and colonoscopy ? Will give Dulcolax, mag citrate ? Monitor hemoglobin monitor hemodynamics Discontinue Pletal Discontinue NSAIDs Secondary to tachycardia baseline EKG was performed see results above. Placed on telemetry. ? Monitor hemoglobin (3) Postoperative hypotension: ? Component related to anesthetic ? Component related to postoperative anemia -slow GI bleed ? Holding metoprolol, although she received metoprolol last night -Workup as below ? Metoprolol hold (4) HTN (hypertension): Qualifiers: Hypertension type: primary hypertension Qualified Code(s): I10 - Essential (primary) hypertension (5) CAD (coronary artery disease): Qualifiers: Hypothyroidism type: unspecified Coronary Disease-Associated Artery/Lesion type: [place] artery [place] vs. transplanted heart: [place] heart Associated angina: without angina Qualified Code(s): I25.10 - Atherosclerotic heart disease of [place] coronary artery without angina pectoris (6) Peripheral arterial disease: (7) COPD (chronic obstructive pulmonary disease): Qualifiers: COPD type: unspecified COPD Qualified Code(s): J44.9 - Chronic obstructive pulmonary disease, unspecified (8) Orthostatic hypotension: (9) GI bleed: Plan she is sitting up to the side of the table tells me that whenever she gets up she feels lightheaded and dizzy, she denies seeing any blood in her stool, she has had a colonoscopy and she is never had an EGD, we discussed her possibly going to a intermediate versus going home she tells me that she has enough help at home, so she feels she could go home, we discussed monitoring in the hospital, her orthostatic vitals are grossly positive, systolic blood pressure drops 86/46, upon standing up her hemoglobin is trending downward again will monitor hemoglobin, she is agreeable, hemoglobin has trended down to 7.1 will give 1 unit PRBC Hemoccult stool positive, given her orthostatic positive her feeling dizzy, hemoglobin down to 7.1 Hemoccult positive stool and concern for GI bleed, she needs to be on aspirin and Plavix long-term, given history of CAD history of smoking, history of multi vessel peripheral vascular disease, And if I send her home, she has a high risk of readmission, high risk of morbidity mortality associate with anemia, GI bleed, she is needs to be on some sort antiplatelet therapy given her history, will have to have an answer for her anemia before she leaves the hospital specially she has had surgery she is high risk of DVTs and PEsspoke to Dr. Grigsby, agreed to proceed with EGD colonoscopy tomorrow, will start her on Dulcolax, mag citrate tonight, keep on clear liquids n.p.o. over midnight Attestations 2 Medical Necessity Statement*: Patient requires hospitalization for Concerns for postoperative anemia, stop potential orthostatic hypotension concerns for slow GI bleed, anemia of chronic transfusion PRBC, consulted surgery EGD colonoscopy tomorrow, n.p.o. midnight Diagnoses Dislocation of hip joint prosthesis, initial encounter T84.029A; Z96.649 Encounter type: initial encounter Postoperative anemia due to acute blood loss D62 Postoperative hypotension I95.81 Primary hypertension I10 Hypertension type: primary hypertension Coronary artery disease involving [place] coronary artery of [place] heart without angina pectoris I25.10 Hypothyroidism type: unspecified Coronary Disease-Associated Artery/Lesion type: [place] artery [place] vs. transplanted heart: [place] heart Associated angina: without angina Peripheral arterial disease I73.9 Chronic obstructive pulmonary disease, unspecified COPD type J44.9 COPD type: unspecified COPD Orthostatic hypotension I95.1 GI bleed K92.2
[2024-01-04] MEDS: magnesium citrate Btl 296 mL PO ×2 (16:04→20:31)
[2024-01-04] MEDS: bisacodyl 5 mg Tablet 10 MG PO ×2 (16:04→20:30)
[2024-01-04 19:03] LABS: Hematocrit 27.7 % (36-47)
[2024-01-04] MEDS: mirtazapine 15 mg Tablet 7.5 MG PO (20:30)
[2024-01-04] MEDS: ALPRAZolam 0.5 mg Tablet 2 MG PO (20:33)
--- NOTE | 2024-01-04 20:38 | P.CONIM_ITS ---
Providers/Reason For Consult 2 Consulting Physician/Specialty*: Dr. Hector Grigsby, DO/General surgery Reason for Consult*: Anemia with Hemoccult positive stools Attending Physician: Nayana Cerna MD Primary Care Provider: Rose Beaver DO History of Present Illness History of Present Illness Amanda Hutchinson is a 53 year old female who is currently in the hospital after revision of left hip total arthroplasty for avascular necrosis. She has been anemic and her hemoglobin has been trending downward. She was found to have Hemoccult positive stools. She reports that her last colonoscopy was in 2020 and was within normal limits. She denies any abdominal pain, nausea, emesis, diarrhea, constipation, hematochezia and/or melena. Review of Systems 2 General: Reports: 10 or more systems reviewed and unremarkable except in HPI and below Medications/Allergies Home Medications Medication Instructions Recorded Confirmed Last Taken Type cetirizine 10 mg capsule 10 mg PO DAILY 07/24/20 01/02/24 12/31/23 History clopidogrel 75 mg tablet 75 mg PO DAILY 07/24/20 01/02/24 12/26/23 History montelukast 10 mg tablet 10 mg PO DAILY 07/24/20 01/02/24 12/31/23 History promethazine 25 mg tablet 25 mg PO TID PRN Nausea And 07/24/20 01/02/24 12/31/23 History Vomiting albuterol sulfate 90 mcg/actuation 2 inh inhalation Q4H PRN Shortness 10/10/20 12/31/23 12/31/23 History breath activated powder inhaler Of Breath oxycodone myristate 27 mg capsule 27 mg PO BID 10/10/20 01/02/24 01/01/24 History sprinkle extended release 12hr(DON'T CRUSH) (Xtampza ER) fluticasone fur. 100 mcg-umeclid 1 inh inhalation DAILY #60 ea 02/11/22 01/02/24 12/31/23 Rx 62.5 mcg-vilant 25 mcg inhalat.powder (Trelegy Ellipta) ipratropium 0.5 mg-albuterol 3 mg 3 ml inhalation Q4H PRN wheezing 03/08/22 01/02/24 12/31/23 Rx (2.5 mg base)/3 mL nebulization #90 mL soln levothyroxine 112 mcg capsule 100 mcg PO DAILY 03/08/22 01/02/24 12/31/23 History naloxone 4 mg/actuation nasal 1 ea intranasal PRN PRN overdose 03/11/22 01/02/24 Unknown History spray (Narcan) nitroglycerin 0.4 mg sublingual 0.4 mg sublingual Q5M PRN chest 03/11/22 01/02/24 Unknown Rx tablet pain #25 tabs acapella device #1 ea 06/25/22 01/02/24 Unknown Rx tizanidine 4 mg tablet 4 mg PO TID PRN MUSCLE SPASMS 03/11/23 01/02/24 12/08/23 History alprazolam 2 mg tablet 2 mg PO DAILY PRN Anxiety 04/29/23 01/02/24 12/31/23 History aspirin 81 mg tablet,delayed 81 mg PO DAILY 04/29/23 01/02/24 12/31/23 History release (Adult Low Dose Aspirin) cholecalciferol (vitamin D3) 25 25 mcg PO DAILY 04/29/23 01/02/24 12/31/23 History mcg (1,000 unit) capsule colchicine 0.6 mg tablet (Colcrys) 0.6 mg PO BID 04/29/23 01/02/24 12/31/23 History mirtazapine 15 mg tablet 15 mg PO BEDTIME 04/29/23 01/02/24 12/31/23 History multivitamin 1 tab PO DAILY 04/29/23 01/02/24 12/31/23 History omeprazole magnesium 20 mg 20 mg PO BID 04/29/23 01/02/24 12/31/23 History capsule,delayed release Hinged Knee Brace #1 ea 09/24/23 01/02/24 Unknown Rx Bedside Commode #1 ea 12/03/23 01/02/24 Unknown Rx cilostazol 100 mg tablet 100 mg PO BID 12/08/23 01/02/24 12/31/23 History simvastatin 40 mg tablet 40 mg PO DAILY 12/08/23 01/02/24 12/31/23 History oxycodone 15 mg tablet 15 mg PO Q4H PRN Pain #10 tabs 12/14/23 01/02/24 01/01/24 Rx bupropion HCl 150 mg tablet,12 hr 150 mg PO BID 01/02/24 01/02/24 12/31/23 History sustained-release gabapentin 300 mg capsule 300 mg PO TID 01/02/24 01/02/24 12/31/23 History guaifenesin 100 mg/5 mL oral liquid 200 mg PO Q4H PRN COUGH AND 01/02/24 01/02/24 Unknown History CONGESTION metoprolol tartrate 50 mg tablet 50 mg PO BID 01/02/24 01/02/24 12/31/23 History Allergies Allergy/AdvReac Type Severity Reaction Status Date / Time adhesive Allergy Unknown rash Verified 12/22/23 13:26 amoxicillin Allergy Unknown rash Verified 12/22/23 13:26 aspirin Allergy Unknown Verified 12/22/23 13:26 hydroxyzine Allergy rash Verified 12/22/23 13:26 morphine Allergy Unknown Verified 12/22/23 13:26 nicotine [From Nicotrol] Allergy Unknown Verified 12/22/23 13:26 nitrofurantoin Allergy ALGY-Wheezi Verified 12/22/23 13:26 [From Macrobid] ng petrolatum,white Allergy rash Verified 12/22/23 13:26 [From Vaseline] vancomycin Allergy rash Verified 12/22/23 13:26 Current Medications Generic Name Dose Route Start Last Admin Trade Name Freq PRN Reason Stop Dose Admin Acetaminophen 1,000 mg 01/02/24 23:00 01/04/24 15:06 Acetaminophen 500 Mg Tablet PO 1,000 mg Q8H YONI Administration Albuterol/Ipratropium 3 ml 01/01/24 23:53 01/03/24 20:46 Ipratropium-Albuterol 3 Ml Neb INHALATION 3 ml Q4H PRN Administration wheezing Alprazolam 2 mg 01/01/24 23:58 01/04/24 20:33 Alprazolam 0.5 Mg Tablet PO 2 mg DAILY PRN Administration Anxiety Aspirin 81 mg 01/03/24 09:00 01/04/24 08:40 Aspirin 81 Mg Ec Tablet PO 81 mg DAILY YONI Administration Atorvastatin Calcium 20 mg 01/02/24 09:00 01/04/24 08:40 Atorvastatin 40 Mg Tablet PO 20 mg DAILY YONI Administration Bisacodyl 10 mg 01/04/24 21:00 01/04/24 20:30 Bisacodyl 5 Mg Tablet PO 01/04/24 21:01 10 mg NOW ONE Administration Budesonide 0.5 mg 01/02/24 08:00 01/04/24 19:48 Budesonide 0.5 Mg/2 Ml Neb INHALATION 0.5 mg BID.RESPIRATORY YONI Administration Bupropion HCl 150 mg 01/02/24 09:00 01/04/24 17:38 Bupropion Sr (12 Hr) 100 Mg Tablet PO 150 mg BID YONI Administration Calcium Carbonate 1,000 mg 01/02/24 09:00 01/04/24 17:38 Calcium Carbonate 500 Mg Chew Tablet PO 1,000 mg BID YONI Administration Chlorhexidine Gluconate 30 ml 01/02/24 09:00 01/04/24 20:31 Chlorhexidine Gluconate 0.12% Btl 473 Ml MUCOUS MEM 30 ml QID YONI Administration Clopidogrel Bisulfate 75 mg 01/02/24 09:00 01/04/24 08:40 Clopidogrel 75 Mg Tablet PO 75 mg DAILY YONI Administration Colchicine 0.6 mg 01/02/24 09:00 01/04/24 17:38 Colchicine 0.6 Mg Tablet PO 0.6 mg BID YONI Administration Gabapentin 300 mg 01/02/24 15:00 01/04/24 20:30 Gabapentin 300 Mg Capsule PO 300 mg TID YONI Administration Levothyroxine Sodium 100 mcg 01/02/24 07:00 01/04/24 06:11 Levothyroxine 100 Mcg Tablet PO 100 mcg DAILY@0700 YONI Administration Loratadine 10 mg 01/02/24 09:00 01/04/24 08:39 Loratadine 10 Mg Tablet PO 10 mg DAILY YONI Administration Mirtazapine 7.5 mg 01/02/24 21:00 01/04/24 20:30 Mirtazapine 15 Mg Tablet PO 7.5 mg BEDTIME YONI Administration Montelukast Sodium 10 mg 01/02/24 09:00 01/04/24 08:40 Montelukast Sodium 10 Mg Tablet PO 10 mg DAILY YONI Administration Multivitamins Therapeutic 1 tab 01/02/24 09:00 01/04/24 08:40 Multivitamin Therapeutic Tablet PO 1 tab DAILY YONI Administration Mupirocin 1 applic 01/02/24 09:00 01/04/24 17:40 Mupirocin Oint 22 Gm NASAL 01/07/24 08:59 1 applic BID YONI Administration Ondansetron HCl 4 mg 01/01/24 23:53 01/02/24 00:21 Ondansetron 2 Mg/Ml Sdv 2 Ml IVP 4 mg Q6H PRN Administration NAUSEA AND VOMITING Oxycodone HCl 15 mg 01/02/24 03:57 01/04/24 15:06 Oxycodone 5 Mg Ir Tab/Cap PO 15 mg Q4H PRN Administration SEVERE PAIN Oxycodone HCl 30 mg 01/02/24 20:00 01/04/24 20:29 Oxycodone 10 Mg Er (12 Hr) Tablet PO 30 mg Q12H YONI Administration Pantoprazole Sodium 40 mg 01/04/24 10:30 01/04/24 12:10 Pantoprazole 40 Mg Sdv IVP 40 mg Q12H YONI Administration Polysaccharide Iron Complex 150 mg 01/02/24 08:00 01/04/24 17:39 Iron Polysaccharide Complex 150 Mg Capsule PO 150 mg BIDWM YONI Administration Senna/Docusate Sodium 2 tab 01/02/24 09:00 01/04/24 17:39 Sennosides-Docusate Tablet PO 2 tab BID YONI Administration Sucralfate 1 gm 01/03/24 11:00 01/04/24 20:31 Sucralfate 1 Gm/10 Ml Oral Liq Udc PO 1 gm AC&BEDTIME YONI Administration Tizanidine HCl 4 mg 01/02/24 09:00 01/04/24 20:30 Tizanidine 4 Mg Tablet PO 4 mg TID YONI Administration Vitamin D 1,000 unit 01/02/24 09:00 01/04/24 08:40 Cholecalciferol (Vitamin D3) 1,000 Unit Tablet PO 1,000 unit DAILY YONI Administration PFSH Acute 2 PFSH: Medical History Dislocation of hip joint prosthesis Pulmonary artery abnormality Primary osteoarthritis of left knee Injury caused by twisting MCL sprain of left knee Left anterior knee pain Osteoarthritis of left hip Seizure disorder GERD (gastroesophageal reflux disease) Hypothyroidism HTN (hypertension) Peripheral arterial disease History of femoral angiogram CAD (coronary artery disease) Throat cancer Surgical History History of left hip hemiarthroplasty Date of procedure: December 09, 2023. Pre-op diagnosis: Avascular necrosis left femoral head with painful retained hardware. Procedure done: Left hip arthroplasty with revision components following removal of gamma 3 nail, long, and with supplemental adductor tenotomy. Implants: The [employer] total hip system with the tenriism modular hip system with a size 155 stem by 16 mm diameter, a 21 mm proximal cone with +0 and V40, a size 43 mm outer diameter by 26 mm inner diameter universal head bipolar component and a 26 mm +0 chrome cobalt femoral head. Surgeon: Nayana Cerna MD. S/P aortobifemoral bypass surgery History of hip surgery H/O tubal ligation Family History Mother Osteoarthritis Sister Thyroid disease Social History Smoking and tobacco/nicotine status: current every day tobacco/nicotine user (0.5 ppd) cigarettes Packs smoked per day: 0.5 Years cigarettes smoked: 37 Quit status (tobacco/nicotine): considering quitting Second hand smoke exposure: Yes Alcohol intake: current Alcohol intake frequency: few times a week Substance/Drug Use: never Caregiver/support person: Yes Lives independently: Yes Household members: none Housing: Manufactured/Mobile home Marital status: / Current occupational status: disabled Pets and animals: Yes Do you think of yourself as: Straight/Heterosexual Current gender identity: Female Agree to transfusion: No Vitals/I&O/Wt Last Vital Signs Temp 97.3 F L 01/04/24 19:26 Pulse 101 H 01/04/24 19:48 Resp 16 01/04/24 20:29 BP 101/65 01/04/24 19:26 Pulse Ox 97 01/04/24 19:48 O2 Del Method Room Air 01/04/24 19:48 O2 Flow Rate 1 01/02/24 08:32 01/04/24 01/04/24 01/04/24 06:59 14:59 22:59 Intake Total 240 / 1080 480 / 480 490 / 970 Balance 240 / 680 480 / 480 490 / 970 Weight last 48 hrs Weight 132 lb 11.2 oz Weight 132 lb 12.8 oz Physical Exam 2 Narrative: General : Patient is well developed , no acute distress, oriented x3 Head : Normal cephalic, a-traumatic. Ears : Pinnae and external canal are normal. Hearing is normal. Eyes : PERRLA, Sclera and injection are normal. No conjunctival discharge. Nose : Mucous membranes are without erythema. Throat : buccal mucosa is normal, gums are without significant recession or hypertrophy. Lungs : Equal chest rise bilaterally, no use of accessory muscles, trachea is midline. Cor : Rate and rhythm are normal. Abdomen : Soft, ND, NT, no g/r/m Extremities : No edema, no cyanosis or clubbing, dorsalis pedis pulses are present bilaterally, non-tender to palpation of calves. Upper extremities are normal bilaterally. Back : non-tender to palpation, no CVA tenderness. Neuro : CN II - XII intact, Upper and lower extremities have equal and full strength Urinary Catheter Management: Bullard: Cath Placed During This Visit: yes, but has since been removed by the nurse Reason for Continuing Indwelling Catheter: Decision to DC Catheter Urinary Catheter Date of Insertion: 01/01/24 Urinary Catheter Time of Insertion: 18:40 Date Urinary Catheter Removed: 01/02/24 Time Urinary Catheter Discontinued: 06:51 Data 01/04/24 18:46 01/04/24 03:00 Micro: Microbiology 01/01/24 19:00 Gram Stain - Final Hip - #2 Anaerobic Culture - Preliminary Wound Culture - Preliminary 01/01/24 19:00 Gram Stain - Final Hip - #1 Anaerobic Culture - Preliminary Wound Culture - Preliminary 01/04/24 09:15 Occult Blood (FIT) - Final Stool A&P Assessment and plan (1) GI bleed: (2) Anemia: Plan Complete bowel prep today N.p.o. after midnight Tomorrow for EGD and colonoscopy The risks and benefits of the procedure, including bleeding, infection, intestinal perforation requiring surgery, missed lesion were explained to the patient. The patient is understanding of the risks and wishes to proceed. Coding Level of Care Code 02270 Diagnoses GI bleed K92.2 Anemia D64.9
[2024-01-04] MEDS: sodium chloride 0.9% 1,000 ML 75 ML IV (22:48)
[2024-01-05] VITALS (19 sets, daily range): BP systolic 99–140; BP diastolic 57–82; PULSE 92–121; RESP 12–20; TEMP 36.3–36.8; O2SAT 95–100
[2024-01-05 01:46] LABS: Hematocrit 30.5 % (36-47)
[2024-01-05] MEDS: oxyCODONE 5 mg IR Tab/Cap 15 MG PO ×4 (04:27→18:09)
[2024-01-05 04:37] LABS: Basophils % 0.4 %; Eosinophils # 0.3 10^3/uL (0.0-0.8); Eosinophils % 3.4 %; Hematocrit 28.5 % (36-47); Lymphocytes % 44.9 %; Mean Corpuscular HGB Conc 32.3 g/dL (30-55); Mean Corpuscular Hemoglobin 29.3 pg (27-33); Mean Corpuscular Volume 90.8 fl (85-98); Mean Platelet Volume 9.2 fL (7.4-10.4); Monocytes # 0.7 10^3/uL (0.2-0.9); Monocytes % 7.4 %; Neutrophils # 3.91 10^3/uL (1.8-7.7); Neutrophils % 43.6 %; Nucleated Red Blood Cells % 0 %; Platelet Count 188 10^3/cmm (157-399); Red Blood Count 3.14 10^6/uL (3.85-5.65)
[2024-01-05 04:59] LABS: Anion Gap 10.4 (5-19); Blood Urea Nitrogen 7 mg/dL (6-20); Calcium 9.2 mg/dL (8.5-10.5); Carbon Dioxide 27 mmol/L (22-29); Chloride 110 mmol/L (98-107); Creatinine Clr Calc Pharmacy 111.2455; Glomerular Filtration Rate 129.1 mL/min (90-130); Glucose 82 mg/dL (65-115); Osmolality Calculated 295 mOsm/kg (285-295); Potassium 3.4 mmol/L (3.5-5.1); Sodium 144 mmol/L (136-145)
--- NOTE | 2024-01-05 06:52 | P.ANESASSM_ITS ---
Pre-Anesthetic Assessment Height/Weight: Height 1.6 m Weight 56.79 kg Temp Pulse Resp BP Pulse Ox O2 Del Method O2 Flow Rate 97.5 F L 99 16 99/62 97 Room Air 1 01/05/24 03:26 01/05/24 05:43 01/05/24 04:27 01/05/24 03:26 01/05/24 03:26 01/05/24 03:26 01/02/24 08:32 Operation Date: 01/01/24 14:35 Proposed Procedures p CONVERSION FROM LEFT HEMIARTHROPLASTY TO TOTAL HIP ARTHROPLASTY(Left) - Nayana Cerna MD Operation Date: 01/05/24 07:15 Proposed Procedures p EGD(Not Applicable) - DO shanon Mcgee Colonoscopy(Not Applicable) - Hector Grigsby DO Familial anesthetic complications: None Was Beta Milly taken within 24 hours: N/A Was Clonidine taken within 24 hours: N/A Last intake: Intake Last Liquid Date 01/04/24 Last Liquid Time 23:45 Last Solid Date 01/04/24 Last Solid Time 17:00 Social Tobacco and No alcohol .5 pack(s) per day Exam alert, oriented x 3, clear to auscultation bilaterally and regular rate & rhythm Airway Submandibular: within normal limits Cervical ROM: within normal limits Mallampati: Class II Comments: Comments: Partial History/ROS No significant history except as noted and No significant complaints Pulmonary Chronic Obstructive Pulmonary Disease, Exertional Dyspnea and Sleep Apnea CV/HEM Anemia, Arrythmia, Coronary Artery Disease, Hypertension and Myocardial Infarction (Stent x1, year unknown) None reported Hepatic None reported GI Gastroesophageal Reflux Disease Metabolic Thyroid Disease Musc/skel Lower Back Pain, Osteoarthritis/DJD and Weakness Neuropsych Anxiety, Depression, Headache and Seizure (>20 years ago) Anesthetic Plan ASA status: 3 Anesthesia: Anesthesia Evaluation, General and MAC Risk of > 500 ml blood loss (7ml/kg in children): No Medications/Allergies Home Medications Medication Instructions Recorded Confirmed Last Taken Type cetirizine 10 mg capsule 10 mg PO DAILY 07/24/20 01/02/24 12/31/23 History clopidogrel 75 mg tablet 75 mg PO DAILY 07/24/20 01/02/24 12/26/23 History montelukast 10 mg tablet 10 mg PO DAILY 07/24/20 01/02/24 12/31/23 History promethazine 25 mg tablet 25 mg PO TID PRN Nausea And 07/24/20 01/02/24 12/31/23 History Vomiting albuterol sulfate 90 mcg/actuation 2 inh inhalation Q4H PRN Shortness 10/10/20 12/31/23 12/31/23 History breath activated powder inhaler Of Breath oxycodone myristate 27 mg capsule 27 mg PO BID 10/10/20 01/02/24 01/01/24 History sprinkle extended release 12hr(DON'T CRUSH) (Xtampza ER) fluticasone fur. 100 mcg-umeclid 1 inh inhalation DAILY #60 ea 02/11/22 01/02/24 12/31/23 Rx 62.5 mcg-vilant 25 mcg inhalat.powder (Trelegy Ellipta) ipratropium 0.5 mg-albuterol 3 mg 3 ml inhalation Q4H PRN wheezing 03/08/22 01/02/24 12/31/23 Rx (2.5 mg base)/3 mL nebulization #90 mL soln levothyroxine 112 mcg capsule 100 mcg PO DAILY 03/08/22 01/02/24 12/31/23 History naloxone 4 mg/actuation nasal 1 ea intranasal PRN PRN overdose 03/11/22 01/02/24 Unknown History spray (Narcan) nitroglycerin 0.4 mg sublingual 0.4 mg sublingual Q5M PRN chest 03/11/22 01/02/24 Unknown Rx tablet pain #25 tabs acapella device #1 ea 06/25/22 01/02/24 Unknown Rx tizanidine 4 mg tablet 4 mg PO TID PRN MUSCLE SPASMS 03/11/23 01/02/24 12/08/23 History alprazolam 2 mg tablet 2 mg PO DAILY PRN Anxiety 04/29/23 01/02/24 12/31/23 History aspirin 81 mg tablet,delayed 81 mg PO DAILY 04/29/23 01/02/24 12/31/23 History release (Adult Low Dose Aspirin) cholecalciferol (vitamin D3) 25 25 mcg PO DAILY 04/29/23 01/02/24 12/31/23 History mcg (1,000 unit) capsule colchicine 0.6 mg tablet (Colcrys) 0.6 mg PO BID 04/29/23 01/02/24 12/31/23 History mirtazapine 15 mg tablet 15 mg PO BEDTIME 04/29/23 01/02/24 12/31/23 History multivitamin 1 tab PO DAILY 04/29/23 01/02/24 12/31/23 History omeprazole magnesium 20 mg 20 mg PO BID 04/29/23 01/02/24 12/31/23 History capsule,delayed release Hinged Knee Brace #1 ea 09/24/23 01/02/24 Unknown Rx Bedside Commode #1 ea 12/03/23 01/02/24 Unknown Rx cilostazol 100 mg tablet 100 mg PO BID 12/08/23 01/02/24 12/31/23 History simvastatin 40 mg tablet 40 mg PO DAILY 12/08/23 01/02/24 12/31/23 History oxycodone 15 mg tablet 15 mg PO Q4H PRN Pain #10 tabs 12/14/23 01/02/24 01/01/24 Rx bupropion HCl 150 mg tablet,12 hr 150 mg PO BID 01/02/24 01/02/24 12/31/23 History sustained-release gabapentin 300 mg capsule 300 mg PO TID 01/02/24 01/02/24 12/31/23 History guaifenesin 100 mg/5 mL oral liquid 200 mg PO Q4H PRN COUGH AND 01/02/24 01/02/24 Unknown History CONGESTION metoprolol tartrate 50 mg tablet 50 mg PO BID 01/02/24 01/02/24 12/31/23 History Allergies Allergy/AdvReac Type Severity Reaction Status Date / Time adhesive Allergy Unknown rash Verified 12/22/23 13:26 amoxicillin Allergy Unknown rash Verified 12/22/23 13:26 aspirin Allergy Unknown Verified 12/22/23 13:26 hydroxyzine Allergy rash Verified 12/22/23 13:26 morphine Allergy Unknown Verified 12/22/23 13:26 nicotine [From Nicotrol] Allergy Unknown Verified 12/22/23 13:26 nitrofurantoin Allergy ALGY-Wheezi Verified 12/22/23 13:26 [From Macrobid] ng petrolatum,white Allergy rash Verified 12/22/23 13:26 [From Vaseline] vancomycin Allergy rash Verified 12/22/23 13:26 Current Medications Generic Name Dose Route Start Last Admin Trade Name Freq PRN Reason Stop Dose Admin Acetaminophen 1,000 mg 01/02/24 23:00 01/04/24 22:48 Acetaminophen 500 Mg Tablet PO 1,000 mg Q8H YONI Administration Albuterol/Ipratropium 3 ml 01/01/24 23:53 01/03/24 20:46 Ipratropium-Albuterol 3 Ml Neb INHALATION 3 ml Q4H PRN Administration wheezing Alprazolam 2 mg 01/01/24 23:58 01/04/24 20:33 Alprazolam 0.5 Mg Tablet PO 2 mg DAILY PRN Administration Anxiety Aspirin 81 mg 01/03/24 09:00 01/04/24 08:40 Aspirin 81 Mg Ec Tablet PO 81 mg DAILY YONI Administration Atorvastatin Calcium 20 mg 01/02/24 09:00 01/04/24 08:40 Atorvastatin 40 Mg Tablet PO 20 mg DAILY YONI Administration Budesonide 0.5 mg 01/02/24 08:00 01/04/24 19:48 Budesonide 0.5 Mg/2 Ml Neb INHALATION 0.5 mg BID.RESPIRATORY YONI Administration Bupropion HCl 150 mg 01/02/24 09:00 01/04/24 17:38 Bupropion Sr (12 Hr) 100 Mg Tablet PO 150 mg BID YONI Administration Calcium Carbonate 1,000 mg 01/02/24 09:00 01/04/24 17:38 Calcium Carbonate 500 Mg Chew Tablet PO 1,000 mg BID YONI Administration Chlorhexidine Gluconate 30 ml 01/02/24 09:00 01/04/24 20:31 Chlorhexidine Gluconate 0.12% Btl 473 Ml MUCOUS MEM 30 ml QID YONI Administration Clopidogrel Bisulfate 75 mg 01/02/24 09:00 01/04/24 08:40 Clopidogrel 75 Mg Tablet PO 75 mg DAILY YONI Administration Colchicine 0.6 mg 01/02/24 09:00 01/04/24 17:38 Colchicine 0.6 Mg Tablet PO 0.6 mg BID YONI Administration Gabapentin 300 mg 01/02/24 15:00 01/04/24 20:30 Gabapentin 300 Mg Capsule PO 300 mg TID YONI Administration Sodium Chloride 1,000 mls @ 75 mls/hr 01/04/24 23:00 01/05/24 06:17 Sodium Chloride 0.9% IV 0 mls/hr .[id number] YONI Infusion Levothyroxine Sodium 100 mcg 01/02/24 07:00 01/04/24 06:11 Levothyroxine 100 Mcg Tablet PO 100 mcg DAILY@0700 YONI Administration Loratadine 10 mg 01/02/24 09:00 01/04/24 08:39 Loratadine 10 Mg Tablet PO 10 mg DAILY YONI Administration Mirtazapine 7.5 mg 01/02/24 21:00 01/04/24 20:30 Mirtazapine 15 Mg Tablet PO 7.5 mg BEDTIME YONI Administration Montelukast Sodium 10 mg 01/02/24 09:00 01/04/24 08:40 Montelukast Sodium 10 Mg Tablet PO 10 mg DAILY YONI Administration Multivitamins Therapeutic 1 tab 01/02/24 09:00 01/04/24 08:40 Multivitamin Therapeutic Tablet PO 1 tab DAILY YONI Administration Mupirocin 1 applic 01/02/24 09:00 01/04/24 17:40 Mupirocin Oint 22 Gm NASAL 01/07/24 08:59 1 applic BID YONI Administration Ondansetron HCl 4 mg 01/01/24 23:53 01/02/24 00:21 Ondansetron 2 Mg/Ml Sdv 2 Ml IVP 4 mg Q6H PRN Administration NAUSEA AND VOMITING Oxycodone HCl 15 mg 01/02/24 03:57 01/05/24 04:27 Oxycodone 5 Mg Ir Tab/Cap PO 15 mg Q4H PRN Administration SEVERE PAIN Oxycodone HCl 30 mg 01/02/24 20:00 01/04/24 20:29 Oxycodone 10 Mg Er (12 Hr) Tablet PO 30 mg Q12H YONI Administration Pantoprazole Sodium 40 mg 01/04/24 10:30 01/04/24 22:48 Pantoprazole 40 Mg Sdv IVP 40 mg Q12H YONI Administration Polysaccharide Iron Complex 150 mg 01/02/24 08:00 01/04/24 17:39 Iron Polysaccharide Complex 150 Mg Capsule PO 150 mg BIDWM YONI Administration Senna/Docusate Sodium 2 tab 01/02/24 09:00 01/04/24 17:39 Sennosides-Docusate Tablet PO 2 tab BID YONI Administration Sucralfate 1 gm 01/03/24 11:00 01/04/24 20:31 Sucralfate 1 Gm/10 Ml Oral Liq Udc PO 1 gm AC&BEDTIME YONI Administration Tizanidine HCl 4 mg 01/02/24 09:00 01/04/24 20:30 Tizanidine 4 Mg Tablet PO 4 mg TID YONI Administration Vitamin D 1,000 unit 01/02/24 09:00 01/04/24 08:40 Cholecalciferol (Vitamin D3) 1,000 Unit Tablet PO 1,000 unit DAILY YONI Administration PFS Anesthesia Medical History Dislocation of hip joint prosthesis Pulmonary artery abnormality Primary osteoarthritis of left knee Injury caused by twisting MCL sprain of left knee Left anterior knee pain Osteoarthritis of left hip Seizure disorder GERD (gastroesophageal reflux disease) Hypothyroidism HTN (hypertension) Peripheral arterial disease History of femoral angiogram CAD (coronary artery disease) Throat cancer Surgical History History of left hip hemiarthroplasty Date of procedure: December 09, 2023. Pre-op diagnosis: Avascular necrosis left femoral head with painful retained hardware. Procedure done: Left hip arthroplasty with revision components following removal of gamma 3 nail, long, and with supplemental adductor tenotomy. Implants: The [employer] total hip system with the jehovah's witness modular hip system with a size 155 stem by 16 mm diameter, a 21 mm proximal cone with +0 and V40, a size 43 mm outer diameter by 26 mm inner diameter universal head bipolar component and a 26 mm +0 chrome cobalt femoral head. Surgeon: Nayana Cerna MD. S/P aortobifemoral bypass surgery History of hip surgery H/O tubal ligation Family History Mother Osteoarthritis Sister Thyroid disease Social History Smoking and tobacco/nicotine status: current every day tobacco/nicotine user (0.5 ppd) cigarettes Packs smoked per day: 0.5 Years cigarettes smoked: 37 Quit status (tobacco/nicotine): considering quitting Second hand smoke exposure: Yes Alcohol intake: current Alcohol intake frequency: few times a week Substance/Drug Use: never Caregiver/support person: Yes Lives independently: Yes Household members: none Housing: Manufactured/Mobile home Marital status: / Current occupational status: disabled Pets and animals: Yes Do you think of yourself as: Straight/Heterosexual Current gender identity: Female Agree to transfusion: No Data Anesthesia 01/05/24 03:55 01/05/24 03:55 Short CBC 01/03/24 01/04/24 01/04/24 Range/Units 09:24 03:00 13:12 WBC 10.58 10.77 (3.29-11.43) 10^3/uL Hgb 8.30 L 7.70 L 7.10 L (11.27-16.99) g/dL Hct 26.9 L 25.0 L 23.0 L (36-47) % MCV 94.4 94.3 (85-98) fl Plt Count 198 207 (157-399) 10^3/cmm Neut % (Auto) 46.7 53.2 % Neut # (Auto) 4.94 5.73 (1.8-7.7) 10^3/uL 01/04/24 01/05/24 01/05/24 Range/Units 18:46 01:35 03:55 WBC 9.00 (3.29-11.43) 10^3/uL Hgb 8.90 L 9.90 L 9.20 L (11.27-16.99) g/dL Hct 27.7 L 30.5 L 28.5 L (36-47) % MCV 90.8 (85-98) fl Plt Count 188 (157-399) 10^3/cmm Neut % (Auto) 43.6 % Neut # (Auto) 3.91 (1.8-7.7) 10^3/uL BMP 01/04/24 01/05/24 03:00 03:55 Sodium 140 144 Potassium 3.8 3.4 L Chloride 108 H 110 H Carbon Dioxide 24 27 BUN 12 7 Creatinine 0.6 0.5 Glucose 108 82 Calcium 9.1 9.2 Cardiac Enzymes 01/03/24 01/03/24 01/03/24 Range/Units 09:24 12:00 15:45 Troponin T Baseline 28 H (0-10) ng/L Troponin T 120 Minute 24.11 H (0-10) ng/L Delta Troponin T -3.89 L (0-10) ABS# Troponin T Hi Sens 6Hr 23.37 H (0-10) ng/L Troponin T Hi Sens 6Hr Delta -4.63 L (0-12) ng/L Urine 01/03/24 Range/Units 20:30 Urine Color Yellow (Yellow) Urine Appearance Clear (CLEAR) Urine pH 7 (5-7) Ur Specific [place] 1.000 L (1.005-1.030) Urine Protein Neg (Negative) Urine Glucose (UA) Norm (Normal) Urine Ketones Negative (Negative) Urine Nitrate Negative (Negative) Urine Bilirubin Neg (Negative) Ur Leukocyte Esterase Negative (Negative) Blood Bank 01/02/24 14:05 Blood Type A Positive Rho(D) Type Rh positive Antibody Screen Negative Microbiology 01/01/24 19:00 Gram Stain - Final Hip - #2 Anaerobic Culture - Preliminary Wound Culture - Preliminary 01/01/24 19:00 Gram Stain - Final Hip - #1 Anaerobic Culture - Preliminary Wound Culture - Preliminary 01/04/24 09:15 Occult Blood (FIT) - Final Stool Cardiac Studies: 2 Sestamibi Stress Test (Cardiology) 08/21
--- NOTE | 2024-01-05 07:05 | P.PN_ITS ---
Subjective 2 Subjective: Patient seen and examined. Denies any bloody bowel movements or abdominal pain Vitals/I&O/Wt Last Vital Signs Temp 97.5 F L 01/05/24 03:26 Pulse 99 01/05/24 05:43 Resp 16 01/05/24 04:27 BP 99/62 01/05/24 03:26 Pulse Ox 97 01/05/24 03:26 O2 Del Method Room Air 01/05/24 03:26 O2 Flow Rate 1 01/02/24 08:32 01/04/24 01/05/24 01/05/24 22:59 06:59 14:59 Intake Total 490 / 970 561.25 / 1531.25 Output Total Balance 490 / 970 560.25 / 1530.25 Weight last 48 hrs Weight 125 lb 3.2 oz Weight 132 lb 11.2 oz Physical Exam 2 Narrative: General: No acute distress, awake alert and oriented x 3 Abdomen: Soft, nontender, nondistended Urinary Catheter Management: Bullard: Cath Placed During This Visit: yes, but has since been removed by the nurse Reason for Continuing Indwelling Catheter: Decision to DC Catheter Urinary Catheter Date of Insertion: 01/01/24 Urinary Catheter Time of Insertion: 18:40 Date Urinary Catheter Removed: 01/02/24 Time Urinary Catheter Discontinued: 06:51 Data 01/05/24 03:55 01/05/24 03:55 Micro: Microbiology 01/01/24 19:00 Gram Stain - Final Hip - #2 Anaerobic Culture - Preliminary Wound Culture - Preliminary 01/01/24 19:00 Gram Stain - Final Hip - #1 Anaerobic Culture - Preliminary Wound Culture - Preliminary 01/04/24 09:15 Occult Blood (FIT) - Final Stool A&P Assessment and plan (1) GI bleed: (2) Anemia: Plan EGD and colonoscopy The risks and benefits of the procedure, including bleeding, infection, intestinal perforation requiring surgery, missed lesion were explained to the patient. The patient is understanding of the risks and wishes to proceed. Attestations 2 Medical Necessity Statement*: Per primary Coding Level of Care Code 18135 Diagnoses GI bleed K92.2 Anemia D64.9
[2024-01-05] MEDS: sodium chloride 0.9% 1,000 ML 30 ML IV (07:13)
[2024-01-05] MEDS: potassium chloride ER 20 mEq Tablet 40 MEQ PO (09:13)
[2024-01-05] MEDS: loratadine 10 mg Tablet PO (09:14)
[2024-01-05] MEDS: aspirin 81 mg EC Tablet PO (09:14)
[2024-01-05] MEDS: sennosides-docusate Tablet 2 TAB PO (09:14)
[2024-01-05] MEDS: cholecalciferol (vitamin D3) 1,000 unit Tablet 1000 UNIT PO (09:14)
[2024-01-05] MEDS: gabapentin 300 mg Capsule PO ×3 (09:14→20:40)
[2024-01-05] MEDS: colchicine 0.6 mg Tablet 0.599999999999999978 MG PO ×2 (09:14→18:09)
[2024-01-05] MEDS: multivitamin therapeutic Tablet 1 TAB PO (09:15)
[2024-01-05] MEDS: atorvastatin 40 mg Tablet 20 MG PO (09:15)
[2024-01-05] MEDS: chlorhexidine gluconate 0.12% Btl 473 mL 30 ML MUCOUS MEM ×2 (09:15→14:09)
[2024-01-05] MEDS: tizanidine 4 mg Tablet PO ×3 (09:15→20:41)
[2024-01-05] MEDS: montelukast sodium 10 mg Tablet PO (09:15)
[2024-01-05] MEDS: pantoprazole 40 mg SDV IVP (09:15)
[2024-01-05] MEDS: mupirocin oint 22 gm 1 APPLIC NASAL ×2 (09:16→18:09)
[2024-01-05] MEDS: buPROPion SR (12 HR) 100 mg Tablet 150 MG PO ×2 (09:21→18:08)
--- NOTE | 2024-01-05 11:29 | PC.SOCIAL ---
IMM updated Updated pt on IMM. No questions voiced. Provided pt a copy. Initialed, dated, & timed copy in chart.
[2024-01-05] MEDS: acetaminophen 500 mg Tablet 1000 MG PO ×2 (14:09→22:21)
[2024-01-05] MEDS: sodium chloride 0.9% 1,000 ML 75 ML IV (14:10)
--- NOTE | 2024-01-05 17:28 | P.PN_ITS ---
Subjective 2 Subjective: The patient is seen in her room. She is in excellent spirits. She is doing well. She has no complaints today. She has been fitted with her abduction brace. Medications: Reviewed: Yes Vitals/I&O/Wt Last Vital Signs Temp 97.7 F 01/05/24 17:09 Pulse 97 01/05/24 17:09 Resp 18 01/05/24 17:09 BP 128/73 01/05/24 17:09 Pulse Ox 98 01/05/24 17:09 O2 Del Method Room Air 01/05/24 17:09 O2 Flow Rate 1 01/02/24 08:32 01/05/24 01/05/24 01/05/24 06:59 14:59 22:59 Intake Total 561.25 / 1531.25 1237.00 / 1237.00 Output Total Balance 560.25 / 1530.25 1237.00 / 1237.00 Weight last 48 hrs Weight 125 lb 3.2 oz Weight 132 lb 11.2 oz Physical Exam 2 Const: COMMON NORMALS: no acute distress, average body habitus, patient oriented x3 and alert GENERAL APPEARANCE: cooperative and comfortable O RIENTATION/CONSCIOUSNESS: Yes awake HENMT: COMMON NORMALS: normocephalic and atraumatic HEAD & SCALP: n ormocephalic and atraumatic Eye: GENERAL EYE: appearance normal, both eyes and all related structures Chest: COMMONS NORMALS: normal inspection of the chest Resp: COMMON NORMALS: normal respiratory effort EFFORT & INSPECTION: Yes able to speak in complete sentences and Yes symmetric chest movement Extremity: LEFT LOWER EXTREMITY: Yes hip joint (Dressing is dry and intact.) Left hip: Yes inspection (Patient is tolerating her abduction brace.), Yes palpation (Minimal to no tenderness.), Yes ROM (Not evaluated.) and Yes neurovascular exam (Intact distally with no evidence of DVT) Neuro: COMMON NORMALS: patient oriented x3 SENSORIUM/ORIENTATION: Yes alert Psych: COMMON NORMALS: mental status grossly normal APPEARANCE: Yes grossly normal ATTITUDE: Yes calm and Yes engaged ATTENTION/CONCENTRATION: Yes attention grossly intact Skin: COMMON NORMALS: no rashes or lesions noted GENERAL SKIN EXAM: no rashes or lesions noted Urinary Catheter Management: Bullard: Cath Placed During This Visit: yes, but has since been removed by the nurse Reason for Continuing Indwelling Catheter: Decision to DC Catheter Urinary Catheter Date of Insertion: 01/01/24 Urinary Catheter Time of Insertion: 18:40 Date Urinary Catheter Removed: 01/02/24 Time Urinary Catheter Discontinued: 06:51 Data 01/05/24 03:55 01/05/24 03:55 Micro: Microbiology 01/01/24 19:00 Gram Stain - Final Hip - #1 Anaerobic Culture - Preliminary Wound Culture - Final 01/01/24 19:00 Gram Stain - Final Hip - #2 Anaerobic Culture - Preliminary Wound Culture - Final A&P Assessment and plan (1) Dislocation of hip joint prosthesis: Patient underwent bipolar hip arthroplasty for avascular necrosis following a long gamma nail. Postoperatively, she dislocated twice secondary to a shallow acetabulum which was noted at the time of initial surgery. Her cartilage at that time was noted to be good, and decision was made not to proceed with total hip arthroplasty because of this. Unfortunately, this has remained unstable for her and she presented for revision total hip arthroplasty. Currently, the patient is doing well. She has had anemia postoperatively, and today, she had a colonoscopy which did not demonstrate a cause for her anemia. She will likely require retirement at the time of discharge, and we are pending authorization to [place]. The patient initially thought she wanted to go home, but she is now in agreement with this decision. Plans were made for discharge home tomorrow provided the patient is accepted. Qualifiers: Encounter type: initial encounter Qualified Code(s): T84.029A - Dislocation of unspecified internal joint prosthesis, initial encounter; Z96.649 - Presence of unspecified artificial hip joint (2) S/P total left hip arthroplasty: (3) Avascular necrosis of bone of left hip: Attestations 2 Medical Necessity Statement*: Ongoing care following complex left hip revision. Coding Level of Care Code Acute Code for Chg Fwd Diagnoses Dislocation of hip joint prosthesis, initial encounter T84.029A; Z96.649 Encounter type: initial encounter S/P total left hip arthroplasty Z96.642 Avascular necrosis of bone of left hip M87.052
[2024-01-05] MEDS: calcium carbonate 500 mg Chew Tablet 1000 MG PO (18:08)
[2024-01-05] MEDS: iron polysaccharide complex 150 mg Capsule PO (18:09)
[2024-01-05] MEDS: oxyCODONE 10 mg ER (12 HR) Tablet 30 MG PO (20:39)
[2024-01-05] MEDS: mirtazapine 15 mg Tablet 7.5 MG PO (20:41)
[2024-01-05] MEDS: ALPRAZolam 0.5 mg Tablet 2 MG PO (20:43)
[2024-01-05] MEDS: budesonide 0.5 mg/2 mL Neb INHALATION (20:56)
[2024-01-06] VITALS (13 sets, daily range): BP systolic 121–147; BP diastolic 70–88; PULSE 91–114; RESP 14–20; TEMP 36.2–37.4; O2SAT 95–98
[2024-01-06] MEDS: oxyCODONE 5 mg IR Tab/Cap 15 MG PO ×4 (02:53→23:01)
[2024-01-06] MEDS: sodium chloride 0.9% 1,000 ML 75 ML IV ×2 (02:54→17:23)
[2024-01-06] MEDS: tizanidine 4 mg Tablet PO ×3 (04:21→20:19)
--- NOTE | 2024-01-06 04:48 | PC.NURSE ---
pt used beside commode and was unable to measure out put
[2024-01-06 05:23] LABS: Basophils # 0.1 10^3/uL (0.0-0.1); Basophils % 0.5 %; Eosinophils # 0.3 10^3/uL (0.0-0.8); Eosinophils % 3.7 %; Hematocrit 27.1 % (36-47); Lymphocytes # 3.8 10^3/uL (0.8-4.8); Mean Corpuscular HGB Conc 32.1 g/dL (30-55); Mean Corpuscular Hemoglobin 29.8 pg (27-33); Mean Corpuscular Volume 92.8 fl (85-98); Mean Platelet Volume 9.1 fL (7.4-10.4); Monocytes # 0.7 10^3/uL (0.2-0.9); Monocytes % 7.4 %; Neutrophils % 46.2 %; Nucleated Red Blood Cells % 0 %; Platelet Count 233 10^3/cmm (157-399); Red Blood Count 2.92 10^6/uL (3.85-5.65); Red Cell Distribution Width 16.8 % (12.1-15.1)
[2024-01-06 05:51] LABS: Anion Gap 13.8 (5-19); Blood Urea Nitrogen 5 mg/dL (6-20); Carbon Dioxide 23 mmol/L (22-29); Chloride 109 mmol/L (98-107); Creatinine Clr Calc Pharmacy 104.4618; Glomerular Filtration Rate 129.1 mL/min (90-130); Glucose 119 mg/dL (65-115); Osmolality Calculated 292 mOsm/kg (285-295); Potassium 3.8 mmol/L (3.5-5.1); Sodium 142 mmol/L (136-145)
[2024-01-06] MEDS: levothyroxine 100 mcg Tablet PO (06:56)
[2024-01-06] MEDS: acetaminophen 500 mg Tablet 1000 MG PO ×3 (06:56→23:01)
[2024-01-06] MEDS: buPROPion SR (12 HR) 100 mg Tablet 150 MG PO ×2 (09:06→17:22)
[2024-01-06] MEDS: atorvastatin 40 mg Tablet 20 MG PO (09:06)
[2024-01-06] MEDS: colchicine 0.6 mg Tablet 0.599999999999999978 MG PO ×2 (09:06→17:22)
[2024-01-06] MEDS: gabapentin 300 mg Capsule PO ×3 (09:07→20:18)
[2024-01-06] MEDS: loratadine 10 mg Tablet PO (09:07)
[2024-01-06] MEDS: iron polysaccharide complex 150 mg Capsule PO ×2 (09:07→17:22)
[2024-01-06] MEDS: montelukast sodium 10 mg Tablet PO (09:07)
[2024-01-06] MEDS: oxyCODONE 10 mg ER (12 HR) Tablet 30 MG PO ×2 (09:07→20:18)
[2024-01-06] MEDS: cholecalciferol (vitamin D3) 1,000 unit Tablet 1000 UNIT PO (09:07)
[2024-01-06] MEDS: calcium carbonate 500 mg Chew Tablet 1000 MG PO ×2 (09:07→17:22)
[2024-01-06] MEDS: aspirin 81 mg EC Tablet PO (09:08)
[2024-01-06] MEDS: mupirocin oint 22 gm 1 APPLIC NASAL ×2 (09:08→17:22)
[2024-01-06] MEDS: chlorhexidine gluconate 0.12% Btl 473 mL 30 ML MUCOUS MEM ×2 (09:08→17:22)
[2024-01-06] MEDS: multivitamin therapeutic Tablet 1 TAB PO (09:08)
[2024-01-06] MEDS: budesonide 0.5 mg/2 mL Neb INHALATION (09:22)
[2024-01-06] MEDS: pantoprazole 40 mg SDV IVP (10:26)
--- NOTE | 2024-01-06 12:00 | P.PN_ITS ---
Subjective 2 Subjective: Patient continues to do well. She is just awaiting placement to senior care for postoperative treatment. She was considering discharge to home, but changed her mind on this, and I am in agreement that she would likely benefit from inpatient rehab Medications: Reviewed: Yes Vitals/I&O/Wt Last Vital Signs Temp 98 F 01/08/24 08:00 Pulse 86 01/08/24 08:19 Resp 16 01/08/24 08:29 BP 147/81 01/08/24 08:00 Pulse Ox 100 01/08/24 08:19 O2 Del Method Room Air 01/08/24 08:19 O2 Flow Rate 1 01/02/24 08:32 01/07/24 01/08/24 01/08/24 22:59 06:59 14:59 Intake Total 480 / 701.25 240 / 941.25 Balance 480 / 701.25 240 / 941.25 Weight last 48 hrs Weight 123 lb 4 oz Weight 124 lb 8 oz Physical Exam 2 Urinary Catheter Management: Bullard: Cath Placed During This Visit: yes, but has since been removed by the nurse Reason for Continuing Indwelling Catheter: Decision to DC Catheter Urinary Catheter Date of Insertion: 01/01/24 Urinary Catheter Time of Insertion: 18:40 Date Urinary Catheter Removed: 01/02/24 Time Urinary Catheter Discontinued: 06:51 Data 01/06/24 05:08 01/06/24 05:08 Micro: Microbiology 01/01/24 19:00 Gram Stain - Final Hip - #1 Anaerobic Culture - Preliminary Wound Culture - Final 01/01/24 19:00 Gram Stain - Final Hip - #2 Anaerobic Culture - Preliminary Wound Culture - Final A&P Assessment and plan (1) History of revision of total replacement of left hip joint: The patient continues rehabilitation from her revision hip arthroplasty. She is being followed by medicine for multiple medical issues. She has had postoperative anemia and being treated for this as well. (2) Dislocation of hip joint prosthesis: Qualifiers: Encounter type: initial encounter Qualified Code(s): T84.029A - Dislocation of unspecified internal joint prosthesis, initial encounter; Z96.649 - Presence of unspecified artificial hip joint (3) History of left hip hemiarthroplasty: Attestations 2 Medical Necessity Statement*: Ongoing care following revision hip arthroplasty Coding Level of Care Code Acute Code for Chg Fwd Diagnoses History of revision of total replacement of left hip joint Z96.642 Dislocation of hip joint prosthesis, initial encounter T84.029A; Z96.649 Encounter type: initial encounter History of left hip hemiarthroplasty Z96.642
[2024-01-06] MEDS: mirtazapine 15 mg Tablet 7.5 MG PO (20:18)
[2024-01-06] MEDS: ALPRAZolam 0.5 mg Tablet 2 MG PO (20:18)
[2024-01-07] VITALS (13 sets, daily range): BP systolic 134–151; BP diastolic 75–78; PULSE 89–101; RESP 16–20; TEMP 36.7–36.8; O2SAT 96–98
[2024-01-07] MEDS: oxyCODONE 5 mg IR Tab/Cap 15 MG PO ×4 (03:29→21:45)
[2024-01-07] MEDS: tizanidine 4 mg Tablet PO ×3 (04:37→20:27)
[2024-01-07] MEDS: sodium chloride 0.9% 1,000 ML 75 ML IV (06:03)
[2024-01-07] MEDS: levothyroxine 100 mcg Tablet PO (06:04)
[2024-01-07] MEDS: acetaminophen 500 mg Tablet 1000 MG PO ×3 (06:04→23:09)
[2024-01-07] MEDS: budesonide 0.5 mg/2 mL Neb INHALATION (08:15)
--- NOTE | 2024-01-07 08:21 | PC.SOCIAL ---
IMM Updated Updated pt on IMM. No questions voiced. Provided pt a copy. Initialed, dated, & timed copy in chart.
--- NOTE | 2024-01-07 08:24 | P.PN_ITS ---
Subjective 2 Subjective: This is progress note from 01/05/2024 ? Patient was seen after EGD and colonoscopy results, no acute findings, no bloody or black stools ? We did detailed discussion about her discharge, she tells me she wants to go to long-term facility for rehab, will discuss with case workers, Vitals/I&O/Wt Last Vital Signs Temp 98.2 F 01/07/24 07:45 Pulse 92 01/07/24 08:16 Resp 16 01/07/24 08:16 BP 145/76 01/07/24 07:45 Pulse Ox 98 01/07/24 08:16 O2 Del Method Room Air 01/07/24 08:16 O2 Flow Rate 1 01/02/24 08:32 01/06/24 01/07/24 01/07/24 22:59 06:59 14:59 Intake Total 1720 / 2200 1310 / 3510 Balance 1720 / 2200 1310 / 3510 Weight last 48 hrs Weight 56.472 kg Weight 48.534 kg Physical Exam 2 Const: COMMON NORMALS: no acute distress and patient oriented x3 Resp: COMMON NORMALS: normal respiratory effort, No retractions, No use of accessory muscles and clear to auscultation bilaterally AUSCULTATION: clear to auscultation bilaterally Cardio: COMMON NORMALS: regular rate, regular rhythm, S1 normal heart sound present and S2 normal heart sound present RATE: regular rate RHYTHM: r egular rhythm HEART SOUNDS: S1 normal heart sound present and S2 normal heart sound present GI: COMMON NORMALS: Normal to inspection, nondistended, normoactive bowel sounds present and non-tender Extremity: COMMON NORMALS: no pedal edema Neuro: COMMON NORMALS: patient oriented x3 Psych: COMMON NORMALS: mental status grossly normal Urinary Catheter Management: [place]: Cath Placed During This Visit: yes, but has since been removed by the nurse Reason for Continuing Indwelling Catheter: Decision to DC Catheter Urinary Catheter Date of Insertion: 01/01/24 Urinary Catheter Time of Insertion: 18:40 Date Urinary Catheter Removed: 01/02/24 Time Urinary Catheter Discontinued: 06:51 Data 01/06/24 05:08 01/06/24 05:08 Micro: Microbiology 01/01/24 19:00 Gram Stain - Final Hip - #1 Anaerobic Culture - Preliminary Wound Culture - Final 01/01/24 19:00 Gram Stain - Final Hip - #2 Anaerobic Culture - Preliminary Wound Culture - Final A&P Assessment and plan (1) Dislocation of hip joint prosthesis: Patient is postoperative status post revision for hip dislocation ? Decrease aspirin to 81 mg for DVT prophylaxis, ?patient is on Plavix 75 mg Qualifiers: Encounter type: initial encounter Qualified Code(s): T84.029A - Dislocation of unspecified internal joint prosthesis, initial encounter; Z96.649 - Presence of unspecified artificial hip joint (2) Postoperative anemia due to acute blood loss: She has symptomatic anemia Transfusion 2 unit packed red blood cells Colonoscopy in 2020 no acute findings ? No history of EGD hemmocult positive for blood concern for gi bleed, General surgery consulted ? For EGD and colonoscopy, within normal limits ? Monitor hemoglobin monitor hemodynamics Discontinue Pletal Discontinue NSAIDs Secondary to tachycardia baseline EKG was performed see results above. Placed on telemetry. ? Monitor hemoglobin (3) Postoperative hypotension: -Resolved ? Component related to anesthetic ? Component related to postoperative anemia -slow GI bleed ? Holding metoprolol, although she received metoprolol last night -Workup as below ? Metoprolol hold (4) HTN (hypertension): Qualifiers: Hypertension type: primary hypertension Qualified Code(s): I10 - Essential (primary) hypertension (5) CAD (coronary artery disease): Qualifiers: Hypothyroidism type: unspecified Coronary Disease-Associated Artery/Lesion type: [place] artery [place] vs. transplanted heart: [place] heart Associated angina: without angina Qualified Code(s): I25.10 - Atherosclerotic heart disease of [place] coronary artery without angina pectoris (6) Peripheral arterial disease: (7) COPD (chronic obstructive pulmonary disease): Qualifiers: COPD type: unspecified COPD Qualified Code(s): J44.9 - Chronic obstructive pulmonary disease, unspecified (8) Orthostatic hypotension: (9) GI bleed: Plan Plan for today monitor hemodynamics closely, up out of bed, PT OT, working on placement to long-term facility Attestations 2 Medical Necessity Statement*: Patient requires hospitalization for anemia, orthostatic potential GI bleed, postoperative anemia, postoperative hypertension Diagnoses Dislocation of hip joint prosthesis, initial encounter T84.029A; Z96.649 Encounter type: initial encounter Postoperative anemia due to acute blood loss D62 Postoperative hypotension I95.81 Primary hypertension I10 Hypertension type: primary hypertension Coronary artery disease involving [place] coronary artery of [place] heart without angina pectoris I25.10 Hypothyroidism type: unspecified Coronary Disease-Associated Artery/Lesion type: [place] artery [place] vs. transplanted heart: [place] heart Associated angina: without angina Peripheral arterial disease I73.9 Chronic obstructive pulmonary disease, unspecified COPD type J44.9 COPD type: unspecified COPD Orthostatic hypotension I95.1 GI bleed K92.2
--- NOTE | 2024-01-07 08:28 | PM.PN ---
Subjective Subjective: This is progress note for 01/06/2024 ? Patient was seen this morning, has no complaints this morning she is a bit frustrated about being here in the hospital, awaiting placement to snf facility, she tells me that she has good strength, tells me that at times her pain is not well-controlled, she is on multiple narcotics, including extended release oxycodone with oxycodone IR, denies any calf pain or leg no shortness of breath no abdominal pain no chest pain Vitals/I&O/Wt Last Vital Signs Temp 98.2 F 01/07/24 07:45 Pulse 92 01/07/24 08:16 Resp 16 01/07/24 08:16 BP 145/76 01/07/24 07:45 Pulse Ox 98 01/07/24 08:16 O2 Del Method Room Air 01/07/24 08:16 O2 Flow Rate 1 01/02/24 08:32 01/06/24 01/07/24 01/07/24 22:59 06:59 14:59 Intake Total 1720 / 2200 1310 / 3510 Balance 1720 / 2200 1310 / 3510 Weight last 48 hrs Weight 56.472 kg Weight 48.534 kg Physical Exam Const: COMMON NORMALS: no acute distress and patient oriented x3 Resp: COMMON NORMALS: normal respiratory effort, No retractions, No use of accessory muscles and clear to auscultation bilaterally AUSCULTATION: clear to auscultation bilaterally Cardio: COMMON NORMALS: regular rate, regular rhythm, S1 normal heart sound present and S2 normal heart sound present RATE: regular rate RHYTHM: regular rhythm HEART SOUNDS: S1 normal heart sound present and S2 normal heart sound present GI: COMMON NORMALS: Normal to inspection, nondistended, normoactive bowel sounds present and non-tender Extremity: COMMON NORMALS: no pedal edema Neuro: COMMON NORMALS: patient oriented x3 Psych: COMMON NORMALS: mental status grossly normal Urinary Catheter Management: [place]: Cath Placed During This Visit: yes, but has since been removed by the nurse Reason for Continuing Indwelling Catheter: Decision to DC Catheter Urinary Catheter Date of Insertion: 01/01/24 Urinary Catheter Time of Insertion: 18:40 Date Urinary Catheter Removed: 01/02/24 Time Urinary Catheter Discontinued: 06:51 Data 01/06/24 05:08 01/06/24 05:08 Micro: Microbiology 01/01/24 19:00 Gram Stain - Final Hip - #1 Anaerobic Culture - Preliminary Wound Culture - Final 01/01/24 19:00 Gram Stain - Final Hip - #2 Anaerobic Culture - Preliminary Wound Culture - Final A&P Assessment and plan (1) Dislocation of hip joint prosthesis: Patient is postoperative status post revision for hip dislocation ? Decrease aspirin to 81 mg for DVT prophylaxis, ?patient is on Plavix 75 mg Qualifiers: Encounter type: initial encounter Qualified Code(s): T84.029A - Dislocation of unspecified internal joint prosthesis, initial encounter; Z96.649 - Presence of unspecified artificial hip joint (2) Postoperative anemia due to acute blood loss: She has symptomatic anemia Transfusion 2 unit packed red blood cells Colonoscopy in 2020 no acute findings ? No history of EGD hemmocult positive for blood concern for gi bleed, General surgery consulted ? For EGD and colonoscopy, within normal limits ? Monitor hemoglobin monitor hemodynamics Discontinue Pletal Discontinue NSAIDs Secondary to tachycardia baseline EKG was performed see results above. Placed on telemetry. ? Monitor hemoglobin (3) Postoperative hypotension: -Resolved ? Component related to anesthetic ? Component related to postoperative anemia -slow GI bleed ? Holding metoprolol, although she received metoprolol last night -Workup as below ? Metoprolol hold (4) HTN (hypertension): Qualifiers: Hypertension type: primary hypertension Qualified Code(s): I10 - Essential (primary) hypertension (5) CAD (coronary artery disease): Qualifiers: Hypothyroidism type: unspecified Coronary Disease-Associated Artery/Lesion type: [place] artery [place] vs. transplanted heart: [place] heart Associated angina: without angina Qualified Code(s): I25.10 - Atherosclerotic heart disease of [place] coronary artery without angina pectoris (6) Peripheral arterial disease: (7) COPD (chronic obstructive pulmonary disease): Qualifiers: COPD type: unspecified COPD Qualified Code(s): J44.9 - Chronic obstructive pulmonary disease, unspecified (8) Orthostatic hypotension: (9) GI bleed: Plan Plan for today hemoglobin 8.7, stable, orthostatic hypotension resolved, continue to monitor PT OT, working on placement to snf facility Attestations Medical Necessity Statement*: Patient requires hospitalization after for hip dislocation status post revision with postoperative anemia postoperative hypertension, Diagnoses Dislocation of hip joint prosthesis, initial encounter T84.029A; Z96.649 Encounter type: initial encounter Postoperative anemia due to acute blood loss D62 Postoperative hypotension I95.81 Primary hypertension I10 Hypertension type: primary hypertension Coronary artery disease involving [place] coronary artery of [place] heart without angina pectoris I25.10 Hypothyroidism type: unspecified Coronary Disease-Associated Artery/Lesion type: [place] artery [place] vs. transplanted heart: [place] heart Associated angina: without angina Peripheral arterial disease I73.9 Chronic obstructive pulmonary disease, unspecified COPD type J44.9 COPD type: unspecified COPD Orthostatic hypotension I95.1 GI bleed K92.2
[2024-01-07] MEDS: oxyCODONE 10 mg ER (12 HR) Tablet 30 MG PO ×2 (09:08→20:28)
[2024-01-07] MEDS: calcium carbonate 500 mg Chew Tablet 1000 MG PO ×2 (09:08→18:12)
[2024-01-07] MEDS: cholecalciferol (vitamin D3) 1,000 unit Tablet 1000 UNIT PO (09:09)
[2024-01-07] MEDS: multivitamin therapeutic Tablet 1 TAB PO (09:10)
[2024-01-07] MEDS: montelukast sodium 10 mg Tablet PO (09:10)
[2024-01-07] MEDS: colchicine 0.6 mg Tablet 0.599999999999999978 MG PO ×2 (09:10→17:43)
[2024-01-07] MEDS: iron polysaccharide complex 150 mg Capsule PO ×2 (09:10→17:43)
[2024-01-07] MEDS: buPROPion SR (12 HR) 100 mg Tablet 150 MG PO ×2 (09:10→17:43)
[2024-01-07] MEDS: gabapentin 300 mg Capsule PO ×3 (09:10→20:27)
[2024-01-07] MEDS: enoxaparin 40 mg/0.4 mL Syringe SUBCUT (09:11)
[2024-01-07] MEDS: aspirin 81 mg EC Tablet PO (09:11)
[2024-01-07] MEDS: chlorhexidine gluconate 0.12% Btl 473 mL 30 ML MUCOUS MEM ×3 (09:11→20:30)
[2024-01-07] MEDS: loratadine 10 mg Tablet PO (09:11)
[2024-01-07] MEDS: sennosides-docusate Tablet 2 TAB PO ×2 (09:11→17:43)
[2024-01-07] MEDS: atorvastatin 40 mg Tablet 20 MG PO (09:11)
[2024-01-07] MEDS: clopidogrel 75 mg Tablet PO (09:11)
[2024-01-07] MEDS: pantoprazole 40 mg SDV IVP (09:21)
--- NOTE | 2024-01-07 13:41 | P.PN_ITS ---
Subjective 2 Subjective: Patient continues to do well. She is working with physical therapy here, but she still requires assistance, especially, since she is using an abduction brace. She will require inpatient rehabilitation to assure protection of her hip prosthesis. Medications: Reviewed: Yes Vitals/I&O/Wt Last Vital Signs Temp 98.0 F 01/07/24 11:56 Pulse 101 H 01/07/24 11:56 Resp 16 01/07/24 11:56 BP 151/78 01/07/24 11:56 Pulse Ox 97 01/07/24 11:56 O2 Del Method Room Air 01/07/24 11:56 O2 Flow Rate 1 01/02/24 08:32 01/06/24 01/07/24 01/07/24 22:59 06:59 14:59 Intake Total 1720 / 2200 1310 / 3510 221.25 / 221.25 Balance 1720 / 2200 1310 / 3510 221.25 / 221.25 Weight last 48 hrs Weight 124 lb 8 oz Weight 107 lb Physical Exam 2 Const: COMMON NORMALS: no acute distress, average body habitus, patient oriented x3 and alert GENERAL APPEARANCE: cooperative and comfortable O RIENTATION/CONSCIOUSNESS: Yes awake HENMT: COMMON NORMALS: normocephalic and atraumatic HEAD & SCALP: n ormocephalic and atraumatic Eye: GENERAL EYE: appearance normal, both eyes and all related structures Chest: COMMONS NORMALS: normal inspection of the chest Resp: COMMON NORMALS: normal respiratory effort EFFORT & INSPECTION: Yes able to speak in complete sentences and Yes symmetric chest movement Extremity: LEFT LOWER EXTREMITY: Yes hip joint (Dressing is dry and intact) Left hip: Yes inspection (Patient is wearing her abduction brace with skin checks), Yes ROM (Not evaluated.) and Yes neurovascular exam (Intact distally with no evidence of DVT) Neuro: COMMON NORMALS: patient oriented x3 SENSORIUM/ORIENTATION: Yes alert Psych: COMMON NORMALS: mental status grossly normal APPEARANCE: Yes grossly normal ATTITUDE: Yes calm and Yes engaged ATTENTION/CONCENTRATION: Yes attention grossly intact Skin: COMMON NORMALS: no rashes or lesions noted GENERAL SKIN EXAM: no rashes or lesions noted Urinary Catheter Management: [place]: Cath Placed During This Visit: yes, but has since been removed by the nurse Reason for Continuing Indwelling Catheter: Decision to DC Catheter Urinary Catheter Date of Insertion: 01/01/24 Urinary Catheter Time of Insertion: 18:40 Date Urinary Catheter Removed: 01/02/24 Time Urinary Catheter Discontinued: 06:51 Data 01/06/24 05:08 01/06/24 05:08 Micro: Microbiology 01/01/24 19:00 Gram Stain - Final Hip - #1 Anaerobic Culture - Preliminary Wound Culture - Final 01/01/24 19:00 Gram Stain - Final Hip - #2 Anaerobic Culture - Preliminary Wound Culture - Final A&P Assessment and plan (1) History of revision of total replacement of left hip joint: The patient continues rehabilitation from her revision hip arthroplasty. She is being followed by medicine for multiple medical issues. She has had postoperative anemia and being treated for this as well. She underwent colonoscopy. There has been no identification of reason for her postoperative anemia. She is not able to work with physical therapy, but she still requires assistance. She will be wearing an abduction brace for approximately 6 weeks, but this allows her to weight-bear as tolerated. (2) Dislocation of hip joint prosthesis: Qualifiers: Encounter type: initial encounter Qualified Code(s): T84.029A - Dislocation of unspecified internal joint prosthesis, initial encounter; Z96.649 - Presence of unspecified artificial hip joint (3) History of left hip hemiarthroplasty: Attestations 2 Medical Necessity Statement*: Ongoing care and awaiting placement for inpatient rehabilitation following revision hip surgery Coding Level of Care Code Acute Code for Chg Fwd Diagnoses History of revision of total replacement of left hip joint Z96.642 Dislocation of hip joint prosthesis, initial encounter T84.029A; Z96.649 Encounter type: initial encounter History of left hip hemiarthroplasty Z96.642
--- NOTE | 2024-01-07 14:20 | P.PN_ITS ---
Subjective 2 Subjective: Patient was seen this morning, blood pressures have improved remains afebrile no bloody or black stools reported no lightheadedness, dizziness Vitals/I&O/Wt Last Vital Signs Temp 98.0 F 01/07/24 11:56 Pulse 101 H 01/07/24 11:56 Resp 16 01/07/24 11:56 BP 151/78 01/07/24 11:56 Pulse Ox 97 01/07/24 11:56 O2 Del Method Room Air 01/07/24 11:56 O2 Flow Rate 1 01/02/24 08:32 01/06/24 01/07/24 01/07/24 22:59 06:59 14:59 Intake Total 1720 / 2200 1310 / 3510 221.25 / 221.25 Balance 1720 / 2200 1310 / 3510 221.25 / 221.25 Weight last 48 hrs Weight 56.472 kg Weight 48.534 kg Physical Exam 2 Const: COMMON NORMALS: no acute distress and patient oriented x3 Resp: COMMON NORMALS: normal respiratory effort, No retractions, No use of accessory muscles and clear to auscultation bilaterally AUSCULTATION: clear to auscultation bilaterally Cardio: COMMON NORMALS: regular rate, regular rhythm, S1 normal heart sound present and S2 normal heart sound present RATE: regular rate RHYTHM: r egular rhythm HEART SOUNDS: S1 normal heart sound present and S2 normal heart sound present GI: COMMON NORMALS: Normal to inspection, nondistended, normoactive bowel sounds present and non-tender Extremity: COMMON NORMALS: no pedal edema Neuro: COMMON NORMALS: patient oriented x3 Psych: COMMON NORMALS: mental status grossly normal Urinary Catheter Management: [place]: Cath Placed During This Visit: yes, but has since been removed by the nurse Reason for Continuing Indwelling Catheter: Decision to DC Catheter Urinary Catheter Date of Insertion: 01/01/24 Urinary Catheter Time of Insertion: 18:40 Date Urinary Catheter Removed: 01/02/24 Time Urinary Catheter Discontinued: 06:51 Data 01/06/24 05:08 01/06/24 05:08 Micro: Microbiology 01/01/24 19:00 Gram Stain - Final Hip - #1 Anaerobic Culture - Preliminary Wound Culture - Final 01/01/24 19:00 Gram Stain - Final Hip - #2 Anaerobic Culture - Preliminary Wound Culture - Final A&P Assessment and plan (1) Dislocation of hip joint prosthesis: Patient is postoperative status post revision for hip dislocation ? Decrease aspirin to 81 mg for DVT prophylaxis, ?patient is on Plavix 75 mg Qualifiers: Encounter type: initial encounter Qualified Code(s): T84.029A - Dislocation of unspecified internal joint prosthesis, initial encounter; Z96.649 - Presence of unspecified artificial hip joint (2) Postoperative anemia due to acute blood loss: She has symptomatic anemia Transfusion 2 unit packed red blood cells Colonoscopy in 2020 no acute findings ? No history of EGD hemmocult positive for blood concern for gi bleed, General surgery consulted ? For EGD and colonoscopy, within normal limits ? Monitor hemoglobin monitor hemodynamics Discontinue Pletal Discontinue NSAIDs Secondary to tachycardia baseline EKG was performed see results above. Placed on telemetry. ? Monitor hemoglobin (3) Postoperative hypotension: -Resolved ? Component related to anesthetic ? Component related to postoperative anemia -slow GI bleed ? Holding metoprolol, although she received metoprolol last night -Workup as below ? Metoprolol hold (4) HTN (hypertension): Qualifiers: Hypertension type: primary hypertension Qualified Code(s): I10 - Essential (primary) hypertension (5) CAD (coronary artery disease): Qualifiers: Hypothyroidism type: unspecified Coronary Disease-Associated Artery/Lesion type: [place] artery [place] vs. transplanted heart: [place] heart Associated angina: without angina Qualified Code(s): I25.10 - Atherosclerotic heart disease of [place] coronary artery without angina pectoris (6) Peripheral arterial disease: (7) COPD (chronic obstructive pulmonary disease): Qualifiers: COPD type: unspecified COPD Qualified Code(s): J44.9 - Chronic obstructive pulmonary disease, unspecified (8) Orthostatic hypotension: (9) GI bleed: Plan Plan for today heart rate is elevated start metoprolol Attestations 2 Medical Necessity Statement*: Patient requires hospitalization for orthostatic hypotension GI bleed, postoperative anemia postoperative hypertension with recent history of his surgery, Diagnoses Dislocation of hip joint prosthesis, initial encounter T84.029A; Z96.649 Encounter type: initial encounter Postoperative anemia due to acute blood loss D62 Postoperative hypotension I95.81 Primary hypertension I10 Hypertension type: primary hypertension Coronary artery disease involving [place] coronary artery of [place] heart without angina pectoris I25.10 Hypothyroidism type: unspecified Coronary Disease-Associated Artery/Lesion type: [place] artery [place] vs. transplanted heart: [place] heart Associated angina: without angina Peripheral arterial disease I73.9 Chronic obstructive pulmonary disease, unspecified COPD type J44.9 COPD type: unspecified COPD Orthostatic hypotension I95.1 GI bleed K92.2
[2024-01-07] MEDS: metoprolol tartrate 25 mg Tablet 12.5 MG PO (14:59)
[2024-01-07] MEDS: ALPRAZolam 0.5 mg Tablet 2 MG PO (20:26)
[2024-01-07] MEDS: mirtazapine 15 mg Tablet 7.5 MG PO (20:28)
[2024-01-08] VITALS (7 sets, daily range): BP systolic 135–147; BP diastolic 72–81; PULSE 86–92; RESP 16–20; TEMP 36.5–36.8; O2SAT 94–100
[2024-01-08] MEDS: metoprolol tartrate 25 mg Tablet 12.5 MG PO ×2 (02:29→15:50)
[2024-01-08] MEDS: oxyCODONE 5 mg IR Tab/Cap 15 MG PO ×4 (03:52→17:24)
[2024-01-08] MEDS: acetaminophen 500 mg Tablet 1000 MG PO ×3 (06:26→22:50)
[2024-01-08] MEDS: levothyroxine 100 mcg Tablet PO (06:27)
[2024-01-08] MEDS: enoxaparin 40 mg/0.4 mL Syringe SUBCUT (08:18)
[2024-01-08] MEDS: oxyCODONE 10 mg ER (12 HR) Tablet 30 MG PO ×2 (08:18→19:40)
[2024-01-08] MEDS: colchicine 0.6 mg Tablet 0.599999999999999978 MG PO ×2 (08:18→17:21)
[2024-01-08] MEDS: pantoprazole 40 mg SDV IVP (08:18)
[2024-01-08] MEDS: tizanidine 4 mg Tablet PO ×3 (08:18→19:58)
[2024-01-08] MEDS: loratadine 10 mg Tablet PO (08:19)
[2024-01-08] MEDS: multivitamin therapeutic Tablet 1 TAB PO (08:19)
[2024-01-08] MEDS: aspirin 81 mg EC Tablet PO (08:19)
[2024-01-08] MEDS: sennosides-docusate Tablet 2 TAB PO ×2 (08:19→17:22)
[2024-01-08] MEDS: montelukast sodium 10 mg Tablet PO (08:19)
[2024-01-08] MEDS: calcium carbonate 500 mg Chew Tablet 1000 MG PO (08:19)
[2024-01-08] MEDS: clopidogrel 75 mg Tablet PO (08:19)
[2024-01-08] MEDS: buPROPion SR (12 HR) 100 mg Tablet 150 MG PO ×2 (08:19→17:22)
[2024-01-08] MEDS: gabapentin 300 mg Capsule PO ×3 (08:19→19:58)
[2024-01-08] MEDS: atorvastatin 40 mg Tablet 20 MG PO (08:19)
[2024-01-08] MEDS: iron polysaccharide complex 150 mg Capsule PO ×2 (08:19→17:22)
[2024-01-08 09:03] LABS: SARS Covid-2 Antigen negative (Negative)
--- NOTE | 2024-01-08 14:21 | P.PN_ITS ---
Subjective 2 Subjective: Patient continues to do well. She is working with physical therapy here, but she still requires assistance, especially, since she is using an abduction brace. She will require inpatient rehabilitation to assure protection of her hip prosthesis. Medications: Reviewed: Yes Vitals/I&O/Wt Last Vital Signs Temp 98 F 01/08/24 08:00 Pulse 86 01/08/24 08:19 Resp 16 01/08/24 08:29 BP 147/81 01/08/24 08:00 Pulse Ox 100 01/08/24 08:19 O2 Del Method Room Air 01/08/24 08:19 O2 Flow Rate 1 01/02/24 08:32 01/07/24 01/08/24 01/08/24 22:59 06:59 14:59 Intake Total 480 / 701.25 240 / 941.25 480 / 480 Balance 480 / 701.25 240 / 941.25 480 / 480 Weight last 48 hrs Weight 123 lb 4 oz Weight 124 lb 8 oz Physical Exam 2 Const: COMMON NORMALS: no acute distress, average body habitus, patient oriented x3 and alert GENERAL APPEARANCE: cooperative and comfortable O RIENTATION/CONSCIOUSNESS: Yes awake HENMT: COMMON NORMALS: normocephalic and atraumatic HEAD & SCALP: n ormocephalic and atraumatic Eye: GENERAL EYE: appearance normal, both eyes and all related structures Chest: COMMONS NORMALS: normal inspection of the chest Resp: COMMON NORMALS: normal respiratory effort EFFORT & INSPECTION: Yes able to speak in complete sentences and Yes symmetric chest movement Extremity: LEFT LOWER EXTREMITY: Yes hip joint (Abduction brace is in place.) Left hip: Yes inspection (Thigh is soft and nontender), Yes palpation (Minimal to no discomfort) and Yes neurovascular exam (No evidence of DVT) Neuro: COMMON NORMALS: patient oriented x3 SENSORIUM/ORIENTATION: Yes alert Psych: COMMON NORMALS: mental status grossly normal APPEARANCE: Yes grossly normal ATTITUDE: Yes calm and Yes engaged ATTENTION/CONCENTRATION: Yes attention grossly intact Skin: COMMON NORMALS: no rashes or lesions noted GENERAL SKIN EXAM: no rashes or lesions noted Urinary Catheter Management: [place]: Cath Placed During This Visit: yes, but has since been removed by the nurse Reason for Continuing Indwelling Catheter: Decision to DC Catheter Urinary Catheter Date of Insertion: 01/01/24 Urinary Catheter Time of Insertion: 18:40 Date Urinary Catheter Removed: 01/02/24 Time Urinary Catheter Discontinued: 06:51 Data 01/06/24 05:08 01/06/24 05:08 Micro: Microbiology 01/01/24 19:00 Gram Stain - Final Hip - #2 Anaerobic Culture - Preliminary Wound Culture - Final 01/01/24 19:00 Gram Stain - Final Hip - #1 Anaerobic Culture - Preliminary Wound Culture - Final A&P Assessment and plan (1) History of revision of total replacement of left hip joint: The patient continues rehabilitation from her revision hip arthroplasty. She is being followed by medicine for multiple medical issues. She has had postoperative anemia and being treated for this as well. She underwent colonoscopy. There has been no identification of reason for her postoperative anemia. She is not able to work with physical therapy, but she still requires assistance. She will be wearing an abduction brace for approximately 6 weeks, but this allows her to weight-bear as tolerated. She is advised that she can stay in out of the brace while in bed, but she should be on it for ambulating. (2) Dislocation of hip joint prosthesis: Qualifiers: Encounter type: initial encounter Qualified Code(s): T84.029A - Dislocation of unspecified internal joint prosthesis, initial encounter; Z96.649 - Presence of unspecified artificial hip joint (3) History of left hip hemiarthroplasty: Attestations 2 Medical Necessity Statement*: Per medical service. Awaiting placement Coding Level of Care Code Acute Code for Chg Fwd Diagnoses History of revision of total replacement of left hip joint Z96.642 Dislocation of hip joint prosthesis, initial encounter T84.029A; Z96.649 Encounter type: initial encounter History of left hip hemiarthroplasty Z96.642
--- NOTE | 2024-01-08 14:45 | P.PN_ITS ---
Subjective 2 Subjective: Patient was seen this morning, she is frustrated about being here in the hospital, awaiting placement to a detention facility, denies any fevers, no cough, no bloody or black stools Vitals/I&O/Wt Last Vital Signs Temp 98 F 01/08/24 08:00 Pulse 86 01/08/24 08:19 Resp 16 01/08/24 08:29 BP 147/81 01/08/24 08:00 Pulse Ox 100 01/08/24 08:19 O2 Del Method Room Air 01/08/24 08:19 O2 Flow Rate 1 01/02/24 08:32 01/07/24 01/08/24 01/08/24 22:59 06:59 14:59 Intake Total 480 / 701.25 240 / 941.25 480 / 480 Balance 480 / 701.25 240 / 941.25 480 / 480 Weight last 48 hrs Weight 55.905 kg Weight 56.472 kg Physical Exam 2 Const: COMMON NORMALS: no acute distress and patient oriented x3 Resp: COMMON NORMALS: normal respiratory effort, No retractions, No use of accessory muscles and clear to auscultation bilaterally AUSCULTATION: clear to auscultation bilaterally Cardio: COMMON NORMALS: regular rate, regular rhythm, S1 normal heart sound present and S2 normal heart sound present RATE: regular rate RHYTHM: r egular rhythm HEART SOUNDS: S1 normal heart sound present and S2 normal heart sound present GI: COMMON NORMALS: Normal to inspection, nondistended, normoactive bowel sounds present and non-tender Extremity: COMMON NORMALS: no pedal edema Neuro: COMMON NORMALS: patient oriented x3 Psych: COMMON NORMALS: mental status grossly normal Urinary Catheter Management: Bullard: Cath Placed During This Visit: yes, but has since been removed by the nurse Reason for Continuing Indwelling Catheter: Decision to DC Catheter Urinary Catheter Date of Insertion: 01/01/24 Urinary Catheter Time of Insertion: 18:40 Date Urinary Catheter Removed: 01/02/24 Time Urinary Catheter Discontinued: 06:51 Data 01/06/24 05:08 01/06/24 05:08 Micro: Microbiology 01/01/24 19:00 Gram Stain - Final Hip - #2 Anaerobic Culture - Preliminary Wound Culture - Final 01/01/24 19:00 Gram Stain - Final Hip - #1 Anaerobic Culture - Preliminary Wound Culture - Final A&P Assessment and plan (1) Dislocation of hip joint prosthesis: Patient is postoperative status post revision for hip dislocation ? Decrease aspirin to 81 mg for DVT prophylaxis, ?patient is on Plavix 75 mg Qualifiers: Encounter type: initial encounter Qualified Code(s): T84.029A - Dislocation of unspecified internal joint prosthesis, initial encounter; Z96.649 - Presence of unspecified artificial hip joint (2) Postoperative anemia due to acute blood loss: She has symptomatic anemia Transfusion 2 unit packed red blood cells Colonoscopy in 2020 no acute findings ? No history of EGD hemmocult positive for blood concern for gi bleed, General surgery consulted ? For EGD and colonoscopy, within normal limits ? Monitor hemoglobin monitor hemodynamics Discontinue Pletal Discontinue NSAIDs Secondary to tachycardia baseline EKG was performed see results above. Placed on telemetry. ? Monitor hemoglobin (3) Postoperative hypotension: -Resolved ? Component related to anesthetic ? Component related to postoperative anemia -slow GI bleed ? Holding metoprolol, although she received metoprolol last night -Workup as below ? Metoprolol hold (4) HTN (hypertension): Qualifiers: Hypertension type: primary hypertension Qualified Code(s): I10 - Essential (primary) hypertension (5) CAD (coronary artery disease): Qualifiers: Hypothyroidism type: unspecified Coronary Disease-Associated Artery/Lesion type: [place] artery [place] vs. transplanted heart: [place] heart Associated angina: without angina Qualified Code(s): I25.10 - Atherosclerotic heart disease of [place] coronary artery without angina pectoris (6) Peripheral arterial disease: (7) COPD (chronic obstructive pulmonary disease): Qualifiers: COPD type: unspecified COPD Qualified Code(s): J44.9 - Chronic obstructive pulmonary disease, unspecified (8) Orthostatic hypotension: (9) GI bleed: Plan Monitor Attestations 2 Medical Necessity Statement*: Patient requires hospitalization Postoperative anemia, hypertension Diagnoses Dislocation of hip joint prosthesis, initial encounter T84.029A; Z96.649 Encounter type: initial encounter Postoperative anemia due to acute blood loss D62 Postoperative hypotension I95.81 Primary hypertension I10 Hypertension type: primary hypertension Coronary artery disease involving [place] coronary artery of eastern sh[place] heart without angina pectoris I25.10 Hypothyroidism type: unspecified Coronary Disease-Associated Artery/Lesion type: [place] artery [place] vs. transplanted heart: [place] sh[place] heart Associated angina: without angina Peripheral arterial disease I73.9 Chronic obstructive pulmonary disease, unspecified COPD type J44.9 COPD type: unspecified COPD Orthostatic hypotension I95.1 GI bleed K92.2
[2024-01-08] MEDS: ALPRAZolam 0.5 mg Tablet 2 MG PO (19:45)
[2024-01-08] MEDS: mirtazapine 15 mg Tablet 7.5 MG PO (19:59)
[2024-01-08] MEDS: chlorhexidine gluconate 0.12% Btl 473 mL 30 ML MUCOUS MEM (20:00)
[2024-01-09] VITALS (7 sets, daily range): BP systolic 116–135; BP diastolic 70–86; PULSE 76–98; RESP 15–18; TEMP 36.6–36.7; O2SAT 97–99
[2024-01-09] MEDS: oxyCODONE 5 mg IR Tab/Cap 15 MG PO ×2 (03:13→14:42)
[2024-01-09] MEDS: metoprolol tartrate 25 mg Tablet 12.5 MG PO ×2 (03:14→14:37)
[2024-01-09] MEDS: levothyroxine 100 mcg Tablet PO (06:02)
[2024-01-09] MEDS: acetaminophen 500 mg Tablet 1000 MG PO ×2 (06:02→14:37)
[2024-01-09] MEDS: budesonide 0.5 mg/2 mL Neb INHALATION (08:03)
[2024-01-09] MEDS: enoxaparin 40 mg/0.4 mL Syringe SUBCUT (08:48)
[2024-01-09] MEDS: buPROPion SR (12 HR) 100 mg Tablet 150 MG PO (08:48)
[2024-01-09] MEDS: cholecalciferol (vitamin D3) 1,000 unit Tablet 1000 UNIT PO (08:48)
[2024-01-09] MEDS: tizanidine 4 mg Tablet PO ×2 (08:49→14:37)
[2024-01-09] MEDS: loratadine 10 mg Tablet PO (08:49)
[2024-01-09] MEDS: atorvastatin 40 mg Tablet 20 MG PO (08:49)
[2024-01-09] MEDS: calcium carbonate 500 mg Chew Tablet 1000 MG PO (08:49)
[2024-01-09] MEDS: gabapentin 300 mg Capsule PO ×2 (08:49→14:37)
[2024-01-09] MEDS: multivitamin therapeutic Tablet 1 TAB PO (08:49)
[2024-01-09] MEDS: montelukast sodium 10 mg Tablet PO (08:49)
[2024-01-09] MEDS: sennosides-docusate Tablet 2 TAB PO (08:50)
[2024-01-09] MEDS: iron polysaccharide complex 150 mg Capsule PO (08:50)
[2024-01-09] MEDS: chlorhexidine gluconate 0.12% Btl 473 mL 30 ML MUCOUS MEM ×2 (08:50→14:30)
[2024-01-09] MEDS: oxyCODONE 10 mg ER (12 HR) Tablet 30 MG PO (08:50)
[2024-01-09] MEDS: clopidogrel 75 mg Tablet PO (08:50)
[2024-01-09] MEDS: aspirin 81 mg EC Tablet PO (08:50)
[2024-01-09] MEDS: colchicine 0.6 mg Tablet 0.599999999999999978 MG PO (08:51)
--- NOTE | 2024-01-09 09:23 | PC.SOCIAL ---
IMM Updated Updated pt on IMM. no questions voiced. Provided pt a copy. Initialed, dated, & timed copy in chart.
[2024-01-09] MEDS: pantoprazole 40 mg SDV IVP (09:41)
[2024-01-09 10:08] LABS: Basophils # 0.1 10^3/uL (0.0-0.1); Basophils % 0.6 %; Eosinophils # 0.2 10^3/uL (0.0-0.8); Hematocrit 35.3 % (36-47); Lymphocytes # 3.1 10^3/uL (0.8-4.8); Lymphocytes % 32.6 %; Mean Corpuscular Hemoglobin 29.3 pg (27-33); Mean Corpuscular Volume 91.5 fl (85-98); Mean Platelet Volume 8.7 fL (7.4-10.4); Monocytes # 0.8 10^3/uL (0.2-0.9); Monocytes % 8.8 %; Neutrophils # 5.18 10^3/uL (1.8-7.7); Neutrophils % 55.4 %; Nucleated Red Blood Cells % 0 %; Platelet Count 412 10^3/cmm (157-399); Red Blood Count 3.86 10^6/uL (3.85-5.65); Red Cell Distribution Width 15.6 % (12.1-15.1); White Blood Count 9.38 10^3/uL (3.29-11.43)
--- NOTE | 2024-01-09 11:01 | PM.DCS ---
Discharge Providers Date of Admission: 01/01/24 18:42 Date of Discharge: January 09, 2024 Attending Provider at Admission: Nayana Cerna MD Attending Provider at Discharge: Gonzales Galindo MD Primary Care Provider: Rose Beaver DO Diagnoses at Discharge Discharge Diagnosis (1) Dislocation of hip joint prosthesis: Status: Acute Qualifiers: Encounter type: initial encounter Qualified Code(s): T84.029A - Dislocation of unspecified internal joint prosthesis, initial encounter; Z96.649 - Presence of unspecified artificial hip joint (2) Postoperative anemia due to acute blood loss: Status: Acute (3) Postoperative hypotension: Status: Acute (4) HTN (hypertension): Status: Acute Qualifiers: Hypertension type: primary hypertension Qualified Code(s): I10 - Essential (primary) hypertension (5) CAD (coronary artery disease): Status: Acute Qualifiers: Associated angina: without angina Coronary Disease-Associated Artery/Lesion type: ely shoshone artery Hypothyroidism type: unspecified [place] vs. transplanted heart: ely shoshone heart Qualified Code(s): I25.10 - Atherosclerotic heart disease of ely shoshone coronary artery without angina pectoris (6) Peripheral arterial disease: Status: Acute (7) COPD (chronic obstructive pulmonary disease): Status: Acute Qualifiers: COPD type: unspecified COPD Qualified Code(s): J44.9 - Chronic obstructive pulmonary disease, unspecified (8) Orthostatic hypotension: Status: Acute (9) GI bleed: Status: Acute Reason for Visit Reason for Visit: Z96.64, T84.029A, Z96.649 Hospital Course Hospital Course Amanda Hutchinson is a 53 year old female who I been asked to participate in care for medical management. She was admitted December 31, and underwent a left hip revision secondary to instability of the left hip. Left hip total arthroplasty was done without significant complication. Estimated blood loss 200 cc. Since that time she reports some dizziness today. Nurses have related some lower blood pressures, and higher heart rate. She denies any nausea, chest pain or shortness of breath. I reviewed some of her medicines with her and she is convinced her Neurontin should only be 300 mg 3 times daily. Patient was admitted to [facility] for dislocation of hip joint prosthesis, status post surgical revision, tolerated procedure well, discharged on her home aspirin 81 mg with Plavix 75 mg daily Patient's hospitalization was complicated with postoperative anemia, acute blood loss anemia, transfusion of 2 units PRBC, Hemoccult stool positive, underwent EGD and colonoscopy, findings of mild gastritis, overall remained stable, discharged home on her home medications, discharged on Protonix, avoid NSAIDs Postoperative hypotension is secondary to anesthetic, postoperative anemia, resolved Attempts were made to place patient to [facility] facility however authorization from insurance company has taken over 5 days so far is still pending, patient was frustrated about waiting here in the hospital, wanted to go home, discharged home with [facility] Physical Exam Const: COMMON NORMALS: no acute distress and patient oriented x3 Resp: COMMON NORMALS: normal respiratory effort, No retractions, No use of accessory muscles and clear to auscultation bilaterally AUSCULTATION: clear to auscultation bilaterally Cardio: COMMON NORMALS: regular rate, regular rhythm, S1 normal heart sound present and S2 normal heart sound present RATE: regular rate RHYTHM: regular rhythm HEART SOUNDS: S1 normal heart sound present and S2 normal heart sound present GI: COMMON NORMALS: Normal to inspection, nondistended, normoactive bowel sounds present and non-tender Extremity: COMMON NORMALS: no pedal edema Neuro: COMMON NORMALS: patient oriented x3 Psych: COMMON NORMALS: mental status grossly normal Urinary Catheter Management: Bullard: Cath Placed During This Visit: yes, but has since been removed by the nurse Reason for Continuing Indwelling Catheter: Decision to DC Catheter Urinary Catheter Date of Insertion: 01/01/24 Urinary Catheter Time of Insertion: 18:40 Date Urinary Catheter Removed: 01/02/24 Time Urinary Catheter Discontinued: 06:51 Discharge Data Studies Completed and Pending Completed Studies During Hospitalization Category Date Time Status XR pelvis 1-2V* [id number] Routine Exams 01/01/24 22:41 Completed Pathology: Surgical [PTH] Routine Pth 01/05/24 08:13 Completed Pending at discharge Category Date Time Status Anaerobic Culture Routine Lab 01/01/24 19:00 Results Anaerobic Culture Routine Lab 01/01/24 19:00 Results Wound Culture and Gram Stain Routine Lab 01/01/24 19:00 Results Wound Culture and Gram Stain Routine Lab 01/01/24 19:00 Results Laboratory Results WBC 9.38 10^3/uL (3.29-11.43) 01/09/24 10:01 RBC 3.86 10^6/uL (3.85-5.65) 01/09/24 10:01 Hgb 11.30 g/dL (11.27-16.99) 01/09/24 10:01 Hct 35.3 % (36-47) L 01/09/24 10:01 MCV 91.5 fl (85-98) 01/09/24 10:01 MCH 29.3 pg (27-33) 01/09/24 10:01 MCHC 32.0 g/dL (30-55) 01/09/24 10:01 RDW 15.6 % (12.1-15.1) H 01/09/24 10:01 Plt Count 412 10^3/cmm (157-399) H 01/09/24 10:01 MPV 8.7 fL (7.4-10.4) 01/09/24 10:01 Neut % (Auto) 55.4 % 01/09/24 10:01 Lymph % (Auto) 32.6 % 01/09/24 10:01 Reeves % (Auto) 8.8 % 01/09/24 10:01 Eos % (Auto) 2.0 % 01/09/24 10:01 Baso % (Auto) 0.6 % 01/09/24 10:01 Neut # (Auto) 5.18 10^3/uL (1.8-7.7) 01/09/24 10:01 Lymph # (Auto) 3.1 10^3/uL (0.8-4.8) 01/09/24 10:01 Reeves # (Auto) 0.8 10^3/uL (0.2-0.9) 01/09/24 10:01 Eos # (Auto) 0.2 10^3/uL (0.0-0.8) 01/09/24 10:01 Baso # (Auto) 0.1 10^3/uL (0.0-0.1) 01/09/24 10:01 Nucleated RBC % (auto) 0 % 01/09/24 10:01 Nucleated RBCs # 0.0 /100WBC 01/09/24 10:01 Sodium 142 mmol/L (136-145) 01/06/24 05:08 Potassium 3.8 mmol/L (3.5-5.1) 01/06/24 05:08 Chloride 109 mmol/L (98-107) H 01/06/24 05:08 Carbon Dioxide 23 mmol/L (22-29) 01/06/24 05:08 Anion Gap 13.8 (5-19) 01/06/24 05:08 BUN 5 mg/dL (6-20) L 01/06/24 05:08 Creatinine 0.5 mg/dL (0.5-0.9) 01/06/24 05:08 GFR Calculation 129.1 mL/min (90-130) 01/06/24 05:08 Glucose 119 mg/dL (65-115) H 01/06/24 05:08 Calculated Osmolality 292 mOsm/kg (285-295) 01/06/24 05:08 Lactate 1.4 mmol/L (0.5-2.2) 01/03/24 09:24 Calcium 9.0 mg/dL (8.5-10.5) 01/06/24 05:08 Iron 188 ug/dL (37-145) H 01/03/24 03:03 TIBC 188 mcg/dl 01/03/24 03:03 % Saturation 100.0 % (20-50) H 01/03/24 03:03 Unsat Iron Binding 0 ug/dL (112-347) L 01/03/24 03:03 Ferritin 295 ng/mL (15-150) H 01/03/24 03:03 Troponin T Baseline 28 ng/L (0-10) H 01/03/24 09:24 Troponin T 120 Minute 24.11 ng/L (0-10) H 01/03/24 12:00 Delta Troponin T -3.89 ABS# (0-10) L 01/03/24 12:00 Troponin T Hi Sens 6Hr 23.37 ng/L (0-10) H 01/03/24 15:45 Troponin T Hi Sens 6Hr Delta -4.63 ng/L (0-12) L 01/03/24 15:45 Vitamin B12 791 pg/mL (232-1245) 01/03/24 03:03 Folate 14.8 ng/mL (4.8-37.3) 01/03/24 03:03 Random Cortisol 6.16 ug/dL (2.47-19.5) 01/03/24 15:45 Urine Color Yellow (Yellow) 01/03/24 20:30 Urine Appearance Clear (CLEAR) 01/03/24 20:30 Urine pH 7 (5-7) 01/03/24 20:30 Ur Specific [place] 1.000 (1.005-1.030) L 01/03/24 20:30 Urine Protein Neg (Negative) 01/03/24 20:30 Urine Glucose (UA) Norm (Normal) 01/03/24 20:30 Urine Ketones Negative (Negative) 01/03/24 20:30 Urine Blood Neg (Negative) 01/03/24 20:30 Urine Nitrate Negative (Negative) 01/03/24 20:30 Urine Bilirubin Neg (Negative) 01/03/24 20:30 Urine Urobilinogen Neg mg/dL (Negative) 01/03/24 20:30 Ur Leukocyte Esterase Negative (Negative) 01/03/24 20:30 SARS-CoV-2 Ag (Rapid) negative (Negative) 01/08/24 08:34 Blood Type A Positive 01/02/24 14:05 Rho(D) Type Rh positive 01/02/24 14:05 Antibody Screen Negative 01/02/24 14:05 Crossmatch See Detail 01/02/24 14:05 Vitals Last Vital Signs Temp 98.1 F 01/09/24 08:00 Pulse 87 01/09/24 08:00 Resp 16 01/09/24 08:50 BP 130/86 01/09/24 08:00 Pulse Ox 97 01/09/24 08:00 O2 Del Method Room Air 01/09/24 08:00 O2 Flow Rate 1 01/02/24 08:32 Discharge Plan Discharge Patient Disposition: Xfer SNF Condition: Stable Prescriptions: New gabapentin 300 mg Capsule 300 mg PO TID 30 Days Qty: 90 0RF aspirin 81 mg Tablet,Delayed Release (Dr/Ec) 81 mg PO DAILY 30 Days Qty: 30 0RF metoprolol tartrate 25 mg Tablet 12.5 mg PO Q12H 30 Days Qty: 30 0RF bupropion HCl 100 mg Tablet Sustained-Release 12 Hr 150 mg PO BID 30 Days Qty: 90 0RF sennosides-docusate sodium [Stool Softener-Laxative] 8.6-50 mg Tablet 2 tab PO BID 30 Days Qty: 120 0RF Continued omeprazole magnesium 20 mg capsule,delayed release(DR/EC) 20 mg PO BID montelukast 10 mg tablet 10 mg PO DAILY clopidogrel 75 mg tablet 75 mg PO DAILY cetirizine 10 mg capsule 10 mg PO DAILY promethazine 25 mg tablet 25 mg PO TID PRN (Reason: Nausea And Vomiting) levothyroxine 112 mcg capsule 100 mcg PO DAILY alprazolam 2 mg tablet 2 mg PO DAILY PRN (Reason: Anxiety) mirtazapine 15 mg tablet 15 mg PO BEDTIME colchicine [Colcrys] 0.6 mg tablet 0.6 mg PO BID Xtampza ER 27 mg cap,sprinkl,ER12hr(DONT CRUSH) 27 mg PO BID Rx Instructions: must administer with a meal/food albuterol sulfate 90 mcg/actuation aerosol powdr breath activated 2 inh inhalation Q4H PRN (Reason: Shortness Of Breath) nitroglycerin 0.4 mg tablet, sublingual 0.4 mg sublingual Q5M PRN (Reason: chest pain) Qty: 25 3RF Rx Instructions: do not exceed 3 doses per episode tizanidine 4 mg tablet 4 mg PO TID PRN (Reason: MUSCLE SPASMS) ipratropium-albuterol 0.5 mg-3 mg(2.5 mg base)/3 mL solution for nebulization 3 ml inhalation Q4H PRN (Reason: wheezing) Qty: 90 3RF (DME) acapella device See Rx Instructions .Route .MEDSUPPLY Qty: 1 0RF Rx Instructions: As directed multivitamin Tablet 1 tab PO DAILY aspirin [Adult Low Dose Aspirin] 81 mg tablet,delayed release (DR/EC) 81 mg PO DAILY cholecalciferol (vitamin D3) 25 mcg (1,000 unit) capsule 25 mcg PO DAILY (DME) Hinged Knee Brace See Rx Instructions .Route .MEDSUPPLY Qty: 1 0RF Rx Instructions: As directed Trelegy Ellipta 100-62.5-25 mcg blister with device 1 inh inhalation DAILY Qty: 60 5RF (DME) Bedside Commode See Rx Instructions .Route .MEDSUPPLY Qty: 1 0RF Rx Instructions: As directed cilostazol 100 mg tablet 100 mg PO BID simvastatin 40 mg tablet 40 mg PO DAILY bupropion HCl 150 mg tablet sustained-release 12 hr 150 mg PO BID Mucinex Fast-Max Chest-Congest 100 mg/5 mL Liquid 200 mg PO Q4H PRN (Reason: COUGH AND CONGESTION) Changed oxycodone 15 mg tablet 15 mg PO Q8H PRN (Reason: Pain) 7 Days Qty: 21 0RF naloxone 4 mg/actuation spray,non-aerosol 1 spray intranasal PRN PRN (Reason: overdose) Qty: 2 0RF Discontinued metoprolol tartrate 50 mg tablet 50 mg PO BID gabapentin 300 mg capsule 300 mg PO TID Discharge Orders: Discharge Order (Routine); Ordered 01/09/24 Ordered By: Gonzales Galindo Referrals: [facility] [Outside] Hector Grigsby DO [Physician] - 01/19/24 1:40 pm (To go over EGD biopsies) Nayana Cerna MD [Physician] - 03/01/24 1:30 pm Rose Beaver DO [Primary Care Provider] - Discharge Diet: Advance as tolerated, Usual diet and As Directed Discharge Activity: Limit activity as instructed, Use walker/crutches as instructed and As per PT/OT instructions Activity Restrictions/Additional Instructions: Ice to left hip. Weightbearing as tolerated. Posterior hip precautions. Maintain current dressing until it comes off on its own. If it lifts off and begins to leak, please remove it. Patient may be out of the abduction brace while in bed. Please place it for ambulation. -Please use oxycodone sparingly, for your pain, please do not use with any other narcotics, do not drive or operate machinery or drink while taking medication ? If you do develop any respiratory difficulty on oxycodone please use Narcan Discharge Attestations Time Spent in Discharge Care*: greater than 30 min Quality Metrics Clinical Quality Measures [ No reported AMI, CVA or VTE this stay] Coding Level of Care Code 47121 Total time (in minutes) for Discharge: 45 Diagnoses Dislocation of hip joint prosthesis, initial encounter T84.029A; Z96.649 Encounter type: initial encounter Postoperative anemia due to acute blood loss D62 Postoperative hypotension I95.81 Primary hypertension I10 Hypertension type: primary hypertension Coronary artery disease involving [place] coronary artery of ely shosh[place] heart without angina pectoris I25.10 Associated angina: without angina Coronary Disease-Associated Artery/Lesion type: [place] artery Hypothyroidism type: unspecified [place] vs. transplanted heart: ely sh[place] heart Peripheral arterial disease I73.9 Chronic obstructive pulmonary disease, unspecified COPD type J44.9 COPD type: unspecified COPD Orthostatic hypotension I95.1 GI bleed K92.2
--- NOTE | 2024-01-09 14:29 | PC.NURSE ---
dc pending Dr. Cerna
--- NOTE | 2024-01-09 17:00 | PM.PN ---
Subjective Subjective: Patient was seen in her room, and she is prepared for discharge to home as she has not been approved for transfer to half-way. Medications: Reviewed: Yes Vitals/I&O/Wt Last Vital Signs Temp 98 F 01/09/24 12:00 Pulse 76 01/09/24 12:00 Resp 17 01/09/24 14:42 BP 135/78 01/09/24 12:00 Pulse Ox 97 01/09/24 12:00 O2 Del Method Room Air 01/09/24 08:00 O2 Flow Rate 1 01/02/24 08:32 01/09/24 01/09/24 01/09/24 06:59 14:59 22:59 Intake Total 480 / 480 Balance 480 / 480 Weight last 48 hrs Weight 121 lb 3 oz Weight 123 lb 4 oz Physical Exam Const: COMMON NORMALS: no acute distress, average body habitus, patient oriented x3 and alert GENERAL APPEARANCE: cooperative and comfortable ORIENTATION/CONSCIOUSNESS: Yes awake HENMT: COMMON NORMALS: normocephalic and atraumatic HEAD & SCALP: normocephalic and atraumatic Eye: GENERAL EYE: appearance normal, both eyes and all related structures Chest: COMMONS NORMALS: normal inspection of the chest Resp: COMMON NORMALS: normal respiratory effort EFFORT & INSPECTION: Yes able to speak in complete sentences and Yes symmetric chest movement Extremity: LEFT LOWER EXTREMITY: Yes hip joint (Dressing remains dry and intact) Left hip: Yes ROM (Not evaluated) and Yes neurovascular exam (Intact distally with no evidence of DVT) Neuro: COMMON NORMALS: patient oriented x3 SENSORIUM/ORIENTATION: Yes alert Psych: COMMON NORMALS: mental status grossly normal APPEARANCE: Yes grossly normal ATTITUDE: Yes calm and Yes engaged ATTENTION/CONCENTRATION: Yes attention grossly intact Skin: COMMON NORMALS: no rashes or lesions noted GENERAL SKIN EXAM: no rashes or lesions noted Urinary Catheter Management: Bullard: Cath Placed During This Visit: yes, but has since been removed by the nurse Reason for Continuing Indwelling Catheter: Decision to DC Catheter Urinary Catheter Date of Insertion: 01/01/24 Urinary Catheter Time of Insertion: 18:40 Date Urinary Catheter Removed: 01/02/24 Time Urinary Catheter Discontinued: 06:51 Data 01/09/24 10:01 01/06/24 05:08 Micro: Microbiology 01/01/24 19:00 Gram Stain - Final Hip - #2 Anaerobic Culture - Final Wound Culture - Final 01/01/24 19:00 Gram Stain - Final Hip - #1 Anaerobic Culture - Final Wound Culture - Final A&P Assessment and plan (1) History of revision of total replacement of left hip joint: The patient continues rehabilitation from her revision hip arthroplasty. She is being followed by medicine for multiple medical issues. She has had postoperative anemia and being treated for this as well. She underwent colonoscopy. There has been no identification of reason for her postoperative anemia. She is not able to work with physical therapy, but she still requires assistance. She will be wearing an abduction brace for approximately 6 weeks, but this allows her to weight-bear as tolerated. She is advised that she can stay in out of the brace while in bed, but she should be on it for ambulating. The decision has been made for her discharge to home rather than half-way. (2) Dislocation of hip joint prosthesis: Qualifiers: Encounter type: initial encounter Qualified Code(s): T84.029A - Dislocation of unspecified internal joint prosthesis, initial encounter; Z96.649 - Presence of unspecified artificial hip joint (3) History of left hip hemiarthroplasty: Attestations Medical Necessity Statement*: Ongoing care following revision hip arthroplasty Coding Level of Care Code Acute Code for Chg Fwd Diagnoses History of revision of total replacement of left hip joint Z96.642 Dislocation of hip joint prosthesis, initial encounter T84.029A; Z96.649 Encounter type: initial encounter History of left hip hemiarthroplasty Z96.642
== END 2024-01-09 17:08 | disposition home health service (06) | DRG 466 ==
LOC: MEDSURG 18:42
PROVIDERS: Internal Medicine; Surgery; Admitting Provider Specialist; PCP Family Medicine; Visit Provider Family Medicine
PROC: 0SRB0JA Replacement of Left Hip Joint with Synthetic Substitute, Uncemented, Open Approach (ICD-10-PCS; CPT 27130; principal; 2024-01-01 14:10)
PROC: 0DJ08ZZ Inspection of Upper Intestinal Tract, Via Natural or Artificial Opening Endoscopic (ICD-10-PCS; CPT 43235; principal; 2024-01-05 07:15)
PROC: 0DJD8ZZ Inspection of Lower Intestinal Tract, Via Natural or Artificial Opening Endoscopic (ICD-10-PCS; CPT 45378; 2024-01-05 07:15)
DX: T84.021A Dislocation of internal left hip prosthesis, initial encounter (principal); K29.71 Gastritis, unspecified, with bleeding; M87.9 Osteonecrosis, unspecified; D62 Acute posthemorrhagic anemia; Y79.8 Miscellaneous orthopedic devices associated with adverse incidents, not elsewhere classified; M17.12 Unilateral primary osteoarthritis, left knee; G40.909 Epilepsy, unspecified, not intractable, without status epilepticus; K21.9 Gastro-esophageal reflux disease without esophagitis; E03.9 Hypothyroidism, unspecified; I10 Essential (primary) hypertension; I73.9 Peripheral vascular disease, unspecified; I25.10 Atherosclerotic heart disease of native coronary artery without angina pectoris; F17.210 Nicotine dependence, cigarettes, uncomplicated; I95.1 Orthostatic hypotension; G89.29 Other chronic pain; Z11.52 Encounter for screening for COVID-19; Z79.82 Long term (current) use of aspirin; Z79.02 Long term (current) use of antithrombotics/antiplatelets; Z85.89 Personal history of malignant neoplasm of other organs and systems; Z85.79 Personal history of other malignant neoplasms of lymphoid, hematopoietic and related tissues; Z98.890 Other specified postprocedural states
CPT/HCPCS: 36415; 36430; 43239; 45378; 51702; 72170; 80048; 81003; 82274; 82533; 82607; 82728; 82746; 83540; 83550; 83605; 84484; 85014; 85018; 85025; 86850; 86900; 86920; 87070; 87075; 87205; 87426; 88305; 88342; 93005; 94640; 96372; 97110; 97116; 97161; 97165; 97530; 97535; 97760; C1713; C1776; C9113; J0131; J0690; J1170; J1650; J1885; J2250; J2371; J2405; J2704; J3010; J7030; J7626; P9040; P9045

== ENCOUNTER → 2024-02-03 13:28 | Outpatient (BNVA) | payer MEDICARE, SELFPAY | PROVIDERS: PCP Family Medicine; Visit Provider Specialist | DX: Z96.642 Presence of left artificial hip joint (principal) | CPT/HCPCS: 73502; 99024 ==

== ENCOUNTER → 2024-03-08 10:23 | Outpatient (BNVA) | payer MEDICARE, SELFPAY | PROVIDERS: PCP Family Medicine; Visit Provider Specialist | DX: Z96.642 Presence of left artificial hip joint (principal); M87.052 Idiopathic aseptic necrosis of left femur | CPT/HCPCS: 73502; 99024 ==

== ENCOUNTER → 2024-04-21 09:54 | Outpatient (BNVA) | payer MEDICAID, SELFPAY | PROVIDERS: PCP Family Medicine; Visit Provider Specialist | DX: Z96.642 Presence of left artificial hip joint (principal); M87.052 Idiopathic aseptic necrosis of left femur | CPT/HCPCS: 73502; 99213 ==

== ENCOUNTER → 2024-05-03 09:49 | Outpatient (BNVA) | payer MEDICAID, SELFPAY | PROVIDERS: PCP Family Medicine; Visit Provider Internal Medicine Cardiovascular Disease | DX: I25.10 Atherosclerotic heart disease of native coronary artery without angina pectoris (principal); I73.9 Peripheral vascular disease, unspecified; I10 Essential (primary) hypertension; F17.210 Nicotine dependence, cigarettes, uncomplicated | CPT/HCPCS: 99214 ==

== ENCOUNTER → 2024-07-19 15:28 | Outpatient (BNVA) | payer MEDICAID, MEDICARE, SELFPAY | PROVIDERS: PCP Family Medicine; Visit Provider Specialist | DX: Z96.642 Presence of left artificial hip joint (principal); M87.052 Idiopathic aseptic necrosis of left femur | CPT/HCPCS: 73502; 99214 ==

== ENCOUNTER → 2024-08-04 09:31 | Outpatient (BNVA) | payer MEDICARE, MEDICAID, SELFPAY | PROVIDERS: PCP Family Medicine; Visit Provider Specialist | DX: M25.562 Pain in left knee (principal); S82.142A Displaced bicondylar fracture of left tibia, initial encounter for closed fracture; X58.XXXA Exposure to other specified factors, initial encounter | CPT/HCPCS: 27532; 73560; 73565; 99214 ==

== ENCOUNTER 2024-08-12 07:53 | Outpatient (CLI) | payer MEDICARE, MEDICAID, SELFPAY ==
--- NOTE | 2024-08-12 08:00 | CTR_ITS ---
PROCEDURE INFORMATION: Exam: CT Left Lower Extremity, Knee Exam date and time: 08/12/2024 8:14 AM Age: 53 years old Clinical indication: Injury or trauma; Fall; Blunt trauma; Injury date: 07/23/24; Injury details: Fell on 07-23 FX left knee, all over pain in left knee; Patient HX: HX of lymphoma; Additional info: Fracture due to fall TECHNIQUE: Imaging protocol: CT of the left lower extremity without contrast was performed. Exam focused on the knee. Axial, coronal and sagittal reformatted images were created and reviewed. Radiation optimization: All CT scans at this facility use at least one of these dose optimization techniques: automated exposure control; mA and/or kV adjustment per patient size (includes targeted exams where dose is matched to clinical indication); or iterative reconstruction. COMPARISON: CT knee LT wo con* [id number] 12/21/2023 12:01 PM RADIATION DOSE METRICS: Total DLP (mGy-cm): 385.53 FINDINGS: Bones/joints: Osteopenia. Increased comminution and depression of the previously seen lateral tibial plateau fracture with nondisplaced extension into the lateral aspect of the medial tibial plateau. Mild chronic deformity of the proximal fibular metaphysis. Serpentine sclerosis in the distal femur, proximal tibia and proximal fibula, suggestive of avascular necrosis. Ghost tracks from prior orthopedic hardware in the distal tibia. No dislocation. Small suprapatellar effusion. Small popliteal cyst. Soft tissues: Grossly unremarkable. CT/CT knee LT wo con* [id number] IMPRESSION: 1. Increased comminution and depression of the previously seen lateral tibial plateau fracture. 2. Additional findings, as above.
== END 2024-08-12 07:54 | disposition home or self-care (01) ==
LOC: RAD 07:53
PROVIDERS: PCP Family Medicine; Visit Provider Specialist
DX: S82.142D Displaced bicondylar fracture of left tibia, subsequent encounter for closed fracture with routine healing (principal); W19.XXXA Unspecified fall, initial encounter; M85.80 Other specified disorders of bone density and structure, unspecified site
CPT/HCPCS: 73700

== ENCOUNTER 2024-08-23 06:00 | Outpatient (CLI) | payer MEDICARE, MEDICAID, SELFPAY | END 2024-08-23 23:59 | disposition home or self-care (01) | LOC: SPT 08-24 09:19 | PROVIDERS: Visit Provider Specialist | DX: Z46.89 Encounter for fitting and adjustment of other specified devices (principal); M25.562 Pain in left knee | CPT/HCPCS: L1851 ==

== ENCOUNTER → 2024-09-08 15:53 | Outpatient (BNVA) | payer MEDICARE, MEDICAID, SELFPAY | PROVIDERS: PCP Family Medicine; Visit Provider Specialist | DX: S82.122G Displaced fracture of lateral condyle of left tibia, subsequent encounter for closed fracture with delayed healing; W19.XXXD Unspecified fall, subsequent encounter | CPT/HCPCS: 73562; 99024 ==

== ENCOUNTER 2024-09-24 10:03 | Outpatient (CLI) | payer MEDICARE, MEDICAID, SELFPAY ==
--- NOTE | 2024-09-24 10:15 | CT_ITS ---
WS: [id number] CT LEFT KNEE, NONCONTRAST HISTORY: PAIN Technique: All CT scans at [facility] use at least one of these dose optimization techniques: automated exposure control; mA and/or kV adjustment per patient size (includes targeted exams where dose is matched to clinical indication); or iterative reconstruction. DLP: 470.39 mGy.cm COMPARISON: 08/12/2024, 12/21/2023 Bones are severely demineralized. Nonhealed, depressed lateral tibial plateau fracture. Multiple osseous fragments predominantly involv ing the posterior tibial plateau. Fracture extends at least 5.5 cm into the tibial metaphysis. The ve rtical fracture extending into the metaphysis has partially healed. Incomplete healing of a comminute d slightly displaced fracture of the tibial plateau. Some of the fracture fragments at the base of th e tibial plateau fracture have healed. Fracture extends along the base of the tibial spines. Femoral condyles are intact. Moderate suprapatellar joint effusion. Mild lateral subluxation of the patella. CT/CT knee LT wo con* [id number] IMPRESSION: 1. Markedly comminuted and depressed lateral tibial plateau fracture. 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 2. The vertical component of the fracture extending into the tibial metaphysis has partially healed. Partial healing of the compressed fragments at the later al tibial plateau. 3. Moderate-sized suprapatellar joint effusion.
== END 2024-09-24 10:04 | disposition home or self-care (01) ==
LOC: RAD 10:05
PROVIDERS: PCP Family Medicine; Visit Provider Specialist
DX: S82.142A Displaced bicondylar fracture of left tibia, initial encounter for closed fracture (principal); R93.6 Abnormal findings on diagnostic imaging of limbs; X58.XXXA Exposure to other specified factors, initial encounter
CPT/HCPCS: 73700

== ENCOUNTER → 2024-10-13 14:23 | Outpatient (BNVA) | payer MEDICARE, MEDICAID, SELFPAY | PROVIDERS: PCP Family Medicine; Visit Provider Specialist | DX: S82.122G Displaced fracture of lateral condyle of left tibia, subsequent encounter for closed fracture with delayed healing (principal); Z09 Encounter for follow-up examination after completed treatment for conditions other than malignant neoplasm; X58.XXXD Exposure to other specified factors, subsequent encounter | CPT/HCPCS: 73562; 99213 ==

== ENCOUNTER → 2024-11-01 13:54 | Outpatient (BNVA) | payer MEDICARE, MEDICAID, SELFPAY | PROVIDERS: PCP Family Medicine; Visit Provider Internal Medicine Cardiovascular Disease | DX: I25.10 Atherosclerotic heart disease of native coronary artery without angina pectoris (principal); I10 Essential (primary) hypertension; F17.200 Nicotine dependence, unspecified, uncomplicated; I73.9 Peripheral vascular disease, unspecified | CPT/HCPCS: 99214 ==

== ENCOUNTER → 2024-12-08 14:12 | Outpatient (BNVA) | payer MEDICARE, MEDICAID, SELFPAY | PROVIDERS: PCP Family Medicine; Visit Provider Specialist | DX: S82.122G Displaced fracture of lateral condyle of left tibia, subsequent encounter for closed fracture with delayed healing (principal); X58.XXXD Exposure to other specified factors, subsequent encounter | CPT/HCPCS: 73562; 99213 ==

== ENCOUNTER → 2025-01-03 14:37 | Outpatient (BNVA) | payer MEDICARE, MEDICAID, SELFPAY | PROVIDERS: PCP Family Medicine; Visit Provider Specialist | DX: Z96.642 Presence of left artificial hip joint (principal) | CPT/HCPCS: 73502; 99214 ==

== ENCOUNTER 2025-01-07 13:25 | Outpatient (CLI) | payer OTHER, MEDICAID, SELFPAY ==
--- NOTE | 2025-01-07 13:45 | CT_ITS ---
WS: [id number] CT LEFT KNEE, NONCONTRAST HISTORY: fracture Technique: All CT scans at [facility] use at least one of these dose optimization techniques: automated exposure control; mA and/or kV adjustment per patient size (includes targeted exams where dose is matched to clinical indication); or iterative reconstruction. DLP: 463.64 mGy.cm COMPARISON: 09/24/2024 Severe osteopenia. Comminuted depressed lateral tibial plateau fracture with multiple fragments. Tibial plateau depression by approximately 10 mm. There is a vertical component of the fracture extending into the metaphysis. Nonunion of the fracture. Vertical component by 3.8 mm posteriorly. No significant interval healing since 09/24/2024. Also, probably no progression of the fracture. Fibular head is intact. Femoral condyles appear normal. Normal position of the patella. Small suprapatellar effusion. CT/CT knee LT wo con* [id number] IMPRESSION: 1. Comminuted, depressed lateral tibial plateau fracture with extension into t he metaphysis. Nonunion of the fracture by 3.8 mm. 2. Multiple fracture fragments along the lateral tibial plateau. 3. Lateral tibial plateau depressed by approximately 10 mm.
== END 2025-01-07 13:26 | disposition home or self-care (01) ==
PROVIDERS: PCP Family Medicine; Visit Provider Specialist
DX: S82.122K Displaced fracture of lateral condyle of left tibia, subsequent encounter for closed fracture with nonunion (principal); X58.XXXD Exposure to other specified factors, subsequent encounter; M85.862 Other specified disorders of bone density and structure, left lower leg; R93.6 Abnormal findings on diagnostic imaging of limbs
CPT/HCPCS: 73700

== ENCOUNTER → 2025-01-10 14:25 | Outpatient (BNVA) | payer OTHER, MEDICAID, SELFPAY | PROVIDERS: PCP Family Medicine; Visit Provider Specialist | DX: S82.122G Displaced fracture of lateral condyle of left tibia, subsequent encounter for closed fracture with delayed healing (principal); X58.XXXD Exposure to other specified factors, subsequent encounter | CPT/HCPCS: 99214 ==

== ENCOUNTER 2025-06-24 10:45 | Outpatient (CLI) | payer OTHER, MEDICAID, SELFPAY ==
--- NOTE | 2025-06-24 10:59 | XR_ITS ---
WS: [email or web address] XR knee LT 3V* [id number] REASON FOR EXAM: PATHOLOGICAL FX OF L FEMURE DUE TO OSTEOPOROSIS W/NONUNION FINDINGS: Decreased bone density. Comminuted fracture of the proximal lateral tibia and tibial plateau with nonunion. The fracture site is relatively stable and unchanged compared to 08/04/2024. XR/XR knee LT 3V* [id number] IMPRESSION: Proximal tibial fracture as above.
--- NOTE | 2025-06-24 10:59 | XR_ITS ---
WS: [email or web address] XR hip LT 2-3V wo/w pel* [id number] REASON FOR EXAM: CLOSED LEFT HIP,FRACTURE,SEQUELA FINDINGS: Total left hip arthroplasty with long intramedullary portion of the femoral component. Components of the arthroplasty are intact and in proper position and alignment unchanged compared to 01/03/2025. XR/XR hip LT 2-3V wo/w pel* [id number] IMPRESSION: Stable total left hip arthroplasty.
--- NOTE | 2025-06-24 10:59 | XR_ITS ---
WS: [email or web address] XR tibia fibula LT 2V [id number] REASON FOR EXAM: PATHOLOGICAL FX OF L FEMUR DUE TO OSTEOPOROSIS W/NONUNION FINDINGS: Significant decreased bone density. Proximal comminuted nonunion fracture of the proximal lateral tibia and tibial plateau as noted on the knee examination. The remainder of the tibia and fibula are intact. No periosteal reaction. Previous nondisplaced transverse fracture of the proximal tibia (12/14/2023) has healed. Dense inhomogeneous sclerosis of the talar dome, posterior, and mid talus. This may indicate chronic nonhealed fracture as well. No change from 12/14/2023. XR/XR tibia fibula LT 2V [id number] IMPRESSION: Proximal tibial fracture and possible talar fracture as above.
== END 2025-06-24 10:46 | disposition home or self-care (01) ==
LOC: RAD 10:52
PROVIDERS: PCP Family Medicine; Visit Provider Family Medicine
DX: M80.062A Age-related osteoporosis with current pathological fracture, left lower leg, initial encounter for fracture (principal)
CPT/HCPCS: 73502; 73562; 73590